=== PATIENT | female | born 1970 | race Caucasian/White ===

== ENCOUNTER → 2017-08-22 16:35 | Outpatient (CLI) | payer OTHER, SELFPAY ==
[2017-08-22 18:00] LABS: Erythrocyte Sedimentation Rate 25 mm/hr (0-20)
[2017-08-22 18:26] LABS: ALB/GLOB Ratio 1.1 RATIO (0.9-2.4); AST(SGOT) 19 U/L (15-37); Alanine Aminotransfer ALT/SGPT 32 U/L (13-56); Albumin, Serum 3.9 g/dL (3.2-5.0); Alkaline Phosphatase 79 U/L (45-117); Anion Gap 6 (5-15); BUN 13 mg/dL (7-18); BUN/Creat Ratio 15.8 RATIO (10-20); Calcium,Total 8.8 mg/dL (8.5-10.1); Chloride 109 mmol/L (98-107); Creatinine, Serum 0.82 mg/dL (0.55-1.02); EST Glomerular Filtration Rate 78 mL/min (>60); Est Glom Filt Rate - Afr Amer 95 mL/min (>60); Ferritin 126 ng/mL (8-252); Globulin 3.4 g/dL (2.2-4.2); Glucose 100 mg/dL (74-106); Potassium 3.8 mmol/L (3.5-5.1); Protein, Total 7.3 g/dL (6.4-8.2); Sodium Level 140 mmol/L (136-145); Thyroid Stim Hormone (TSH) 3.54 uIU/mL (0.358-3.74)
[2017-08-22 19:02] LABS: Microalbumin,Random Urine 39.4 mg/L (NO RANGE EST.); Microalbumin:Creatinine Ratio 22.4 mg/g CRE (<30 mg/g CRE)
[2017-08-24 11:18] LABS: Hep C Antibodies <0.1 s/co ratio (0.0-0.9)
[2017-08-26 16:09] LABS: Anti-Centromere B Ab <0.2 AI (0.0-0.9); Anti-Chromatin <0.2 AI (0.0-0.9); Anti-Jo <0.2 AI (0.0-0.9); Anti-Scleroderma-70 AB <0.2 AI (0.0-0.9); RNP Ab <0.2 AI (0.0-0.9); SJOGREN'S Anti-SS-A test < 0.2 AI (0.0-0.9); SJOGREN'S Anti-SS-B test < 0.2 AI (0.0-0.9); Smith Ab <0.2 AI (0.0-0.9)
[2017-08-27 11:43] LABS: Anti-dsDNA Ab <1 IU/mL (0-9)
== END ==
PROVIDERS: Family Provider Family Medicine; PCP Family Medicine; Visit Provider Family Medicine
DX: R53.83 Other fatigue (principal); R25.2 Cramp and spasm
CPT/HCPCS: 36415; 80053; 82043; 82570; 82728; 83735; 84443; 85652; 86038; 86225; 86235; 86803

== ENCOUNTER → 2017-09-12 15:15 | Outpatient (CLI) | payer OTHER, SELFPAY ==
[2017-09-12 17:56] LABS: Absolute Lymphocyte Count 2.92 X10^3/ul (0.83-4.51); Absolute Neutrophil Count 6.2 X10^3/uL (2.0-7.7); Basophil# 0.02 X10^3/uL; Basophil% 0.2 % (0-1); Eosinophil# 0.22 X10^3/uL; Eosinophils% 2.2 % (0-5); Hematocrit 37.5 % (37-47); Hemoglobin 12.8 g/dl (12.0-15.0); Lymphocyte # 2.92 X10^3/ul (4.0); Lymphocyte % 29.6 % (19-41); Mean Corp Hgb Conc 34.1 g/gl (32-36); Mean Corpuscular Hgb 30.3 pg (27.0-32.0); Mean Corpuscular Volume 88.9 fL (81-99); Mean Platelet Vol. 10.5 fl (6.2-12.0); Monocyte# 0.45 X10^3/uL; Monocyte% 4.6 % (0-10); Neutrophil # 6.23 X10^3/uL (2.7-7.7); Neutrophil % 63.3 % (47-70); Platelet Count 269 K/mm3 (150-450); RBC Distribution Width CV 13.8 % (11.6-14.6); RBC Distribution Width SD 44.9 fl (35.1-43.9); Red Blood Count 4.22 M/mm3 (4.2-5.4); White Blood Count 9.9 K/mm3 (4.4-11.0)
[2017-09-12 17:58] LABS: POSITIVE COUNT NO; POSITIVE DIFFERENTIAL NO; POSITIVE MORPHOLOGY NO
[2017-09-12 18:17] LABS: Erythrocyte Sedimentation Rate 25 mm/hr (0-20)
== END ==
PROVIDERS: Family Provider Family Medicine; PCP Family Medicine; Visit Provider Family Medicine
DX: R25.2 Cramp and spasm (principal)
CPT/HCPCS: 36415; 85025; 85652

== ENCOUNTER → 2018-05-14 15:19 | Outpatient (CLI) | payer OTHER, SELFPAY ==
--- NOTE | 2018-05-14 15:29 | RAD_ITS ---
STUDY: X-RAY CHEST REASON FOR EXAM: Female, 48 years old. Shortness of breath/dyspnea. TECHNIQUE: PA and lateral views of the chest. COMPARISON: None. FINDINGS: The lungs are clear and expanded. Scattered calcified granulomas. There is no demonstrated pleural abnormality. Normal size heart. Normal mediastinum and ayana. Normal visualized pulmonary arteries. Normal visualized aortic arch and descending thoracic aorta. Normal visualized thoracic spine. Normal visualized ribs, clavicles, and shoulders. There is no demonstrated abnormality of the visualized soft tissue structures of the upper abdomen. RAD/Chest PA and Lateral IMPRESSION: Normal x-ray examination of the chest. Electronically Signed: Jeremy Santana MD at 15:48 EST , Service support ,
--- OUTSIDE RECORDS SUMMARY | 2018-07-16 17:59 | XMS RPT_ITS ---
:1970 Author Organization [facility] Care Team Providers Name Role Phone Luis Whitney Attending Unavailable Luis Whitney Referring Unavailable Ron Gutierrez Primary Care Unavailable Ron Gutierrez Attending Unavailable Matt, Ron Referring Unavailable Gutierrez, Ron Primary Care Unavailable Gutierrez, Ron Attending Unavailable Gutierrez, Ron Referring Unavailable Gutierrez, Ron Primary Care Unavailable PROBLEMS PROBLEMS DATE TYPE CONDITION / CODE ATTENDING STATUS SOURCE 08/22/2017 Unknown R53.83 - Other Ron Gutierrez Active Clear fatigue / Community R53.83(ICD-10) Hospital Repository PROCEDURES PROCEDURES No Procedure Records FoundRESULTS RESULTS CHEST PA AND LATERAL Observed: 05/14/2018 Status: F Source: [place] 3:29 PM [facility] REPOSITORY [facility] Imaging Services [address] [place] [address] Chest PA and Lateral MR#: [id number] Acct: [id number] Name: SANDY DAVIDSON Rep #: [id number] : 1970 F 48 From: Jeremy Santana MD PCP: Ron Gutierrez MD Status: REG CLI Study: Chest PA and Lateral Date of Exam: 05/14/18 Exam# [id number] Ordering Dr: Luis Whitney STUDY: X-RAY CHEST REASON FOR EXAM: Female, 48 years old. Shortness of breath/dyspnea. TECHNIQUE: PA and lateral views of the chest. COMPARISON: None. FINDINGS: The lungs are clear and expanded. Scattered calcified granulomas. There is no demonstrated pleural abnormality. Normal size heart. Normal mediastinum and ayana. Normal visualized pulmonary arteries. Normal visualized aortic arch and descending thoracic aorta. Normal visualized thoracic spine. Normal visualized ribs, clavicles, and shoulders. There is no demonstrated abnormality of the visualized soft tissue structures of the upper abdomen. RAD/Chest PA and Lateral IMPRESSION: Normal x-ray examination of the chest. Electronically Signed: Jeremy Santana MD at 15:48 EST , Service support , CC: SRIRAM Whitney; Ron Gutierrez MD Revival Clerk: Signed CBC W/DIFF, AUTOMATED Collected: 09/12/2017 Status: F Source: [place] 3:20 PM [facility] REPOSITORY TYPE CODE TESTS RESULT OUT OF RANGE REFERENCE UNITS LAB L100.1000 4.4-11.0 K/mm3 Normal WBC 9.9 LAB L100.1200 4.2-5.4 M/mm3 Normal RBC 4.22 LAB L100.1300 12.0-15.0 g/dl Normal HGB 12.8 LAB L100.1400 37-47 % Normal HCT 37.5 LAB L100.1500 81-99 fL Normal MCV 88.9 LAB L100.1600 27.0-32.0 pg Normal MCH 30.3 LAB L100.1700 32-36 g/gl Normal MCHC 34.1 LAB L100.1810 11.6-14.6 % Normal RDW CV 13.8 LAB L100.1820 35.1-43.9 fl High RDW SD 44.9 LAB L100.1900 150-450 K/mm3 Normal PLT 269 LAB L100.2000 6.2-12.0 fl Normal MPV 10.5 LAB L100.2100 47-70 % Normal NEUT% 63.3 LAB L100.2200 19-41 % Normal LY% 29.6 LAB L100.2300 0-10 % Normal MONO% 4.6 LAB L100.2400 0-5 % Normal EO% 2.2 LAB L100.2500 0-1 % Normal BASO% 0.2 LAB L100.2550 0.0-0.9 % Normal IM GRAN % 0.100 Result Comment: IG% - Immature Granulocytes (promyelocytes, myelocytes and metamyelocytes) > 1% indicates that a LEFT SHIFT is Present. LAB L100.2620 2.0-7.7 X10 3/uL Normal Absolute Neut 6.2 LAB L100.2720 0.83-4.51 X10 3/ul Normal Absolute Lymph 2.92 Performed By: #### L100.0100, L101.9900 #### [facility] [address] [place], [place], [id number] ERYTHROCYTE SED RATE Collected: 09/12/2017 Status: F Source: [place] 3:20 PM [facility] REPOSITORY TYPE CODE TESTS RESULT OUT OF RANGE REFERENCE UNITS LAB L102.0000 0-20 mm/hr High SED RATE 25 Performed By: #### L100.0100, L101.9900 #### [facility] [address] [place], [place], [id number] ERYTHROCYTE SED RATE Collected: 08/22/2017 Status: F Source: [place] 4:43 PM [facility] REPOSITORY TYPE CODE TESTS RESULT OUT OF RANGE REFERENCE UNITS LAB L102.0000 0-20 mm/hr High SED RATE 25 Performed By: #### L101.9900 #### [facility] [address] [place], [place], [id number] COMPREHENSIVE METABOLIC Collected: 08/22/2017 Status: F Source: [facility] 4:43 PM [facility] REPOSITORY TYPE CODE TESTS RESULT OUT OF RANGE REFERENCE UNITS LAB L501.0100 74-106 mg/dL Normal GLU 100 Result Comment: Fasting Glucose result from 100 to 125 mg/dL suggests IMPAIRED HOMEOSTASIS per A.D.A. criteria. Please note revised GLUCOSE reference range effective 2017. LAB L501.1000 7-18 mg/dL Normal BUN 13 LAB L501.1100 0.55-1.02 mg/dL Normal CREAT,SERUM 0.82 Result Comment: The validity of the calculated GFR AND GFRAA in patients over 70 years has not been determined. Clinical correlation is essential. LAB L501.1110 >60 mL/min Normal EST GFR 78 Result Comment: Non- GFR Calc LAB L501.1115 >60 mL/min Normal EST GFR - AA 95 Result Comment: GFR Calc LAB L501.1300 10-20 RATIO Normal BUN/CRE 15.8 LAB L501.1500 6.4-8.2 g/dL T Normal PROT 7.3 LAB L501.1800 3.2-5.0 g/dL Normal ALB 3.9 LAB L501.1950 2.2-4.2 g/dL Normal GLOB 3.4 LAB L501.2000 0.9-2.4 RATIO Normal A/G 1.1 LAB L501.2200 8.5-10.1 mg/dL CA Normal 8.8 LAB L501.4100 15-37 U/L Normal AST 19 LAB L501.4305 45-117 U/L Normal ALK P 79 LAB L501.4405 13-56 U/L Normal ALT 32 LAB L501.4600 0.20-1.00 mg/dL T Normal BILI 0.60 LAB L501.5300 136-145 mmol/L NA Normal 140 LAB L501.5600 3.5-5.1 mmol/L K Normal 3.8 LAB L501.5900 98-107 mmol/L High CL 109 LAB L501.6100 21.0-32.0 mmol/L Normal CO2 25.0 LAB L501.6200 5-15 Normal GAP 6 Performed By: #### L500.4050, L501.5200, L501.9520, L503.6550 #### [facility] [address] [place], [address] MAGNESIUM Collected: 08/22/2017 Status: F Source: [place] 4:43 PM [facility] REPOSITORY TYPE CODE TESTS RESULT OUT OF RANGE REFERENCE UNITS LAB L501.5200 1.6-2.6 mg/dL Normal MG 2.0 Performed By: #### L500.4050, L501.5200, L501.9520, L503.6550 #### [facility] [address] [place], [place], [id number] THYROID STIM HORMONE Collected: 08/22/2017 Status: F Source: [place] (TSH) 4:43 PM [facility] REPOSITORY TYPE CODE TESTS RESULT OUT OF RANGE REFERENCE UNITS LAB L501.9520 0.358-3.74 uIU/mL Normal TSH 3.54 Performed By: #### L500.4050, L501.5200, L501.9520, L503.6550 #### [facility] [address] [place], [place], [id number] FERRITIN Collected: 08/22/2017 Status: F Source: [place] 4:43 PM [facility] REPOSITORY TYPE CODE TESTS RESULT OUT OF RANGE REFERENCE UNITS LAB L503.6550 8-252 ng/mL Normal FERRITIN 126 Performed By: #### L500.4050, L501.5200, L501.9520, L503.6550 #### [facility] [address] [place], [place], [id number] MICROALB:CREAT Collected: 08/22/2017 Status: F Source: [place] RATIO,RANDOM UR 4:43 PM [facility] REPOSITORY TYPE CODE TESTS RESULT OUT OF RANGE REFERENCE UNITS LAB L501.1200 NO RANGE EST. mg/dL Normal UR CREAT 176.00 LAB L502.0500 NO RANGE EST. mg/L Normal 39.4 MICROALBUMIN ,UR LAB L502.0600 <30 mg/g CRE mg/g CRE Normal 22.4 MALB:CREAT Performed By: #### L502.0250 #### [facility] [address] [place], [place], [id number] HEPATITIS C ANTIBODIES Collected: 08/22/2017 Status: F Source: [place] 4:43 PM [facility] REPOSITORY TYPE CODE TESTS RESULT OUT OF RANGE REFERENCE UNITS LAB L3100.0650 0.0-0.9 s/co ratio Normal HEP C AB <0.1 Result Comment: Negative: < 0.8 Indeterminate: 0.8 - 0.9 Positive: > 0.9 The CDC recommends that a positive HCV antibody result be followed up with a HCV Nucleic Acid Amplification test (729842). Performed at: - [facility] [address] [id number] Pediatrics Teacher: Perry Ríos PhD, Phone: [phone] Performed By: #### L3100.0625 #### [facility] (refer to report for specific site) refer to report for address and phone number LUIS COMPREHENSIVE PANEL Collected: 08/22/2017 Status: F Source: [place] 4:43 PM [facility] REPOSITORY TYPE CODE TESTS RESULT OUT OF RANGE REFERENCE UNITS LAB L3100.5500 0-9 IU/mL Normal dsDNA AB <1 Result Comment: Negative <5 Equivocal 5 - 9 Positive >9 LAB L3100.9200 0.0-0.9 AI Anti-SS-A Normal < 0.2 LAB L3100.9300 0.0-0.9 AI Anti-SS-B Normal < 0.2 LAB L3410.0427 0.0-0.9 AI ANTICHROMATIN Normal <0.2 LAB L3410.0500 0.0-0.9 AI ANTI-YARED Normal <0.2 LAB L3410.0700 0.0-0.9 AI ANTISCLER Normal <0.2 LAB L3410.1200 0.0-0.9 AI MANAGER PSYCHOLOGY Ab Normal <0.2 LAB L3410.1300 0.0-0.9 AI GUTIERREZ Ab Normal <0.2 LAB L3410.4010 0.0-0.9 AI ANTI-CENT B Normal <0.2 LAB L3410.4150 . COMMENT Normal Comment Result Comment: Autoantibody Disease Association Condition Frequency --------- Antinuclear Antibody, SLE, mixed connective Direct (LUIS-D) tissue diseases --------- dsDNA SLE 40 - 60% --------- Chromatin Drug induced SLE 90% SLE 48 - 97% --------- SSA (Ro) SLE 25 - 35% Sjogren's Syndrome 40 - 70% Lupus 100% --------- SSB (La) SLE 10% Sjogren's Syndrome 30% --------- Sm (anti-Gutierrez) SLE 15 - 30% --------- MANAGER PSYCHOLOGY Mixed Connective Tissue Disease 95% (U1 nRNP, SLE 30 - 50% anti-ribonucleoprotein) Polymyositis and/or Dermatomyositis 20% --------- Scl-70 (antiDNA Scleroderma (diffuse) 20 - 35% topoisomerase) Crest 13% --------- Yared-1 Polymyositis and/or Dermatomyositis 20 - 40% --------- Centromere B Scleroderma - Crest variant 80% Performed at: - [facility] [id number] Pediatrics Teacher: Perry Ríos PhD, Phone: [phone] Performed By: #### L3100.5440 #### [facility] (refer to report for specific site) refer to report for address and phone number ALLERGIES ALLERGIES DATE TYPE / CODE NAME / CODE REACTION SEVERITY SOURCE 02/02/2017 Drug No Known Unknown [facility] Allergy/4160 Allergies/F00 Hospital 97835(SNOMED [id number](RXNOR Repository CT) M) ENCOUNTERS ENCOUNTERS ADMIT/DISCHARGE ACCOUNT ADMITTING ENCOUNTER LOCATION SOURCE NUMBER CLASS 05/14/2018 [id number] Ambulatory [facility] Marybel 6 [facility] ing:MTRAD Repository 09/12/2017 [id number] Ambulatory [place]bel Marybel 7 [facility] ing:MTLAB Repository 08/22/2017 [id number] Ambulatory [place]bel Marybel 5 [facility] ing:MTLAB Repository PAYERS PAYERS ENCOUNTER GUARANTOR PAYER SUBSCRIBER SOURCE 05/14/2018 SANDY Ibanez Primary SANDY Franco [id number] [place] Insurance:MED[facility]ER[id number] [address]Eox: Number: Repository [id number] (HP) Date:[id number] [address] [place], [place] [id number]: 05/14/2018 Secondary NOT GIVENUNK Marybel Insurance:SELF PAY [facility] Number: Effective Repository Date:2018-05-14 09/12/2017 SANDY R Primary SANDY R Clear [id number] [place] Insurance:[place] [facility] [id number] [address]Rls: Number: Repository [id number] (HP) Date:[id number] [address] [place] [phone]: 09/12/2017 Secondary NOT GIVENUNK Marybel Insurance:SELF PAY [facility] Number: Effective Repository Date:2017-09-12 08/22/2017 SANDY R Primary SANDY R [place] [id number] [place] Insurance:MEDICAL [place] [facility] [id number] [address]Vyc: Number: Repository [id number] (HP) Date:[id number] [address] [place] [phone]: 08/22/2017 Secondary NOT GIVENUNK Marybel Insurance:SELF PAY [facility] Number: Effective Repository Date:2017-08-22
== END ==
PROVIDERS: Family Provider Family Medicine; PCP Family Medicine; Referring Provider Nurse Practitioner Family; Visit Provider Nurse Practitioner Family
DX: J06.9 Acute upper respiratory infection, unspecified (principal)
CPT/HCPCS: 71046

== ENCOUNTER → 2018-05-26 15:05 | Outpatient (CLI) | payer OTHER, SELFPAY ==
--- NOTE | 2018-05-26 15:08 | RAD_ITS ---
STUDY: X-RAY CHEST REASON FOR EXAM: Female, 48 years old. Dyspnea and shortness of breath. TECHNIQUE: PA and lateral views of the chest. COMPARISON: Comparison is made with prior study dated May 14, 2018. FINDINGS: The lungs are clear and expanded. Scattered calcified granulomas. There is no demonstrated pleural abnormality. Normal size heart. Normal mediastinum and ayana. Normal visualized pulmonary arteries. There is atherosclerotic tortuosity of the aortic arch and descending thoracic aorta. There are mild degenerative changes of the visualized thoracic spine. Normal visualized ribs, clavicles, and shoulders. There is no demonstrated abnormality of the visualized soft tissue structures of the upper abdomen. RAD/Chest PA and Lateral IMPRESSION: No acute abnormality is seen. Electronically Signed: Jeremy Santana MD at 11:25 EST , Service support ,
== END ==
PROVIDERS: Family Provider Family Medicine; PCP Family Medicine; Referring Provider Family Medicine; Visit Provider Family Medicine
DX: R06.02 Shortness of breath (principal)
CPT/HCPCS: 71046

== ENCOUNTER 2018-05-30 19:23 | Emergency (ER) | payer OTHER, SELFPAY ==
[2018-05-30 19:25] VITALS: BP 134/78; PULSE 87; RESP 16; TEMP 37; O2SAT 98; BMI 30.2
--- NOTE | 2018-05-30 20:00 | ED.DCSUM_ITS ---
- ER Visit Summary Date of Service: 05/30/18 Chief Complaint: Right upper quadrant abdominal pain History of Present Illness: The patient is a 48 F no significant past medical history. Prior appendectomy. Patient states she has had bronchitis. She been coughing a lot. She is currently on Levaquin and her second round of prednisone. States that she has had right upper quadrant abdominal pain for 10 days. She thinks she may have pulled something while coughing. She denies any nausea, vomiting or diarrhea. No fever. No food intolerances. She was seen at the [facility] urgent care earlier [facility] and had a negative chest x-ray done there. She denies any food intolerances. She denies any dysuria. No trauma. Physical Examination: Well-appearing middle-age female. Vital signs are stable. She is afebrile. HEENT exam unremarkable. Neck nontender no lymphadenopathy. Lungs clear to auscultation bilaterally. Heart regular rate and rhythm no murmur. Abdomen soft. Mild right upper quadrant tenderness below the rib cage. The ribs themselves are nontender and nondeformed. There is no signs of trauma. No ecchymosis or bruising. He had a quadrants of the abdomen including the right lower quadrant are nontender. Normal bowel sounds. No peritoneal signs. No hernias or masses. Remedies moves all 4. Calves nontender without edema. Neurologically she is awake alert with no focal motor deficits. Back exam nontender. Skin unremarkable. Test Results: CBC shows elevated white count 18,400. Hemoglobin 14. No bands. The white count may be elevated from infection but could also be secondary to her currently being on prednisone. Chemistries normal. Normal creatinine and gap. Liver enzymes normal. Lipase normal. Due to the elevated white count and right upper quadrant pain we obtained a ultrasound of the right upper quadrant. This showed no gallstones. No cholecystitis. And possibly a gallbladder polyp. Versus sludge. Read by the radiologist. Emergency Department Course and Treatment: Patient with right upper quadrant abdominal pain. Repeat exam at 2220 patient doing well. She and I went over all of her test results. She is comfortable being discharged home. She will be given 2 Wallace to take home for pain. Otherwise Tylenol and Motrin. Treatment Plan: Tylenol and Motrin for pain. Follow-up with your primary care physician. Disposition: Discharge Impression: Acute right upper quadrant abdominal pain of uncertain etiology This note was generated with Ksplice dictation software. It may contain incorrect words, spelling, and punctuation that were not noted in review of the chart prior to signing ED Disposition - Plan for ED Patient: Referrals: Ron Gutierrez MD [Primary Care Provider] -
[2018-05-30 20:14] LABS: Absolute Lymphocyte Count 0.84 X10^3/ul (0.83-4.51); Absolute Neutrophil Count 17.3 X10^3/uL (2.0-7.7); Basophil# 0.01 X10^3/uL; Basophil% 0.1 % (0-1); Hematocrit 41.9 % (37-47); Hemoglobin 14.2 g/dl (12.0-15.0); Lymphocyte # 0.84 X10^3/ul (4.0); Lymphocyte % 4.6 % (19-41); Mean Corp Hgb Conc 33.9 g/gl (32-36); Mean Corpuscular Hgb 30.6 pg (27.0-32.0); Mean Corpuscular Volume 90.3 fL (81-99); Mean Platelet Vol. 9.7 fl (6.2-12.0); Monocyte# 0.18 X10^3/uL; Neutrophil # 17.26 X10^3/uL (2.7-7.7); Neutrophil % 93.8 % (47-70); POSITIVE COUNT NO; POSITIVE DIFFERENTIAL NO; POSITIVE MORPHOLOGY NO; Platelet Count 274 K/mm3 (150-450); RBC Distribution Width CV 14.7 % (11.6-14.6); RBC Distribution Width SD 48.3 fl (35.1-43.9); Red Blood Count 4.64 M/mm3 (4.2-5.4); White Blood Count 18.4 K/mm3 (4.4-11.0)
[2018-05-30 20:32] LABS: AST(SGOT) 14 U/L (15-37); Alanine Aminotransfer ALT/SGPT 40 U/L (13-56); Alkaline Phosphatase 78 U/L (45-117); Anion Gap 10 (5-15); BUN 19 mg/dL (7-18); BUN/Creat Ratio 24.1 RATIO (10-20); Bilirubin, Direct 0.12 mg/dL (0.00-0.30); Calcium,Total 9.4 mg/dL (8.5-10.1); Chloride 105 mmol/L (98-107); Creatinine, Serum 0.79 mg/dL (0.55-1.02); EST Glomerular Filtration Rate 82 mL/min (>60); Est Glom Filt Rate - Afr Amer 99 mL/min (>60); Estimated Creatinine Clearance 91.32 ml/min; Globulin 3.9 g/dL (2.2-4.2); Glucose 130 mg/dL (74-106); Lipase 74 U/L (73-393); Protein, Total 7.9 g/dL (6.4-8.2); Sodium Level 137 mmol/L (136-145)
--- NOTE | 2018-05-30 20:42 | US_ITS ---
STUDY: ABDOMINAL ULTRASOUND - RIGHT UPPER QUADRANT REASON FOR VISIT: Female, 48 years old. Right upper quadrant pain TECHNIQUE: Ultrasound evaluation of the right upper quadrant was performed with real-time and static coffey-scale imaging. TECHNICAL QUALITY: Adequate. COMPARISON: None. FINDINGS: Liver: The liver measures 13.6 cm. There is normal echogenicity of the liver. The bile ducts are within normal limits. There is hepatic color flow. The direction of portal flow is hepatopetal. There is no demonstrated mass lesion. Gallbladder: Normal distended gallbladder. The gallbladder wall measures 2.0 mm. There is a negative sonographic Chau's sign. There is no pericholecystic fluid. There are no gallstones. There is a small nonshadowing polypoid structure measuring 7 mm. Common Bile Duct (C.B.D.): The common bile duct measures 3 mm. Pancreas: There is normal echogenicity of the visualized pancreas. There is no demonstrated pancreatic mass or cyst. Right Kidney: Normal size of the right kidney. The right kidney measures 11.6 cm. Normal renal cortex. The right cortex measures 1.8 cm. There is no demonstrated renal mass or cyst. There is no right hydronephrosis. US/Gallbladder IMPRESSION: 1. No shadowing gallstones or sonographic evidence of cholecystitis/biliary obstruction. 2. Subcentimeter gallbladder polyp versus tumefactive sludge. Electronically Signed: Gordo Cruz MD at 21:24 EST , Service support ,
[2018-05-30 22:12] VITALS: BP 132/76; PULSE 88; RESP 16; O2SAT 97
--- NOTE | 2018-05-30 22:26 | DCINST.ED_ITS ---
ED Disposition - Plan for ED Patient: Disposition: Home or Assisted Living Instructions: ED Abdominal Pain Unkn Cause Referrals: Ron Gutierrez MD [Primary Care Provider] - 3-5 Days if not improving Additional Instructions: Your pain may be secondary to strain of your abdominal wall from coughing. Your labs are unremarkable other than elevated white count which could be secondary to you being on the prednisone. The gallbladder ultrasound was unremarkable as were the other labs. Limited [place] for pain. Otherwise Tylenol and Motrin. Follow-up with your doctor if not improving.
[2018-05-30] MEDS: HYDROcodone Bitartrate/Apap 5/325 Tablet PO (22:39)
[2018-05-30 22:40] VITALS: BP 136/80; PULSE 89; RESP 16; O2SAT 98
== END 2018-05-30 22:40 | disposition home or self-care (01) ==
PROVIDERS: Emergency Provider Emergency Medicine; Family Provider Family Medicine; PCP Family Medicine
DX: R10.11 Right upper quadrant pain (principal); J40 Bronchitis, not specified as acute or chronic; Z72.0 Tobacco use
CPT/HCPCS: 76705; 80048; 80076; 83690; 85025; 99284; A4216

== ENCOUNTER 2018-07-24 06:45 | Emergency (ER) | payer OTHER, SELFPAY ==
[2018-07-24 06:47] VITALS: BP 121/79; PULSE 80; RESP 18; TEMP 36.6; O2SAT 100; BMI 30.3
--- NOTE | 2018-07-24 06:53 | RAD_ITS ---
STUDY: X-RAY - RIGHT SHOULDER REASON FOR EXAM: Upper humeral pain. TECHNIQUE: 4 view(s) of the shoulder. COMPARISON: None. FINDINGS: Normal glenohumeral articulation. Normal acromioclavicular joint. Normal acromion. Normal humeral head and visualized proximal humerus. There is a calcification at the inferior aspect of the glenohumeral joint suggestive of an intra-articular body. Normal visualized pulmonary apex. RAD/Shoulder min 2 Views IMPRESSION: Calcification at the inferior aspect of the glenohumeral joint suggestive of an intra-articular body. Electronically Signed: Luke Nguyen MD at 7:55 EDT Tel , Service support ,
--- NOTE | 2018-07-24 06:53 | ED.VIS.UPPEX ---
History of Present Illness Chief Complaint: Upper Extremity Injury Informant: Patient Onset: Yesterday Context: Sudden Onset Timing: Continuous Quality of Pain: Aching Current Severity: Moderate Maximum Severity: Severe Worsened by: Certain movements Relieved by: Nothing Associated Symptoms: Loss of Funtion - Secondary to pain. Negative for: Parasthesia, Weakness Narrative: Patient is a middle-aged [id number] woman who presents with pain that she localizes from the right shoulder to the right elbow. She cannot be more specific. In a radicular/dermatomal distribution. She says certain positions hurt more than others. Denies paresthesia, anesthesia motors. She denies prior problems with her shoulder. She has no other complaints. She has not taken anything for it. Tetanus Immunization: Unknown Prior similar symptoms: No Recent Illness/Hospitalization: No Past Medical History - Allergies and Home Meds Allergies/Adverse Reactions: Allergies No Known Allergies Allergy (Verified 07/24/18 06:50) Primary Care Physician: Ron Gutierrez MD [Primary Care Provider] - Prior records reviewed: Yes Past Medical History: None Lives: Alone Smoking Status: Current every day smoker Drugs: None Review of Systems General: Denies: Chills, Fever, Malaise, Subjective, Sweats, Weight loss, - Cardiovascular: Denies: Chest pain, Palpitations, Heart racing, -, - Respiratory: Denies: Dyspnea, Cough, Sputum, Dyspnea on exertion, Orthopnea, Paroxysmal nocturnal dyspnea, -, - Gastrointestinal: Denies: Nausea, Vomiting Musculoskeletal: Reports: Extremity Pain - Localizes the pain from the right shoulder to the right elbow.. Denies: Myalgias, Arthralgias, Neck pain, Back pain Skin: Denies: Rash Neurological: Denies: Headache, Weakness, Parasthesia, Numbness, -, - Hematologic: Denies: Easy bruising, Easy bleeding Physical Exam Vital Signs/Narrative: Vital Signs Temp Pulse Resp BP Pulse Ox 07/24/18 06:47 97.8 F 80 18 121/79 H 100 Inital Vital Signs reviewed: Yes - Vital signs are unremarkable. Right Shoulder: Limited ROM - Patient reports difficulty abduction, internal and external rotation of the right shoulder. She reports having difficulty unclamping her belt buckle and brushing her teeth this morning. There is no history of trauma. She has not noted a rash. She has no history of neck problems.. Negative for: Abrasion, Contusion, Deformity, Edema, Hematoma, - Right Humerus: Negative for: Abrasion, Contusion, Deformity, Edema, Hematoma, Limited ROM, - Right Elbow: Negative for: Abrasion, Contusion, Deformity, Edema, Hematoma, Limited ROM, - - There is no pain the patient over the olecranon process, lateral medial epicondyle or radial head. She did complain of pain in the arm/shoulder with supination pronation. Right Forearm: Negative for: Abrasion, Contusion, Deformity, Edema, Hematoma, Limited ROM, - Right Wrist: Negative for: Abrasion, Contusion, Deformity, Edema, Hematoma, Limited ROM, - Right Hand: Negative for: Abrasion, Contusion, Deformity, Edema, Hematoma, Limited ROM, - - Movement of her digits caused her discomfort. Radial pulse is palpable. Capillary refill is normal. General: Negative for: Well nourished, Well developed, Obese, Cachectic, Contractures, Unkempt, - Head: Normocephalic, Atraumatic Eyes: Perrl, EOMI. Negative for: Pale conjunctiva ENT: No Trauma, Moist Mucous Membranes Neck: Nontender, Full ROM. Negative for: Spinal Tenderness, Paraspinal Tenderness Cardiovascular: Regular rate, Regular rhythm, No murmurs, Normal S1, Normal S2 Respiratory: No distress, CTA bilaterally Back: Negative for: Spinal Tenderness, Paraspinal Tenderness Skin: Normal color, No rash. Negative for: Cyanosis, Jaundice, Rash Neurological: Alert, Oriented x3, Cranial nerves II-XII grossly intact, Normal Strength, Normal Sensation, Normal DTR - Biceps, brachialis and triceps reflexes are 3+ and symmetric. Axillary, median, radial and ulnar function intact. Psychological: - - Affect is flat. Diagnostic/Tx/Re-eval Chest X-Ray - ED: Read by ED Physician 4 view x-ray of the right shoulder was obtained and reveals no fracture, subluxation or dislocation. There are mild arthritic changes. There is no evidence of calcification of the supraspinatus tendon. - Medical Decision Making Patient with acute onset of shoulder pain. She is unable to specify specific location. There are no dermatologic lesions. There are no neurovascular deficits. She reports her hand is cold. Both hands are cold to touch. Will obtain x-ray to determine if there is any arthritic changes that may explain her discomfort. She was treated with Naprosyn since no contraindication. Differential would include muscular pain, arthritis, tendinitis, malignancy or occult fracture. Since arthritic changes noted will treat with NSAIDs is no contra indication have her follow-up with Dr. Ron Gutierrez her PCP. ED Disposition - Plan for ED Patient: Disposition: Home or Assisted Living Diagnosis: Pain of right shoulder region Instructions: ED Shoulder Pain [facility]O Prescriptions: Naproxen [Naprosyn] 500 mg PO BID #14 tab Referrals: Ron Gutierrez MD [Primary Care Provider] - 3-5 Days if not improving
[2018-07-24] MEDS: Naproxen 500 MG Tablet PO (06:58)
[2018-07-24 07:36] VITALS: BP 99/84; PULSE 78; RESP 16; O2SAT 98
== END 2018-07-24 07:40 | disposition home or self-care (01) ==
PROVIDERS: Emergency Provider Emergency Medicine; Family Provider Family Medicine; PCP Family Medicine
DX: M25.511 Pain in right shoulder (principal); F17.200 Nicotine dependence, unspecified, uncomplicated
CPT/HCPCS: 73030; 99283

== ENCOUNTER 2018-09-04 12:00 | Outpatient (RCR) | payer OTHER, SELFPAY ==
[2018-07-30 09:08] VITALS: BMI 30.3
--- NOTE | 2018-08-15 08:53 | HP.PTEVAL ---
Patient's Visit Information SANDY DAVIDSON is a 48 year old F referred to Physical Therapy by DAVE Sorenson with a diagnosis of R shoulder pain. Date of Evaluation: 08/15/18 Physical Therapist: Ron Davalos, VINEETT, OCS, CSCS - Visit Plan Frequency: 2x /Week Duration: 4-6 Weeks Plan: P/AROM R shoulder, RC and scap /postural strength, progression of HEP, Work sim when painfree. Pec stretches. Ice as needed. ES if pain returns. Ergonomics and work activty modification as needed toa void future problems. - Subjective Findings: R shoulder pain. Couldn't move arm two weeks ago. Shoulder to elbow hurts on R. Present since July 24 insidious onset starting at work as she does repetitious stuff but did not do anything unusual. Went home early due to pain. May have had a little bit of something prior. Then was crying from pain. Saw Dr. Gutierrez and gave Gabapentin and they helped a little. Sent to [facility] a week later and excruciating pain. Was off work and is currently off. Got cortisone shot which did not help. Improved this week as she can now reach a little bit(was using L arm for everything, is R handed). Not sure why this week is better but has been off week most of this month. Sleep is OK now but was keeping her up. Typically sleeps on back or side. 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 Can do basic ADLs now but it was rough for a while there. Hobbies include camping and floating on [place].(not lately). Given pendulum and does it a little bit. Overall 40% better than previously. - Pain R shoulder Pain Intensity (Out of 10): 4 Pain Intensity Range: 3, 6 - Objective Posture is forward protruded scapula and head. Holds R arm stiff. Tender to touch minimally over R supraspinatus. c/s AROM is symmetrical and WNL without pain. elbow and wrist AROM WNL and strength is normal and painfree. L shoulder AROM WNL. R shoulder AROM hesitant in elevation and to 135 with pain, external rotation full but pain at end range adn IR slow and painful but full ROM. PROM Full at R shoulder and much less pain than active. Strength R shoulder ext rotation 3+ pain, IR 4 mild pain, elevation 3+ and pain flexion and abduction, extension not painful and 4/5. Bi and triceps R 4+ and no pain. + R HK and Neer impingement tests, - labral tests, - scour, - drop arm and - ext rotation lag test. reflexes 2/3 bi and triceps. Sensation UE WNL to gross light touch B. - Goals Goal 1:: Painfree at rest Goal Time Frame: 2-4 Weeks Goal 2:: Full aROM without pain R shoulder to do hair and reach into cupboards. Goal Time Frame: 4-6 Weeks Goal 3:: I approp strength posture, RC and return to functiona ctivities. Goal Time Frame: 4-6 Weeks Goal 4:: Return to work without limitations or increased pain Goal Time Frame: 4-6 Weeks - Rehabilitation Potential Physical Therapy Diagnosis: R likely RC tendonitis/strain. Rehabilitation Potential: Good - Anticipated Interventions Patient/Client Instruction: Educate patient on: Condition, Plan of Care For the Purpose of:: To decrease pain, To increase ROM, To improve muscle performance and motor function, To improve ability of physical actions for home/community/work/leisure Therapeutic Exercise to Include: Strength training, Postural training, Flexibilty training, Passive ROM, Active ROM For the Purpose of:: To decrease pain, To increase ROM, To improve muscle performance and motor function, To improve ability of physical actions for home/community/work/leisure TENS: Yes Cryotherapy (ice pack, ice massage): Yes For the Purpose of:: To decrease pain Thank you for the opportunity to evaluate your patient. For Medicare and Medicare HMO plans, please review the plan of care and approve it. It will need to be FAXED BACK to us at [phone] for Medicare purposes. For Medicare only, by signing this I certify the plan of care. Please let me know if there are questions or concerns regarding this plan of care. Physician Signature: Date:
--- NOTE | 2018-09-04 12:36 | HP.PTDCSUM_ITS ---
HP - PT D/C Summary It has been my pleasure to treat SANDY DAVIDSON under orders from DAVE Sorenson, for the diagnosis of R shoulder pain for a total of 5 visit(s). Discharge Date: 09/04/18 Please see the following information for a summary of their discharge status. - Subjective Subjective: No pain. Tender but not painful . 0/10. Sleep is OK. Activities at home normal. Back to work next week. 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 activities Will try to do exercises at home. To doctor on Saturday. - Pain R shoulder Pain Intensity (Out of 10): 0 - Overall Improvement % Improvement: 100 - Objective Objective/Function: Full AROM B shoulders. strength is 4+ without pain except IR at 90 abd whcih is slightly uncomfortable. Much improved postural focus. - Goals Goal 1:: Painfree at rest Goal Progress: Goal Met Goal 2:: Full aROM without pain R shoulder to do hair and reach into cupboards. Goal Progress: Goal Met Goal 3:: I approp strength posture, RC and return to functiona ctivities. Goal Progress: comliance? Goal 4:: Return to work without limitations or increased pain Goal Progress: Saturday. - Plan Plan: D/C to HEP. PT to attempt return to work Saturday and attempt to limit [place] work. - D/C Information Discharge Comments: Doing well and ready to attempt return to work. Should limit [place] work as able and continue strength I at home. If there are questions or concerns regarding this patient's physical therapy, quinn funez feel free to call me at [phone]. Thank you for the referral of this patient. Sincerely, Ron Davalos, DPT, OCS, CSCS
== END 2018-09-04 19:00 | disposition home or self-care (01) ==
LOC: PT 12:00
PROVIDERS: Family Provider Family Medicine; PCP Family Medicine; Referring Provider Physician Assistant; Visit Provider Physician Assistant
DX: M25.511 Pain in right shoulder (principal)
CPT/HCPCS: 97110; 97161; 97530

== ENCOUNTER → 2019-09-22 10:56 | Outpatient (CLI) | payer OTHER, SELFPAY ==
[2018-07-30 09:08] VITALS: BMI 30.3
[2019-09-22 12:14] LABS: Absolute Lymphocyte Count 2.01 X10^3/uL (0.83-4.51); Absolute Neutrophil Count 6.3 X10^3/uL (2.0-7.7); Basophil# 0.03 X10^3/uL; Basophil% 0.3 % (0-1); Eosinophil# 0.17 X10^3/uL; Eosinophils% 1.9 % (0-5); Hematocrit 42.2 % (37-47); Lymphocyte # 2.01 X10^3/ul (4.0); Mean Corp Hgb Conc 33.2 g/dL (32-36); Mean Corpuscular Hgb 30.3 pg (27.0-32.0); Mean Corpuscular Volume 91.3 fL (81-99); Mean Platelet Vol. 10.7 fl (6.2-12.0); Monocyte# 0.57 X10^3/uL; Monocyte% 6.3 % (0-10); NRBC Flagged by Analyzer 0 % (0-5); Neutrophil # 6.29 X10^3/uL (2.7-7.7); Platelet Count 270 K/mm3 (150-450); RBC Distribution Width CV 13.5 % (11.6-14.6); RBC Distribution Width SD 45.6 fl (35.1-43.9); Red Blood Count 4.62 M/mm3 (4.2-5.4); White Blood Count 9.1 K/mm3 (4.4-11.0)
[2019-09-22 13:03] LABS: ALB/GLOB Ratio 0.9 RATIO (0.9-2.4); AST(SGOT) 14 U/L (15-37); Alanine Aminotransfer ALT/SGPT 25 U/L (13-56); Albumin, Serum 3.6 g/dL (3.2-5.0); Alkaline Phosphatase 88 U/L (45-117); Anion Gap 6 (5-15); BUN 12 mg/dL (7-18); BUN/Creat Ratio 15.8 RATIO (10-20); Chloride 107 mmol/L (98-107); Creatinine, Serum 0.76 mg/dL (0.55-1.02); EST Glomerular Filtration Rate 85 mL/min (>60); Est Glom Filt Rate - Afr Amer 103 mL/min (>60); Globulin 3.8 g/dL (2.2-4.2); Glucose 125 mg/dL (74-106); Potassium 4.3 mmol/L (3.5-5.1); Protein, Total 7.4 g/dL (6.4-8.2); Sodium Level 138 mmol/L (136-145); Thyroid Stim Hormone (TSH) 1.85 uIU/mL (0.358-3.74)
[2019-09-22 13:10] LABS: Hemoglobin A1c 5.4 % (3.8-5.6)
== END ==
PROVIDERS: PCP Family Medicine; Referring Provider Family Medicine; Visit Provider Family Medicine
DX: F32.1 Major depressive disorder, single episode, moderate (principal)
CPT/HCPCS: 36415; 80053; 83036; 84443; 85025

== ENCOUNTER → 2019-12-07 08:23 | Outpatient (CLI) | payer OTHER, SELFPAY ==
[2019-12-07 07:52] VITALS: BMI 30.3
--- NOTE | 2019-12-07 08:27 | RAD_ITS ---
STUDY: X-RAY - RIGHT SHOULDER REASON FOR EXAM: Female, 49 years old. NO KNOWN RECENT INJURY. PAIN IN RIGHT SHOULDER FOR ABOUT 1 YEAR. TECHNIQUE: 4 view(s) of the shoulder. COMPARISON: 07/24/2018 FINDINGS: Normal glenohumeral articulation. There is degenerative arthrosis of the acromioclavicular joint without inferior osseous spur formation. Normal acromion. Normal humeral head and visualized proximal humerus. The soft tissue structures are unremarkable. Normal visualized pulmonary apex. RAD/Shoulder min 2 Views IMPRESSION: Mild acromioclavicular joint arthrosis Electronically Signed: Haider Stauffer MD at 10:28 EDT , Service support ,
== END ==
LOC: HPRAD 08:24
PROVIDERS: PCP Family Medicine; Referring Provider Orthopaedic Surgery; Visit Provider Orthopaedic Surgery
DX: M25.511 Pain in right shoulder (principal)
CPT/HCPCS: 73030

== ENCOUNTER → 2019-12-14 15:35 | Outpatient (CLI) | payer OTHER, SELFPAY ==
[2018-07-30 09:08] VITALS: BMI 30.3
[2019-12-07 07:52] VITALS: BMI 30.3
--- NOTE | 2019-12-14 15:36 | BI_ITS ---
MAMMOGRAPHY - BILATERAL SCREENING REASON FOR EXAM: Female, 49 years old. Routine annual screening examination. PERTINENT HISTORY: Non-contributory. TECHNIQUE: Digital bilateral breast alphonso (3D mammographic acquisition) in the CC and MLO projections. 2-D mediolateral oblique (MLO) and craniocaudad (CC) views of both breasts were obtained. CAD: Full Field Digital Mammography with Computer Added Detection was performed. COMPARISON: Comparison is made with prior outside examination dated 03/15/2015. FINDINGS: Breast Composition: The breasts are heterogeneously dense, which may obscure small masses. There are no dominant masses or suspicious calcifications. Stable small benign-appearing bilateral axillary lymph nodes. No other significant abnormalities are identified. There has been no significant change since the prior study. BI/SCREEN MAMM (CAD) W/ALPHONSO BILAT IMPRESSION: Stable bilateral screening mammogram. Yearly follow-up mammogram recommended. (A) ASSESSMENT CATEGORY: BIRADS Category 2: Benign. A letter regarding these results will be sent to the patient by the facility within 30 days. Approximately 10% of breast cancers are not detected by mammography. A normal mammogram should not delay biopsy of a clinically suspicious abnormality. [id number] Electronically Signed: Jeremy Santana, at 8:12 EDT , Service support ,
== END ==
PROVIDERS: PCP Family Medicine; Referring Provider Family Medicine; Visit Provider Family Medicine
DX: Z12.31 Encounter for screening mammogram for malignant neoplasm of breast (principal)
CPT/HCPCS: 77063; 77067

== ENCOUNTER → 2019-12-25 11:30 | Outpatient (CLI) | payer OTHER, SELFPAY ==
[2019-12-07 07:52] VITALS: BMI 30.3
--- NOTE | 2019-12-25 11:30 | RAD_ITS ---
CLINICAL HISTORY: Female, 49 years old. Chronic right shoulder pain. PROCEDURE: ARTHROGRAM - RIGHT SHOULDER CONSENT: The procedure as well as the benefits and possible complications including infection and bleeding were explained to the patient. Informed consent was obtained. FLUOROSCOPY TIME (if supplied): (42 seconds) minutes/seconds. Injection Information: 10 cc of diluted DOTAREM Number of images obtained: 4 TECHNIQUE: (All elements of maximal sterile barrier technique followed, including US elements as applicable) The patient was in the supine position. The overlying skin was prepped and draped in usual sterile fashion. Following local anesthetic application and under direct fluoroscopic guidance, a 22-gauge spinal needle was advanced into the shoulder joint. 2 cc of ISOVUE 300 was injected for confirmation. Following this, 10 cc of dilute MRI contrast was injected. The patient tolerated the procedure well. RAD/Arthrogram Shoulder w/ MRI IMPRESSION: Successful right shoulder arthrogram prior to MRI examination. The patient tolerated the procedure well. Electronically Signed: Jeremy Santana, at 12:58 EDT , Service support ,
--- NOTE | 2019-12-25 13:00 | MRI_ITS ---
STUDY: MR RIGHT SHOULDER ARTHROGRAPHY REASON FOR EXAM: Right shoulder pain and limited range of motion for one year, no specific injury. TECHNIQUE: Standardized fat and water weighted pulse sequences were obtained in all 3 orthogonal planes after intra-articular instillation of dilute Dotarem. COMPARISON: Radiographs 12/07/2019. FINDINGS: There is a small linear full-thickness tear of the supraspinatus tendon (T1 coronal image 12) with delamination extending into the infraspinatus tendon (T1 coronal images 9-11). Normal subscapularis tendon. Normal teres minor tendon. Normal supraspinatus muscle. Normal infraspinatus muscle. Normal subscapularis muscle. Normal teres minor muscle. Normal glenohumeral articulation. There is very mild bone edema in the anterior aspect of the greater tuberosity. Normal biceps labral complex. Normal intracapsular long biceps tendon. Normal labrum. Normal capsulo- ligamentous complex. Normal rotator interval. There is acromioclavicular arthrosis with mild hypertrophic changes (T2 sagittal image 9). There is a Type II morphology (curved), with a neutral orientation. There is contrast in the subacromial-subdeltoid bursa. Normal visualized coracohumeral and coracoacromial ligaments. Normal deltoid muscle. Normal trapezius muscle. MRI/Upper Ext Jt Only W/Contrast IMPRESSION: Small full-thickness tear of the supraspinatus tendon with delamination. Acromioclavicular arthrosis. No demonstrated labral tear. Electronically Signed: Luke Nguyen MD at 13:31 EDT Tel , Service support ,
== END ==
LOC: RAD 11:30
PROVIDERS: PCP Family Medicine; Referring Provider Orthopaedic Surgery; Visit Provider Orthopaedic Surgery
DX: M19.011 Primary osteoarthritis, right shoulder (principal); M24.111 Other articular cartilage disorders, right shoulder; M25.511 Pain in right shoulder
CPT/HCPCS: 23350; 73222; 77002; A9575; Q9967

== ENCOUNTER → 2020-01-15 | Outpatient (CLI) | payer OTHER, SELFPAY ==
[2019-12-30 07:54] VITALS: BMI 30.3
== END | disposition home or self-care (01) ==
PROVIDERS: PCP Family Medicine; Referring Provider Family Medicine; Visit Provider Family Medicine
DX: R09.89 Other specified symptoms and signs involving the circulatory and respiratory systems (principal)
CPT/HCPCS: 87635; U0003

== ENCOUNTER → 2020-01-21 16:41 | Outpatient (CLI) | payer OTHER, SELFPAY ==
[2019-12-30 07:54] VITALS: BMI 30.3
--- NOTE | 2020-01-21 16:43 | RAD_ITS ---
STUDY: X-RAY CHEST REASON FOR EXAM: Female, 49 years old. Bronchitis -- sob, cough TECHNIQUE: PA and lateral views of the chest. COMPARISON: 05/26/2018 FINDINGS: There is no new focal consolidation. There are stable prominent interstitial markings. Normal size heart. Normal mediastinum and ayana. Normal visualized pulmonary arteries. Normal visualized aortic arch and descending thoracic aorta. There are diffuse degenerative changes of the visualized thoracic spine. Normal visualized ribs, clavicles, and shoulders. There is no demonstrated abnormality of the visualized soft tissue structures of the upper abdomen. RAD/Chest PA and Lateral IMPRESSION: Stable examination demonstrating no acute cardiopulmonary process. Electronically Signed: Natalee Kunz MD at 16:58 EDT Tel , Service support ,
== END ==
LOC: MTRAD 16:43
PROVIDERS: PCP Family Medicine; Referring Provider Family Medicine; Visit Provider Family Medicine
DX: J20.9 Acute bronchitis, unspecified (principal)
CPT/HCPCS: 71046

== ENCOUNTER → 2020-02-02 16:31 | Outpatient (CLI) | payer OTHER, SELFPAY ==
[2019-12-30 07:54] VITALS: BMI 30.3
[2020-02-02 17:43] LABS: Absolute Lymphocyte Count 2.58 X10^3/uL (0.83-4.51); Absolute Neutrophil Count 7.5 X10^3/uL (2.0-7.7); Basophil# 0.04 X10^3/uL; Basophil% 0.4 % (0-1); Eosinophil# 0.22 X10^3/uL; Hematocrit 41.1 % (37-47); Hemoglobin 13.8 g/dL (12.0-15.0); Lymphocyte # 2.58 X10^3/ul (4.0); Lymphocyte % 23.3 % (19-41); Mean Corp Hgb Conc 33.6 g/dL (32-36); Mean Corpuscular Hgb 30.6 pg (27.0-32.0); Mean Corpuscular Volume 91.1 fL (81-99); Mean Platelet Vol. 10.6 fl (6.2-12.0); Monocyte# 0.69 X10^3/uL; Monocyte% 6.2 % (0-10); NRBC Flagged by Analyzer 0 % (0-5); Neutrophil # 7.49 X10^3/uL (2.7-7.7); Neutrophil % 67.6 % (47-70); Platelet Count 323 K/mm3 (150-450); RBC Distribution Width CV 13.5 % (11.6-14.6); RBC Distribution Width SD 45.4 fl (35.1-43.9); Red Blood Count 4.51 M/mm3 (4.2-5.4); White Blood Count 11.1 K/mm3 (4.4-11.0)
[2020-02-02 18:35] LABS: AST(SGOT) 20 U/L (15-37); Alanine Aminotransfer ALT/SGPT 31 U/L (13-56); Albumin, Serum 3.8 g/dL (3.2-5.0); Alkaline Phosphatase 89 U/L (45-117); Anion Gap 9 (5-15); BUN 12 mg/dL (7-18); BUN/Creat Ratio 15.1 RATIO (10-20); CRP 8.09 mg/L (0.0-3.0); Calcium,Total 9.2 mg/dL (8.5-10.1); Chloride 104 mmol/L (98-107); Creatinine, Serum 0.79 mg/dL (0.55-1.02); EST Glomerular Filtration Rate 81 mL/min (>60); Est Glom Filt Rate - Afr Amer 98 mL/min (>60); Globulin 3.8 g/dL (2.2-4.2); Glucose 84 mg/dL (74-106); Lipase 65 U/L (73-393); Potassium 3.4 mmol/L (3.5-5.1); Protein, Total 7.6 g/dL (6.4-8.2); Sodium Level 138 mmol/L (136-145)
== END ==
PROVIDERS: PCP Family Medicine; Referring Provider Family Medicine; Visit Provider Family Medicine
DX: R10.11 Right upper quadrant pain (principal)
CPT/HCPCS: 36415; 80053; 83690; 85025; 86140

== ENCOUNTER → 2020-02-03 10:25 | Outpatient (CLI) | payer OTHER, SELFPAY ==
[2019-12-30 07:54] VITALS: BMI 30.3
--- NOTE | 2020-02-03 10:28 | US_ITS ---
STUDY: ABDOMINAL ULTRASOUND - RIGHT UPPER QUADRANT REASON FOR VISIT: Female, 49 years old. Right upper quadrant pain for 2 weeks TECHNIQUE: Ultrasound evaluation of the right upper quadrant was performed with real-time and static coffey-scale imaging. TECHNICAL QUALITY: Adequate. COMPARISON: May 30 2018 FINDINGS: Liver: The liver measures 13.5 cm. There is normal echogenicity of the liver. The bile ducts are within normal limits. There is hepatic color flow. The direction of portal flow is hepatopetal. There is no demonstrated mass lesion. Gallbladder: Normal distended gallbladder. The gallbladder wall measures 3 mm. There is a negative sonographic Chau''s sign. There is no pericholecystic fluid. There are no gallstones. There is a 7 mm gallbladder polyp. Common Bile Duct (C.B.D.): The common bile duct measures 3 mm. Pancreas: Normal size of the head, body and tail of the pancreas. There is increased echogenicity of the pancreas. There is no demonstrated pancreatic mass or cyst. Right Kidney: Normal size of the right kidney. The right kidney measures 10.8 x 4.8 x 4.0 cm. Normal renal cortex. The right cortex measures 1.3 cm. There is no demonstrated renal mass or cyst. There is no right hydronephrosis. US/Abdomen Limited IMPRESSION: Stable exam. Unremarkable right upper quadrant ultrasound. No gallstones. Electronically Signed: Karmen Spears, at 15:59 EDT Tel , Service support ,
== END ==
LOC: US 10:26
PROVIDERS: PCP Family Medicine; Referring Provider Family Medicine; Visit Provider Family Medicine
DX: R10.11 Right upper quadrant pain (principal)
CPT/HCPCS: 76705

== ENCOUNTER → 2020-02-04 15:16 | Outpatient (CLI) | payer OTHER, SELFPAY ==
[2019-12-30 07:54] VITALS: BMI 30.3
--- NOTE | 2020-02-04 15:23 | RAD_ITS ---
STUDY: X-RAY CHEST REASON FOR EXAM: Female, 49 years old. Patient is having RUQ pain, no other complaints TECHNIQUE: PA and lateral views of the chest. COMPARISON: 01/21/2020 FINDINGS: There is no new focal consolidation. Normal size heart. Normal mediastinum and ayana. Normal visualized pulmonary arteries. Normal visualized aortic arch and descending thoracic aorta. There are diffuse degenerative changes of the visualized thoracic spine. Normal visualized ribs, clavicles, and shoulders. There is no demonstrated abnormality of the visualized soft tissue structures of the upper abdomen. RAD/Chest PA and Lateral IMPRESSION: No acute cardiopulmonary process. Electronically Signed: Natalee Kunz MD at 15:45 EDT Tel , Service support ,
== END ==
LOC: MTRAD 15:21
PROVIDERS: PCP Family Medicine; Referring Provider Family Medicine; Visit Provider Family Medicine
DX: R10.11 Right upper quadrant pain (principal)
CPT/HCPCS: 71046

== ENCOUNTER → 2021-01-31 16:50 | Outpatient (CLI) | payer OTHER, SELFPAY ==
--- NOTE | 2021-01-31 16:52 | RAD_ITS ---
STUDY: X-RAY - PELVIS AND RIGHT HIP REASON FOR EXAM: Female, 50 years old. Right hip and thigh pain. TECHNIQUE: 3 views of the pelvis and hip. COMPARISON: None. FINDINGS: There is a non-specific bowel gas pattern. Normal visualized soft tissue structures. There are multiple calcified phleboliths. Normal bilateral iliac wings, sacroiliac joints and visualized sacrum. Normal bilateral superior and inferior pubic rami. Normal pubic symphysis. Normal bilateral ischial tuberosities. Normal visualized right femoral head. Normal right acetabulum. Normal right hip joint. RAD/HIP, UNI W/ Pelvis 2-3 Views IMPRESSION: Normal x-ray examination of the pelvis and right hip. No fracture or dislocation. Electronically Signed: Parish Whipple DO at 16:16 EDT Tel [phone], Service support ,
[2021-01-31 17:55] LABS: Absolute Lymphocyte Count 2.66 X10^3/uL (0.83-4.51); Absolute Neutrophil Count 5.9 X10^3/uL (2.0-7.7); Basophil# 0.02 X10^3/uL; Basophil% 0.2 % (0-1); Eosinophil# 0.27 X10^3/uL; Eosinophils% 2.9 % (0-5); Hematocrit 39.6 % (37-47); Hemoglobin 13.5 g/dL (12.0-15.0); Lymphocyte # 2.66 X10^3/ul (0.83-4.51); Lymphocyte % 28.3 % (19-41); Mean Corp Hgb Conc 34.1 g/dL (32-36); Mean Corpuscular Hgb 30.3 pg (27.0-32.0); Mean Corpuscular Volume 88.8 fL (81-99); Mean Platelet Vol. 10.4 fl (6.2-12.0); Monocyte# 0.51 X10^3/uL; Monocyte% 5.4 % (0-10); NRBC Flagged by Analyzer 0 % (0-5); Neutrophil # 5.91 X10^3/uL (2.7-7.7); Neutrophil % 62.8 % (47-70); Platelet Count 292 K/mm3 (150-450); RBC Distribution Width CV 13.7 % (11.6-14.6); RBC Distribution Width SD 44.7 fl (35.1-43.9); Red Blood Count 4.46 M/mm3 (4.2-5.4); White Blood Count 9.4 K/mm3 (4.4-11.0)
[2021-01-31 18:22] LABS: Hemoglobin A1c 5.5 % (3.8-5.6)
[2021-01-31 18:47] LABS: PTHIN 52.7 pg/mL (18.4-80.1)
[2021-01-31 19:44] LABS: AST(SGOT) 19 U/L (15-37); Alanine Aminotransfer ALT/SGPT 27 U/L (13-56); Albumin, Serum 3.8 g/dL (3.2-5.0); Alkaline Phosphatase 109 U/L (45-117); Anion Gap 8 (5-15); BUN 14 mg/dL (7-18); BUN/Creat Ratio 17.1 RATIO (10-20); Calcium,Total 9.5 mg/dL (8.5-10.1); Chloride 105 mmol/L (98-107); Creatinine, Serum 0.82 mg/dL (0.55-1.02); EST Glomerular Filtration Rate 78 mL/min (>60); Est Glom Filt Rate - Afr Amer 94 mL/min (>60); Ferritin 126 ng/mL (8-252); Follicle Stimulating Hormone 78.3 mIU/mL; Globulin 3.8 g/dL (2.2-4.2); Glucose 81 mg/dL (74-106); Luteinizing Hormone 38.2 mIU/mL; Potassium 3.5 mmol/L (3.5-5.1); Protein, Total 7.6 g/dL (6.4-8.2); Sodium Level 140 mmol/L (136-145); Thyroid Stim Hormone (TSH) 3.33 uIU/mL (0.358-3.74)
== END ==
PROVIDERS: PCP Family Medicine; Referring Provider Family Medicine; Visit Provider Family Medicine
DX: M79.604 Pain in right leg (principal); R25.2 Cramp and spasm; E07.9 Disorder of thyroid, unspecified; N95.1 Menopausal and female climacteric states
CPT/HCPCS: 36415; 73502; 80053; 82728; 83001; 83002; 83036; 83970; 84443; 85025

== ENCOUNTER 2021-03-13 09:38 | Day surgery (SDC) | payer OTHER, SELFPAY ==
--- NOTE | 2021-03-13 | COLBX_PTH ---
PATIENT: SANDY DAVIDSON LOC: EN U#:[id number] AGE/SX: 50/F ROOM: RE03/13/[address]: Dr. Mathew Peña DO : 1970 BED: DIS: 03/13/2021 SPEC #: [id number] RECD: 03/13/21 14:57 STATUS: MONICA ELPIDIO #: [id number] BRADY: 03/13/21 00:[address]: Mathew Peña DEPT: SURGICAL PATHOLOGY RECD BY: Aidan Renner ENTERED: 03/14/21 09:20 SP TYPE: COLON BX OTHR DR: Dr. Ron Gutierrez MD Tissues: A - Descending colon B - Transverse colon C - Cecum, NOS D - Gastric mucous membrane E - Gastric mucous membrane Sigmoid colon biopsy Procedures: Surgery Specimen Level IV HEADER OPERATION: Colonoscopy ? open access PRE-OP DIAGNOSIS: Screening TISSUE SUBMITTED: A ? Descending colon polyps (4), B ? Transverse polyp, C ? Cecal polyp, D ? Hepatic flexure polyp biopsy, E - Hepatic flexure mass biopsy, F ? Sigmoid polyp MICROSCOPIC DIAGNOSIS A. Descending colon polyps, biopsy: Fragments of tubular adenoma. B. Transverse colon polyp, biopsy: Tubular adenoma. C. Cecal polyp, biopsy: Polypoid fragment of benign colonic mucosa. D. Colonic polyp at hepatic flexure, biopsy: Hyperplastic polyp. E. Colonic mass at hepatic flexure, biopsy: Invasive moderately differentiated adenocarcinoma. See Comment. F. Transverse colon polyp, biopsy: Tubular adenoma. AM;am 03/15/21 COMMENT E. MSI study is pending and will be reported separately. Case has been reviewed in consultation with Dr. Martines who concurs with the above diagnosis. IDC:SJ MICROSCOPIC DESCRIPTION Slides are reviewed. GROSS DESCRIPTION A - Received in fixative is one container labeled with the patient's name and designated descending colon polyps. The specimen consists of multiple irregular fragments of light carias soft tissue that in aggregate measure 2.5 x 1 x 0.2 cm. The specimen is totally submitted in one cassette. B - Received in fixative is one container labeled with the patient's name and designated transverse polyp. The specimen consists of multiple irregular fragments of light carias soft tissue mixed with fecal material that in aggregate measure 2.5 x 1 x 0.1 cm. The specimen is totally submitted in one cassette. C - Received in fixative is one container labeled with the patient's name and designated cecal biopsy. The specimen consists of two irregular fragments of light carias soft tissue that in aggregate measure 0.5 x 0.3 x 0.1 cm. The specimen is totally submitted in one cassette. D - Received in fixative is one container labeled with the patient's name and designated hepatic flexure polyp. The specimen consists of one irregular fragment of light carias soft tissue that measures 0.3 x 0.2 x 0.1 cm. The specimen is totally submitted in one cassette. E - Received in fixative is one container labeled with the patient's name and designated hepatic flexure mass biopsy. The specimen consists of multiple irregular fragments of light carias soft tissue that in aggregate measure 2.5 x 0.5 x 0.1 cm. The specimen is totally submitted in one cassette. F - Received in fixative is one container labeled with the patient's name and designated sigmoid polyp. The specimen consists of multiple irregular fragments of light carias soft tissue mixed with fecal material that in aggregate measure 0.5 x 0.5 x 0.1 cm. The specimen is totally submitted in one cassette. / SJ:rg 03/14/2021 TC:0 CPT: 69881 x6
--- NOTE | 2021-03-13 | IMM_PTH ---
PATIENT: SANDY DAVIDSON LOC: EN U#:[id number] AGE/SX: 50/F ROOM: RE03/13/[address]: Dr. Mathew Peña DO : 1970 BED: DIS: 03/13/2021 SPEC #: [id number] RECD: 03/15/21 12:41 STATUS: MONICA REWillard #: [id number] BRADY: 03/13/21 00:[address]: Mathew Peña DEPT: IMMUNOHISTOCHEMISTRY RECD BY: Nemesio Boone ENTERED: 03/15/21 12:42 SP TYPE: IMMUNO OTHR DR: Dr. Ron Gutierrez MD Tissues: COLON BIOPSY Procedures: MLH-1 (add) MSH6 (add) Anti-PMS2 (add) BENITEZ-2 (add) HER2 JOHN (add) KI-67 (add) P53 (add) MSH2 (initial) PHYSICIAN & INSTITUTION [address] [address] SPECIMEN INFORMATION: Tissue Source: Hepatic flexure mass, biopsy Clinical Info: Screening Specimen Number: [id number] CPT code: 28894, 50698 x7 METHODOLOGY: Deparaffinized sections of prefer/formalin-fixed tissue or PAP/DQ stained slides are incubated with monoclonal/polyclonal antibodies/oligonucleotide probes. Localization is made via biotin free immunoperoxidase method. Appropriate controls are performed and reacted as expected. Results on target cell population are indicated in the following table: RESULTS: ANTIBODY / CLONE RESULT COLON CANCER PROFILE (Prognostic Markers) Ki-67 (30-9) positive, high P53 (DO-7) positive BENITEZ-2 (SP21) positive MLH-1 (M1) positive MSH2 (25D12) positive MSH6 (44) positive PMS2 (SUN0121) positive Her-2neu (CB11) negative These tests were developed and their performance characteristics determined by [facility]. They may not have been cleared or approved by the U.S. Food and Drug Administration. The FDA has determined that such clearance or approval is not necessary. The above immunohistochemical/dualISH markers are ordered and reviewed by the Pathologist. INTERPRETATION: Hepatic flexure mass, biopsy: Invasive adenocarcinoma Result of Microsatellite Instability Study: Negative (no loss of mismatch protein; no microsatellite instability detected). SJ:lucy 03/17/21
[2021-03-13 10:06] VITALS: BP 121/93; PULSE 86; RESP 18; TEMP 36.1; O2SAT 100; BMI 30.2
--- NOTE | 2021-03-13 10:14 | PCM.HP.BLA ---
History and Physical Date of Admission: 03/13/21 History of Present Illness Kelly is a very pleasant 50-year-old is here for screening colonoscopy. She has never had a colonoscopy in the past. She is not having abdominal pain. She not have any cramping. She is not having bleeding per rectum. She is not nausea. She has no family history of colon cancer or colon problems. Overall she is in very good health. Recent Illness/Hospitalization: No Past Medical History - Allergies and Home Meds Allergies/Adverse Reactions: Allergies No Known Allergies Allergy Primary Care Physician: Ron Gutierrez MD [Primary Care Provider] - Prior records reviewed: Yes Past Medical History: None Lives: Alone Smoking Status: Current every day smoker Drugs: None Review of Systems General: Denies: Chills, Fever, Malaise, Subjective, Sweats, Weight loss, - Cardiovascular: Denies: Chest pain, Palpitations, Heart racing, -, - Respiratory: Denies: Dyspnea, Cough, Sputum, Dyspnea on exertion, Orthopnea, Paroxysmal nocturnal dyspnea, -, - Gastrointestinal: Denies: Nausea, Vomiting Musculoskeletal: Reports: Extremity Pain - Localizes the pain from the right shoulder to the right elbow.. Denies: Myalgias, Arthralgias, Neck pain, Back pain Skin: Denies: Rash Neurological: Denies: Headache, Weakness, Parasthesia, Numbness, -, - Hematologic: Denies: Easy bruising, Easy bleeding Physical Exam Vital Signs/Narrative: Vital Signs Temp Pulse Resp BP Pulse Ox 97.8 F 80 18 121/79 H 100 Inital Vital Signs reviewed: Yes - Vital signs are unremarkable. General: Negative for: Well nourished, Well developed, Obese, Cachectic, Contractures, Unkempt, - Head: Normocephalic, Atraumatic Eyes: Perrl, EOMI. Negative for: Pale conjunctiva ENT: No Trauma, Moist Mucous Membranes Neck: Nontender, Full ROM. Negative for: Spinal Tenderness, Paraspinal Tenderness Cardiovascular: Regular rate, Regular rhythm, No murmurs, Normal S1, Normal S2 Respiratory: No distress, CTA bilaterally Back: Negative for: Spinal Tenderness, Paraspinal Tenderness Skin: Normal color, No rash. Negative for: Cyanosis, Jaundice, Rash Neurological: Alert, Oriented x3, Cranial nerves II-XII grossly intact, Normal Strength, Normal Sensation, Normal DTR - Biceps, brachialis and triceps reflexes are 3+ and symmetric. Axillary, median, radial and ulnar function intact. Psychological: - - Affect is flat. Assessment and plan: 50-year-old here for screening colonoscopy. She will undergo evaluation with screening colonoscopy. She was explained alternatives, risk, benefits including not withstanding bleeding, infection, sepsis, perforation, need for emergency or . She will have an ASA of 1.
[2021-03-13] MEDS: Lactated Ringers 1,000 ML 15 ML IV (10:20)
[2021-03-13 11:35] VITALS: BP 109/69; BP 121/93; PULSE 83; RESP 14; TEMP 36.1; O2SAT 97
[2021-03-13 11:40] VITALS: BP 112/71; BP 121/93; PULSE 71; RESP 16; O2SAT 99
--- NOTE | 2021-03-13 11:42 | OP.COLON_ITS ---
Patient Name: Kelly Flynn Procedure Date: 03/13/2021 10:55 AM Date of : 1970 Age: 50 Procedure: Colonoscopy Indications: Screening for colorectal malignant neoplasm Providers: Mathew Peña DO Medicines: See the Anesthesia note for documentation of the administered medications Patient Profile: This is a 50 year old female. Refer to note in patient chart for documentation of history and physical. Last Colonoscopy: none. The patient's first colonoscopy is today. Complications: No immediate complications. Procedure: Pre-Anesthesia Assessment: - Prior to the procedure, a History and Physical was performed, and patient medications and allergies were reviewed. The patient is competent. The risks and benefits of the procedure and the sedation options and risks were discussed with the patient. All questions were answered and informed consent was obtained. Patient identification and proposed procedure were verified by the physician in the pre-procedure area. Mental Status Examination: alert and oriented. Airway Examination: normal oropharyngeal airway and neck mobility. Respiratory Examination: clear to auscultation. CV Examination: normal. Prophylactic Antibiotics: The patient does not require prophylactic antibiotics. Prior Anticoagulants: The patient has taken no previous anticoagulant or antiplatelet agents. After reviewing the risks and benefits, the patient was deemed in satisfactory condition to undergo the procedure. The anesthesia plan was to use moderate sedation / analgesia (conscious sedation). Immediately prior to administration of medications, the patient was re-assessed for adequacy to receive sedatives. The heart rate, respiratory rate, oxygen saturations, blood pressure, adequacy of pulmonary ventilation, and response to care were monitored throughout the procedure. The physical status of the patient was re-assessed after the procedure. After I obtained informed consent, the scope was passed under direct vision. Throughout the procedure, the patient's blood pressure, pulse, and oxygen saturations were monitored continuously. The Colonoscope was introduced through the anus and advanced to the cecum, identified by appendiceal orifice and ileocecal valve. The ileocecal valve, appendiceal orifice, and rectum were photographed. Moderate Sedation: Moderate (conscious) sedation was administered by the endoscopy nurse and supervised by the endoscopist. The patient's oxygen saturation, heart rate, blood pressure and response to care were monitored. Total physician intraservice time was 15 minutes. Scope In: 11:06:00 AM Scope Withdrawal Time 0 hours 15 minutes 49 seconds Scope Out: 11:29:33 AM Total Procedure Duration Time 0 hours 23 minutes 33 seconds Findings: The perianal and digital rectal examinations were normal. Seven sessile polyps were found in the sigmoid colon, descending colon and hepatic flexure. The polyps were 1 to 2 mm in size. These polyps were removed with a hot snare. Resection and retrieval were complete. Verification of patient identification for the specimen was done. Estimated blood loss was minimal. Multiple small and large-mouthed diverticula were found in the sigmoid colon and descending colon. There was no evidence of diverticular bleeding. An infiltrative and ulcerated partially obstructing large mass was found at the splenic flexure. The mass was partially circumferential (involving one-half of the lumen circumference). The mass measured one cm in length. In addition, its diameter measured five mm. No bleeding was present. This was biopsied with a cold forceps for histology. Verification of patient identification for the specimen was done. Estimated blood loss was minimal. An ulcerated partially obstructing large mass was found at the splenic flexure. No bleeding was present. Area was tattooed with an injection of Anjana ink proximal and distal to the mass. A single medium-sized angiodysplastic lesion without bleeding was found in the cecum. Biopsies were taken with a cold forceps for histology. Verification of patient identification for the specimen was done. Estimated blood loss was minimal. There was a medium-sized lipoma, 19 mm in diameter, at the hepatic flexure. Impression: - Seven 1 to 2 mm polyps in the sigmoid colon, in the descending colon and at the hepatic flexure, removed with a hot snare. Resected and retrieved. - Diverticulosis in the sigmoid colon and in the descending colon. There was no evidence of diverticular bleeding. - Likely malignant partially obstructing tumor at the splenic flexure. Biopsied. - Likely malignant partially obstructing tumor at the splenic flexure. Tattooed. Recommendation: - Discharge patient to home. - Resume previous diet. - Continue present medications. - Await pathology results. - Repeat colonoscopy in 1 year for surveillance based on personal history of colon cancer. - Return to GI office in 2 weeks. Procedure Code(s): --- Professional --- 43128, Colonoscopy, flexible; with removal of tumor(s), polyp(s), or other lesion(s) by snare technique 87110, 59, Colonoscopy, flexible; with biopsy, single or multiple 72649, Colonoscopy, flexible; with directed submucosal injection(s), any substance G0500, Moderate sedation services provided by the same physician or other qualified health career resource specialist performing a gastrointestinal endoscopic service that sedation supports, requiring the presence of an independent trained observer to assist in the monitoring of the patient's level of consciousness and physiological status; initial 15 minutes of intra-service time; patient age 5 years or older (additional time may be reported with 06539, as appropriate) CPT copyright 2017 [employer]. All rights reserved. The codes documented in this report are preliminary and upon certified procedural coder review may be revised to meet current compliance requirements. Mathew Peña DO 03/13/2021 11:42:20 AM This report has been signed electronically. Number of Addenda: 1 Note Initiated On: 03/13/2021 10:55 AM Addendum Number: 1 Addendum Date: 12/22/2021 6:32:45 AM MAC was used instead of moderate sedation for this patient. Mathew Peña DO 12/22/2021 6:32:50 AM This report has been signed electronically.
[2021-03-13 11:45] VITALS: BP 118/74; BP 121/93; PULSE 68; RESP 16; O2SAT 100
[2021-03-13 11:50] VITALS: BP 121/93; BP 123/81; PULSE 64; RESP 16; TEMP 35.9; O2SAT 100
[2021-03-13 12:24] VITALS: BP 121/93
== END 2021-03-13 12:25 ==
LOC: EN 09:40 → AC 09:41
PROVIDERS: PCP Family Medicine; Referring Provider Internal Medicine Gastroenterology; Visit Provider Internal Medicine Gastroenterology
PROC: 0DJD8ZZ Inspection of Lower Intestinal Tract, Via Natural or Artificial Opening Endoscopic (ICD-10-PCS; CPT 45378; principal; 2021-03-13 10:55)
DX: Z12.11 Encounter for screening for malignant neoplasm of colon (principal); C18.3 Malignant neoplasm of hepatic flexure; D12.4 Benign neoplasm of descending colon; D12.3 Benign neoplasm of transverse colon; K63.5 Polyp of colon; K57.30 Diverticulosis of large intestine without perforation or abscess without bleeding; F17.200 Nicotine dependence, unspecified, uncomplicated
CPT/HCPCS: 45380; 45381; 45385; 87426; 88305; 88341; 88342; C9803; J7120; A4648; J2405

== ENCOUNTER → 2021-03-27 16:28 | Outpatient (CLI) | payer OTHER, SELFPAY ==
[2021-03-29 09:32] LABS: Carcinoembryonic Antigen 4.5 ng/mL (0.0-4.7)
== END ==
PROVIDERS: PCP Family Medicine; Visit Provider Surgery
DX: C18.9 Malignant neoplasm of colon, unspecified (principal)
CPT/HCPCS: 36415; 82378

== ENCOUNTER → 2021-03-28 13:19 | Outpatient (CLI) | payer OTHER, SELFPAY ==
--- NOTE | 2021-03-28 13:22 | CT_ITS ---
STUDY: CT CHEST, ABDOMEN T PELVIS WITH CONTRAST REASON FOR EXAM: Female, 50 years old. Colon cancer-new diagnosis RADIATION DOSAGE (If Supplied By Facility): CTDIvol = ( 18.62 ) mGy, DLP = ( 1264.39 ) mGycm TECHNIQUE: Transaxial imaging was performed following intravenous administration of Oral and amp; IV Readi-CAT and amp; 100mL Isovue-300. Individualized dose optimization techniques were used for this CT. COMPARISON: No relevant priors. FINDINGS: CHEST Small benign-appearing bilateral axillary lymph nodes. The lungs are normal. There is no demonstrated pleural abnormality. There are calcifications of the coronary arteries. Normal mediastinum. Normal hilar regions. Normal unenhanced pulmonary arteries. Normal aorta arch and descending thoracic aorta. There are multi-level degenerative changes of the thoracic spine. There is no demonstrated abnormality of the visualized upper abdomen. ABDOMEN The visualized lung bases are unremarkable. The visualized portions of the heart are within normal limits. Normal liver. Normal gallbladder and extrahepatic biliary system. Normal spleen. Normal pancreas. Normal bilateral adrenal glands. Normal right kidney. Normal left kidney. Normal visualized stomach. Normal small intestine. Moderate amount of fecal material is seen in the colon. The patient is status post appendectomy. There is diffuse atherosclerotic calcification of the abdominal aorta, without a demonstrated aneurysm. Normal inferior vena cava. There is borderline retroperitoneal lymphadenopathy with enlarged nodes no greater than 10mm in the short axis diameter. Normal abdominal wall. PELVIS Normal urinary bladder. There is a 3.8 cm x 2.7 cm complex cyst left ovary. Correlation with ultrasound is recommended. The patient is status post hysterectomy. Normal visualized small intestine. Normal visualized colon. There is no pelvic fluid. There is no pelvic lymphadenopathy or mass lesion. Normal visualized pelvic arteries. Normal abdominal wall. There are mild degenerative changes of the visualized lumbar spine. CT/CT Chest, Abd, Pel w/Contrast IMPRESSION: Complex cyst in the left ovary. Correlation with ultrasound is recommended. Moderate amount of fecal material is seen in the colon. Electronically Signed: Jeremy Santana MD at 9:25 EST , Service support ,
== END ==
PROVIDERS: PCP Family Medicine; Referring Provider Surgery; Visit Provider Surgery
DX: C18.9 Malignant neoplasm of colon, unspecified (principal)
CPT/HCPCS: 71260; 74177; Q9967

== ENCOUNTER → 2021-04-03 11:25 | Outpatient (CLI) | payer OTHER, SELFPAY ==
--- NOTE | 2021-04-03 11:32 | US_ITS ---
STUDY: ULTRASOUND OF THE FEMALE PELVIS - COMPLETE REASON FOR EXAM: Female, 50 years old. Complex left ovarian cyst LMP: The patient is status post hysterectomy. TECHNIQUE: Transabdominal and Transvaginal TECHNICAL QUALITY: Adequate. COMPARISON: None. FINDINGS: The patient is status post hysterectomy. The right ovary is visualized. The right ovary measures 2.4 cm x 2.4 cm x 1.9 cm. There is no right ovarian cyst or ovarian mass. There is no visualized right adnexal mass or complex lesion. There is normal arterial and normal venous vascularity. The left ovary is visualized. The left ovary measures 4 cm x 3.3 cm x 2.9 cm. There is a 3 cm x 2.3 cm x 2.2 cm left ovarian cyst. There is no visualized left adnexal mass or complex lesion. There is normal arterial and normal venous vascularity. There is no fluid in the cul-de-sac. The pre void volume of the bladder was 92 ml. US/Pelvic (Non ) IMPRESSION: Status post hysterectomy. 3 cm x 2.3 cm x 2.2 cm left ovarian cyst. Electronically Signed: Jeremy Santana MD at 15:42 EST , Service support ,
--- NOTE | 2021-04-03 11:32 | US_ITS ---
STUDY: THYROID ULTRASOUND REASON FOR EXAM: Female, 50 years old. Left lobe of the thyroid gland larger and firmer than contralateral side. TECHNIQUE: Ultrasound evaluation of the thyroid was performed with real-time and static coffey-scale imaging. COMPARISON: None. FINDINGS: RIGHT LOBE: The right lobe of the thyroid gland measures 4.1 x 1.4 x 1.9 cm. There is a homogeneous echotexture. Complex cystic superior pole nodules measuring 0.5 x 0.4 x 0.4 cm and 0.5 x 0.4 x 0.3 cm. Superior pole cyst measuring 0.4 x 0.4 x 0.2 cm. LEFT LOBE: The left lobe of the thyroid gland measures 4.1 x 1.2 x 1.4 cm. There is a homogeneous echotexture. Solid nodules superior pole measuring 0.7 x 0.5 x 0.3 cm, superior pole 0.7 x 0.5 x 0.6 cm with ill-defined borders and containing internal calcifications and a superior pole cyst measuring 0.8 x 0.7 x 0.4 cm. ISTHMUS: The isthmus measures 3 mm . The regional lymph nodes are normal. US/Thyroid IMPRESSION: Thyroid gland is not enlarged. Multiple solid and cystic nodules bilaterally. Superior pole nodule measuring 0.7 cm left lobe with ill-defined borders containing internal calcifications. Consider biopsy. Electronically Signed: Elio Garcia MD at 4:37 EST , Service support ,
--- NOTE | 2021-04-03 11:32 | US_ITS ---
STUDY: ULTRASOUND OF THE FEMALE PELVIS - COMPLETE REASON FOR EXAM: Female, 50 years old. Complex left ovarian cyst LMP: The patient is status post hysterectomy. TECHNIQUE: Transabdominal and Transvaginal TECHNICAL QUALITY: Adequate. COMPARISON: None. FINDINGS: The patient is status post hysterectomy. The right ovary is visualized. The right ovary measures 2.4 cm x 2.4 cm x 1.9 cm. There is no right ovarian cyst or ovarian mass. There is no visualized right adnexal mass or complex lesion. There is normal arterial and normal venous vascularity. The left ovary is visualized. The left ovary measures 4 cm x 3.3 cm x 2.9 cm. There is a 3 cm x 2.3 cm x 2.2 cm left ovarian cyst. There is no visualized left adnexal mass or complex lesion. There is normal arterial and normal venous vascularity. There is no fluid in the cul-de-sac. The pre void volume of the bladder was 92 ml. US/Transvaginal Non- IMPRESSION: Status post hysterectomy. 3 cm x 2.3 cm x 2.2 cm left ovarian cyst. Electronically Signed: Jeremy Santana MD at 15:42 EST , Service support ,
== END ==
PROVIDERS: PCP Family Medicine; Referring Provider Surgery; Visit Provider Surgery
DX: E07.9 Disorder of thyroid, unspecified (principal); N83.202 Unspecified ovarian cyst, left side
CPT/HCPCS: 76536; 76830; 76856

== ENCOUNTER 2021-04-05 05:46 | Inpatient (IN) | payer OTHER, SELFPAY ==
--- NOTE | 2021-04-04 11:11 | EKG12_ITS ---
Test Reason : PREOP Blood Pressure : / mmHG Vent. Rate : 076 BPM Atrial Rate : 076 BPM P-R Int : 176 ms QRS Dur : 070 ms QT Int : 366 ms P-R-T Axes : 054 001 050 degrees QTc Int : 411 ms Normal sinus rhythm Normal ECG Confirmed by HAWA HURD, ANNA ([id number]), newspaper or periodical editor PIPPA CERON ([id number]) on 04/05/2021 12:16:37 PM Referred By: Cheo Tamayo Confirmed By:ANNA SHAIKH MD
[2021-04-04 12:07] LABS: Hematocrit 41.5 % (37-47); Hemoglobin 13.8 g/dL (12.0-15.0); Mean Corp Hgb Conc 33.3 g/dL (32-36); Mean Corpuscular Hgb 30.2 pg (27.0-32.0); Mean Corpuscular Volume 90.8 fL (81-99); Mean Platelet Vol. 10.2 fl (6.2-12.0); Platelet Count 338 K/mm3 (150-450); RBC Distribution Width CV 13.9 % (11.6-14.6); RBC Distribution Width SD 46.1 fl (35.1-43.9); Red Blood Count 4.57 M/mm3 (4.2-5.4)
[2021-04-04 12:22] LABS: Prothrombin Time (Protime)PT. 12.2 SECONDS (11.7-14.9)
[2021-04-04 12:23] LABS: Partial Thromboplast Time 32.4 Seconds (24.1-36.2)
[2021-04-04 12:32] LABS: Anion Gap 4 (5-15); BUN 9 mg/dL (7-18); BUN/Creat Ratio 10.9 RATIO (10-20); Calcium,Total 9.3 mg/dL (8.5-10.1); Chloride 109 mmol/L (98-107); Creatinine, Serum 0.83 mg/dL (0.55-1.02); EST Glomerular Filtration Rate 77 mL/min (>60); Est Glom Filt Rate - Afr Amer 93 mL/min (>60); Glucose 102 mg/dL (74-106); Magnesium 2.3 mg/dL (1.6-2.6); Potassium 3.8 mmol/L (3.5-5.1); Sodium Level 140 mmol/L (136-145)
[2021-04-05] VITALS (14 sets, daily range): BP systolic 94–137; BP diastolic 65–84; PULSE 70–98; RESP 16–18; TEMP 35.7–37; O2SAT 93–100; BMI 29.8
[2021-04-05] MEDS: Acetaminophen 500 MG Tablet 1000 MG PO ×3 (06:49→21:40)
[2021-04-05] MEDS: Gabapentin 600 MG Tablet PO (06:49)
[2021-04-05] MEDS: Lactated Ringers 1,000 ML 40 ML IV ×2 (06:50→14:37)
[2021-04-05 07:00] LABS: Bedside Glucose 103 mg/dL (70-110)
--- NOTE | 2021-04-05 07:24 | PCM.HP.BLA ---
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: No Is patient in pain?: Yes (right side abdominal pain) Allergies No Known Allergies Allergy (Verified 03/27/21 15:01) Medications bisacodyl 5 mg tablet,delayed release 5 mg PO ONCE #4 tab 03/08/21 [Rx Confirmed 03/27/21] polyethylene glycol 3350 17 gram/dose oral powder 17 g PO DAILY #238 g 03/08/21 [Rx Confirmed 03/27/21] metronidazole 500 mg tablet 500 mg PO .COMPLEX #6 tab 03/27/21 [Rx Confirmed 03/27/21] neomycin 500 mg tablet 500 mg PO .COMPLEX #6 tab 03/27/21 [Rx Confirmed 03/27/21] PFSH Medical History Alcohol use Arthritis Dietary restriction Easy bruising Heartburn Leg cramps Marijuana use Shortness of breath on exertion Smoker Wears dentures Wears partial dentures Surgical History History of History of partial hysterectomy Hx of appendectomy Social History Smoking Status: Current every day smoker tobacco type: cigarettes HPI HPI HPI: SANDY FLYNN, is a 50 F who presents to the office today with her daughter for newly?diagnosed splenic flexure colon mass. Patient presents on referral from Dr. Peña of gastroenterology. He states that for the past 2 to 3 years she has experienced right upper quadrant pain and made these complaints to her primary care physician. Pain became particularly severe in 2019, however, this was followed up with an right upper quadrant ultrasound on 02/03/2020 that was within normal limits and did not demonstrate even gallstones. Given her age, her primary care physician suggested she might obtain a colonoscopy as a means of for filling her maintenance health requirement but also working of this right upper quadrant pain. This was the patient's first colonoscopy. At the time of the colonoscopy 7 semisessile polyps were removed and 1/8 lesion at the splenic flexure was identified as a likely cancer. This was a partially obstructing semicircumferential lesion that was biopsied and tattooed. 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 Patient states that her right upper quadrant pain gradually improved from last year. However, there is still some lingering sharp discomfort. She notes occasional bloating. She also notes occasional nausea particularly in the evenings as she lies down to sleep. Pain seems to originate in the right upper quadrant and then radiate inferiorly. Patient describes her bowel movements as generally loose in consistency. She experiences 1 bowel movement daily, but finds it distressing that she has to return to the bathroom multiple times throughout the day for incontinence episodes where she is wiping thin stool from her bottom after having left the bathroom previously (she describes this as almost like she had wiped completely when she confirms she did). She denies any history of constipation. She denies any bloody or dark stools. She has no history of hemorrhoids. She did have 3 childbirths but they were all via section. Patient has an erratic diet and only eats roughly once a day. Despite this, she has not noticed any weight loss but has experienced a weight gain of approximately 50 pounds in the last 2 to 3 years. Patient is a 1 pack/day smoker. She states that she previously stopped smoking with the help of Chantix but then experienced more psychosocial stressors in her life that led her to resume this habit. Patient has no known family history for colon cancer, diverticulitis, or IBD. However, she remarks of numerous other cancer diagnoses in her family history. She states that her mother succumbed to a glioblastoma and her father of prostate cancer. Is a maternal grandfather had lung cancer, a sister had kidney cancer, and her daughter had abnormal cervical cytology. Pertinent surgical history includes: C-sections x3, partial hysterectomy, open appendectomy ROS General General: Yes weight change, appetite, fatigue and colon cancer; No breast cancer or weakness HEENT HEENT: No difficulty swallowing, eye injury, eye surgery, swollen glands or hoarseness Endo Endocrine: No thyroid disease, diabetes mellitus, thyroid cancer, Hair loss, heat intolerance or cold intolerance Skin Skin: No rash or changing moles Breast Breast: No left breast lump, right breast lump, nipple discharge, breast pain, abnormal mammogram, abnormal US or breast enlargement Musc Musculoskeletal: No back problems, arthritis, rheumatoid arthritis, gout or joint pain Cardio Cardiovascular: No murmur, pacemaker, heart disease, atrial fibrillation, high blood pressure, heart attack, heart stent, palpitations, shortness of breat with exertion or chest pain Psych Psychiatric: No depression, anxiety or hearing voices Resp Respiratory: No shortness of breath, No sleep apnea, No cough, No COPD, No asthma, No emphysema and No wheezing Gastro Gastrointestinal: No abdominal pain, Yes nausea or vomiting, No diarrhea, No constipation, No blood in stool, No acid reflux, No hemorrhoids, No ulcers, No gallbladder problem and No black,tarry stools Pepe Hematologic: No blood thinners, No blood disorders, No bleeding, No anemia and No blood clots Neuro Neurologic: No system reviewed and no additional complaints, except as documented, No as per HPI, No abnormal gait, No abnormal hearing, No abnormal movements, No abnormal speech, No behavioral changes, No burning sensations, No confusion, No convulsions, No disequilibrium, No dizziness, No localized weakness, No frequent falls, No headache(s), No lack of coordination, No loss of vision, No memory loss, No numbness, No other visual disturbances, No radicular pain, No restless legs, No sensory deficit, No syncope, No tingling, No tremor(s), No weakness and No other Exam Const General: cooperative, healthy appearing, no acute distress and anxious Nutritional Appearance: overweight Resp Effort & Inspection: normal respiratory effort Auscultation: no rales, no rhonchi and no wheezes Cardio Rate: regular rate Rhythm: regular rhythm Heart Sounds: S1 normal and S2 normal GI Inspection: normal to inspection, non-distended, obesity and scar (Right lower quadrant McBurney's) Palpation: soft, no hernias and tender in the RLQ and in the RUQ Assessment and Plan Assessment and Plan (1) Colon cancer: Status: Acute Comment: This is a 50-year-old female who underwent recent diagnostic colonoscopy for symptoms of right upper quadrant pain but also secondary to her age. During this endoscopy session she is found to have numerous colonic polyps but also a splenic flexure mass that was consistent with invasive adenocarcinoma on final pathology. Final pathology was labeled hepatic flexure mass but I have confirmed with patient's motion picture camera operator that this mass was indeed found at 50 cm from the anal verge. Patient does not appear to have any symptoms related to this mass and, furthermore, her hemoglobin is within normal limits. Does describe a chronic incontinence of stool and her right upper quadrant pain remains undifferentiated as right upper quadrant ultrasounds x2 have been normal. I discussed, at length, with patient and her daughter the procedure to include a laparoscopic, extended left hemicolectomy with primary stapled anastomosis. I shared with them my concerns for postoperative incontinence issues actually being worse secondary to the surgery. I also shared with Mrs. Flynn my concerns for her smoking habit with our anastomosis. She and her daughter expressed understanding of these issues and both are eager to see Mrs. Flynn treated as expediently as possible. Mrs. Flynn is adamant that she would not like a colostomy but would be willing to consent to the surgery if there were a minor risk of this occurring. We did review the staging of colon cancer and I shared with them that we would not know her final stage until postoperative path is defined as well as first staging imaging are complete. He has not yet obtained CT of the chest abdomen pelvis or CEA. Both of these will be pending following today's visit. Orders: Orders: Carcinoembryonic Antigen Today Dr. Cheo Tamayo MD Plan - Dr. Cheo Tamayo MD: ?CT of the chest abdomen pelvis ?CEA ?2-day bowel prep with Iressa enrollment ?Patient's operative date to be finalized based on mutual availability but planning for a laparoscopic extended left hemicolectomy with primary stapled anastomosis and TAPS block Plan Details Other Medications: New: neomycin Take two (2) 500 mg tablets PO at 1300, 1500, 2300 6 tabs 0RF pre-op antibiotics Myriam ACOSTA PA-C metronidazole 500 mg PO Take 2 (two) tablets at 1300, 1500, 2300 6 tabs 0RF Myriam ACOSTA PA-C Other Orders: Orders: CT Chest, Abd, Pel w/Contrast Today Dr. Cheo Tamayo MD I have examined the patient the following changes are noted: Patient completed staging CT of the chest abdomen pelvis without remarkable findings aside from left ovarian cyst which was followed up with pelvic and transvaginal ultrasounds. She confirms that she did successfully complete her prep. Neither she nor her have any remaining questions and concerns were confirmed. Plan to proceed with laparoscopic left hemicolectomy for confirmed splenic flexure cancer.
--- NOTE | 2021-04-05 07:35 | COL._PTH ---
PATIENT: SANDY DAVIDSON LOC: MS2 U#:[id number] AGE/SX: 50/F ROOM: [facility] [place] RE04/05/[address]: Dr. Cheo Tamayo MD : 1970 BED: 1 DIS: 04/08/2021 SPEC #: [id number] RECD: 04/05/21 13:23 STATUS: MONICA MAGALLANES #: [id number] BRADY: 04/05/21 07:[address]: Cheo Tamayo DEPT: SURGICAL PATHOLOGY RECD BY: Nemesio Boone ENTERED: 04/05/21 14:59 SP TYPE: COLON OTHR DR: Dr. Ron Gutierrez MD Tissues: Colon, NOS Procedures: Surgery Specimen Level HEADER OPERATION: Laparoscopic right hemicolectomy PRE-OP DIAGNOSIS: Colon cancer TISSUE SUBMITTED: Right colon MICROSCOPIC DIAGNOSIS Right colon, right hemicolectomy: Invasive moderately differentiated adenocarcinoma. See cancer checklist below. AM:sunil 04/07/2021 COMMENT COLON CANCER SUMMARY Procedure: Right hemicolectomy Tumor site: Right colon Tumor size: 3.5 x 3 x 1 cm Macroscopic tumor perforation: Not identified Histologic type: Adenocarcinoma Histologic grade: G2 (moderately differentiated) Tumor extension: Tumor invades through muscularis propria and into subserosal fat. Margins: All margins are uninvolved by invasive carcinoma. Margins examined: Proximal, distal and serosal Treatment effect: Unknown Lymphvascular invasion: Not identified Perineural invasion: Not identified Tumor deposits: Not identified Regional lymph nodes: 17 of 17 lymph nodes negative for metastatic carcinoma. Ancillary studies: See previous microsatellite instability study by IHC ([id number]) for complete details. Negative (no loss of mismatch protein; no microsatellite instability detected). Additional pathologic findings: Hyperplastic polyp, tubular adenomas and mucosal lipoma. PATHOLOGIC STAGE: T3 N0 Mx The above summary is in compliance with [employer] (CAP) Cancer Protocols Checklist and [place] Joint Committee on Cancer (AJCC), Staging Manual, 8th Ed. Reference is made to the patient's previous colonic mass at hepatic flexure, biopsy ([id number]) in which invasive moderately differentiated adenocarcinoma was identified. MICROSCOPIC DESCRIPTION Slides are reviewed. GROSS DESCRIPTION Received in fixative is one container labeled with the patient's name and designated right hemicolectomy. The specimen consists of a right hemicolectomy consisting of 11 cm of small bowel and attached 27.5 cm of large bowel. An appendix is not present. Located 4.5 cm from the distal margin of resection is a fungating ulcerated mass measuring 3.5 x 3 x 1 cm. The mass occupies approximately 50% of the circumference of the bowel. The serosal surface in the area of the mass is inked in black ink. The remainder of the small bowel mucosa and ileocecal valve is grossly unremarkable. The large bowel contains three small mucosal polyps averaging 8 mm each and one larger yellow polyp measuring 1.5 cm and located 5 cm distal to the ileocecal valve. Serial sections of the mass reveal possible involvement of underlying fibrofatty tissue. The attached fibrofatty tissue contains several small lymph nodes. The mesenteric portion does not contain mass lesions. [employer] sections are submitted as follows: 1??mucosal margins of excision, 2 - small large bowel polyps, 3 - largest large bowel polyp, bisected, 4??uninvolved small and large bowel, 5 - ileocecal valve, 6 - tumor. / AM:sunil 04/06/21 TC:0 CPT: 92551
[2021-04-05] MEDS: BUPIVACAINE LIPOSOME/PF 20 ML VIAL OPERA.SITE (11:33)
[2021-04-05] MEDS: 0.9% Normal Saline (Pres. free 10 ML Vial (11:34)
[2021-04-05] MEDS: Bupivacaine 0.25% 30 ML Vial (11:34)
[2021-04-05] MEDS: Lactated Ringers 1,000 ML 75 ML IV (12:05)
--- NOTE | 2021-04-05 12:05 | PCM.OPRPT ---
Report of Operation Date of Procedure: 04/05/21 Pre-Operative Diagnosis: Splenic flexure colon cancer Post-Operative Diagnosis: Mid transverse colon cancer Surgery/Procedure Performed:: Hand-assisted laparoscopic right hemicolectomy Description of Surgical Findings:: ?Tattooing in the mid transverse colon ?Heavy, thick omentum ?Dense adhesions between the right lateral sidewall and the small bowel/cecum ?Grossly normal liver and gallbladder Surgeon: Cheo Tamayo small business director: Robbin Melara small business director: Shena Dominguez Type of Anesthesia: General/Supplemental Anesthesiologist: Roel Cho Special Medications: Mixture of liposomal bupivacaine, bupivacaine, and sterile saline Specimen's removed: Right colon Drains: NA Estimated Blood Loss (mL): 100 Description of Procedure: After appropriate identification in the preoperative holding area and confirmation of consents, patient was brought to the operating room. There she was positioned supine on the operating room table. Preoperative antibiotics were completed and the patient was induced with a general endotracheal anesthetic. A James catheter was placed for accurate intake and output monitoring both during the case and postoperatively. Patient was positioned in yellowfin leg holders taking care to pad pressure points. The abdomen was then prepped and draped in usual sterile fashion. Formal timeout was conducted to confirm patient and the procedure. Procedure was begun with a Blanco entry and a supraumbilical position. Here a 12 mm balloon Blanco trocar was placed and pneumoperitoneum was established at 15 mmHg. Under direct laparoscopic vision, a 5 mm trocar was placed in the right lower quadrant in the left upper quadrant. In this configuration, we were able to appreciate some adhesions between the patient's omentum and the anterior abdominal wall at an infraumbilical latitude. Using a combination of blunt dissection and LigaSure, these adhesions were taken down with care to avoid any underlying bowel. At this point we evaluated the patient's colon and found the colonic tattoos to reside within the mid transverse colon sweep. This was not the expected location per the endoscopist's report and the patient had previously been consented for a laparoscopic left hemicolectomy, but the position of the tattooing dictated that a extended right hemicolectomy was most appropriate for oncologic resection and this is what we therefore pursued. The gastrocolic ligament was carefully divided with the laparoscopic LigaSure device. We then opened the white line of Toldt in the right paracolic gutter and swept the ascending colon medially. As we approached the cecum and ileocolic junction, we appreciated dense adhesions between both the cecum and the small bowel with the right lateral abdominal wall. Here, sharp dissection was used to lyse these adhesions and medialized the bowel from the abdominal wall. We attempted to place the ileocolic pedicle on tension, however, there were persistent adhesions along the pelvic sidewall with the ileum and therefore we made the decision to proceed with a hand-assisted approach. Our supraumbilical incision was extended cephalad for approximately 7 cm. A medium?size wound protector was placed through this opening in the abdominal wall, and a GelPort was connected. Once the abdomen was reinsufflated, blunt dissection was used to free the few remaining attachments around the hepatic flexure and confirm the position of the underlying duodenum. During the division of these attachments, it proved necessary to place a second 5 mm port in the left upper quadrant. This was accomplished under laparoscopic vision. As we addressed the adhesions in the right lower quadrant it became apparent that we required a right upper quadrant port as well and this too was placed under laparoscopic vision as a 5 mm trocar. Once we had achieved mobility of the colon away from the retroperitoneum, I then placed the ileocolic pedicle on traction. I then opened the peritoneum over the ileocolic pedicle and attempted to isolate the vessel. Unfortunately patient's mesocolon was quite thick and palpation of the arterial pulse proved difficult. Once the vessel had been isolated, two 5 mm clips were placed across it and it was divided distally with LigaSure. This mesocolic window was then further opened in a cephalad direction taking care to stay closer to the root of the mesentery. Once were satisfied with our mobilization, the bowel was then eviscerated through the midline hand assist incision. The LigaSure was used to divide the mesentery until it was just adjacent to the terminal ileum transection site. Distally we confirmed that we were well over 5 cm beyond the distal tattooing before transecting the mesentery in this location as well. The colon and small bowel, were sequentially divided with blue loads from the SAMANTHA stapler. Then our cut ends of distal transverse colon and terminal ileum were aligned for a [id number] anastomosis. A back wall of silk suture was placed at a 2 cm intervals. Then a enterotomy and colotomy were made near the staple lines and a anastomosis was formed from a third firing of the SAMANTHA stapler. The common opening was closed with a TX stapling and the anastomosis was palpated and found to be wide open. This latter staple line was imbricated with a running 3-0 silk. The mesenteric defect was closed with a second running 3-0 silk. Our anastomosis was then returned to the peritoneal cavity and the hand assist site was closed at the fascia with running #1 PDS suture in a bidirectional fashion and tied in the middle. Pneumoperitoneum was reestablished and a transversus abdominis plane block was performed under laparoscopic vision with 100 mL of liposomal bupivacaine diluted in an equal portion of bupivacaine and saline. The peritoneal cavity was then inspected for hemostasis and there was some slight oozing noted in the retroperitoneum inferior to the liver which was addressed with selective use of the LigaSure device. Once satisfied with this appearance, the pneumoperitoneum was evacuated. The skin of the supraumbilical incision and four 5 mm port site incisions are closed in a subcuticular fashion with 4-0 Monocryl. Steri's and OpSite dressings were applied as dressings. Patient was then awoken from her anesthetic and transferred to PACU for ongoing recovery. Complications None Admit VTE Documentation VTE Present on Admission: Yes VTE Mechan Device Prophylaxis: SCD's VTE Pharm Prophylaxis ordered?: No
[2021-04-05] MEDS: Gabapentin 100 MG Capsule PO (16:43)
[2021-04-05] MEDS: HYDROmorphone 0.5 MG/0.5 ML SYRINGE IV ×2 (16:44→21:30)
[2021-04-05] MEDS: oxyCODONE 5 MG Tablet PO (19:43)
[2021-04-05] MEDS: 0.9% Saline Lock 10 ML Syringe IV (21:29)
[2021-04-05] MEDS: Docusate Sodium 100 MG Capsule PO (21:40)
[2021-04-05] MEDS: Celecoxib 200 MG Capsule PO (21:40)
[2021-04-06] MEDS: oxyCODONE 5 MG Tablet PO (02:34)
[2021-04-06] MEDS: Lactated Ringers 1,000 ML 75 ML IV (02:35)
[2021-04-06 02:46] VITALS: BP 96/61; PULSE 75; RESP 16; TEMP 36.6; O2SAT 94
[2021-04-06 04:21] VITALS: BP 104/67; PULSE 69
[2021-04-06] MEDS: HYDROmorphone 0.5 MG/0.5 ML SYRINGE IV ×5 (04:22→22:49)
[2021-04-06] MEDS: Acetaminophen 500 MG Tablet 1000 MG PO ×4 (04:23→21:18)
[2021-04-06 07:43] LABS: Hematocrit 33.2 % (37-47); Mean Corp Hgb Conc 33.1 g/dL (32-36); Mean Corpuscular Hgb 30.1 pg (27.0-32.0); Mean Platelet Vol. 9.7 fl (6.2-12.0); Platelet Count 237 K/mm3 (150-450); RBC Distribution Width SD 47.5 fl (35.1-43.9); Red Blood Count 3.65 M/mm3 (4.2-5.4); White Blood Count 9.6 K/mm3 (4.4-11.0)
[2021-04-06 08:06] LABS: Anion Gap 4 (5-15); BUN 6 mg/dL (7-18); BUN/Creat Ratio 7.4 RATIO (10-20); Calcium,Total 8.2 mg/dL (8.5-10.1); Chloride 108 mmol/L (98-107); Creatinine, Serum 0.82 mg/dL (0.55-1.02); EST Glomerular Filtration Rate 78 mL/min (>60); Est Glom Filt Rate - Afr Amer 94 mL/min (>60); Estimated Creatinine Clearance 84.88 ml/min; Glucose 102 mg/dL (74-106); Magnesium 2.1 mg/dL (1.6-2.6); Potassium 3.9 mmol/L (3.5-5.1); Sodium Level 138 mmol/L (136-145)
--- NOTE | 2021-04-06 08:15 | PCM.PN.SRG ---
Subjective Subjective Seen and examined during AM rounds. She is found awake and resting in bed. She states that she is having some more postoperative discomfort. She rates this at a 7 out of 10. Still, she was up and about last evening in a chair. She states she feels a constant urge to urinate but does have a James catheter in. She had a fleeting feeling of nausea, but is generally very hungry and is eager to know when she can have food. Objective Data Objective Data Vital Signs: Vital Signs Temp Pulse Resp BP Pulse Ox 97.8 F 69 16 104/67 94 04/06/21 02:46 04/06/21 04:21 04/06/21 02:46 04/06/21 04:21 04/06/21 02:46 Oxygen Flow Rate (L/min) 1.5 Oxygen Delivery Method Room Air Weight: 147 lb 11.355 oz Body Mass Index (BMI) 29.8 Intake & Output: Intake and Output for Last 24 Hours 04/04/21 04/05/21 04/06/21 23:59 23:59 23:59 Intake Total 2504 / 2504 715.33 / 715.33 Output Total 1150 / 1150 750 / 750 Balance 1354 / 1354 -34.67 / -34.67 Lab / Micro Data Result Diagrams: 04/06/21 07:25 04/06/21 07:25 Labs: Laboratory Results - last 24 hr 04/06/21 07:25: WBC 9.6, RBC 3.65 L, Hgb 11.0 L, Hct 33.2 L, MCV 91.0, MCH 30.1, MCHC 33.1, RDW Std Deviation 47.5 H, RDW Coeff of Ya 14.0, Plt Count 237, MPV 9.7 04/06/21 07:25: Sodium 138, Potassium 3.9, Chloride 108 H, Carbon Dioxide 26.0, Anion Gap 4 L, BUN 6 L, Creatinine 0.82, Estim Creat Clear Calc 84.88, Est GFR (MDRD) Af Amer 94, Est GFR (MDRD) Non-Af 78, BUN/Creatinine Ratio 7.4 L, Glucose 102, Calcium 8.2 L, Magnesium 2.1 Physical Exam Const no apparent distress Resp normal respiratory effort GI GI Narrative: Incision site dressings are clean dry and intact. There is no abdominal distention. Patient's abdomen is soft and appropriately tender to palpation. Assessment & Plan Assessment/Plan (1) S/P laparoscopic colectomy: PLAN: Patient is postoperative day 1 from laparoscopic right hemicolectomy with primary ileocolostomy. She is doing well and overall has reasonable pain control. Labs are stable this morning. When asked the following plan: Neuro: Acetaminophen 4 times daily, Celebrex twice daily, as needed oxycodone, as needed Dilaudid Pulm/CV: 02 via nasal cannula as needed. Ambulate as tolerated. Incentive spirometry FEN/GI: Monitor daily electrolytes. KVO IV today. Add Ensure Enlive to clear liquid diet today. Stool softener. Heme/ID: Mild anemia postop per labs. No indication for antibiotics Endo: No acute issues Proph: SCDs. Add Lovenox 40 daily Dispo: Continue inpatient stay Charges/Coding Visit Charges Inpatient E&M: 59889 Subs Hosp L2
[2021-04-06 08:45] VITALS: BP 98/64; PULSE 65; RESP 18; TEMP 36.6; O2SAT 92
[2021-04-06] MEDS: Docusate Sodium 100 MG Capsule PO ×2 (09:32→21:18)
[2021-04-06] MEDS: Celecoxib 200 MG Capsule PO ×2 (09:32→21:18)
[2021-04-06] MEDS: Gabapentin 100 MG Capsule PO ×3 (09:32→17:58)
--- NOTE | 2021-04-06 09:38 | PCS.PANDOC ---
PANDEMIC DOCUMENTATION INITIATED: Date: 12/05/2020 Time: 190
[2021-04-06] MEDS: Ensure Clear 120 ML Liquid PO (09:40)
[2021-04-06] MEDS: Enoxaparin 40 MG/0.4 ML Syringe SC (09:41)
--- NOTE | 2021-04-06 11:30 | CASEMGMT ---
RN CM Face to Face with patient for initial transition planning/care coordination assessment. RN CM introduced self and role at [facility]. Patient lying in bed, alert and oriented. Patient willing to participate in assessment and is able to answer all questions appropriately. Care providers, pharmacy, and demographics verified. Patient wishes to discharge home, denies need for home health at this time. Patient states she has no further needs or concerns at this time. CM to follow for discharge planning needs that may arise. PCP: Ron Gutierrez Specialists: Belkis, surgeon; Friend, GI Preferred Pharmacy: [facility] retail Insurance: MMO Prescription Benefit: yes Living Will/HPOA: none LNOK: and daughter Living Arrangements: Patient lives with in a mobile home with 3-4 steps and railing to enter. Patient states she is independent at home. Transportation: self/ DME/HHC: Patient denies DME or previous HHC Disposition Plan: Patient to discharge home with family support and follow-up plans in place. Freida LUNSFORD, RN, CM
[2021-04-06 14:09] VITALS: BP 102/55; PULSE 72; RESP 18; TEMP 37.1; O2SAT 94
[2021-04-06] MEDS: 0.9% Saline Lock 10 ML Syringe IV ×2 (18:17→22:49)
[2021-04-06 21:08] VITALS: BP 122/71; PULSE 69; RESP 18; TEMP 36.6; O2SAT 97
[2021-04-06] MEDS: Ondansetron ODT 4 MG Tablet PO (21:18)
[2021-04-07 03:40] VITALS: BP 115/77; PULSE 70; RESP 18; TEMP 36.4; O2SAT 95
[2021-04-07] MEDS: Acetaminophen 500 MG Tablet 1000 MG PO (03:45)
[2021-04-07] MEDS: oxyCODONE 5 MG Tablet PO (03:45)
[2021-04-07] MEDS: HYDROmorphone 0.5 MG/0.5 ML SYRINGE IV (05:12)
--- NOTE | 2021-04-07 08:48 | PCM.PN.SRG ---
Subjective Subjective Patient is found resting in bed this morning. She states that she is having frequent nighttime awakenings because she feels as though she might pass gas but does not trust that she will not also have loose stool. To this end, she states she had 2 loose bowel movements overnight in addition to the diarrhea she had yesterday afternoon. She tolerated her incremental diet advance yesterday and continues to ask for food. She denies any nausea or vomiting. Her abdominal pain is somewhat improved this morning. Objective Data Objective Data Vital Signs: Vital Signs Temp Pulse Resp BP Pulse Ox 97.6 F L 70 18 115/77 95 04/07/21 03:40 04/07/21 03:40 04/07/21 03:40 04/07/21 03:40 04/07/21 03:40 Oxygen Flow Rate (L/min) 1.5 Oxygen Delivery Method Room Air Weight: 147 lb 11.355 oz Body Mass Index (BMI) 29.8 Intake & Output: Intake and Output for Last 24 Hours 04/05/21 04/06/21 04/07/21 23:59 23:59 23:59 Intake Total 2504 / 2504 1715.33 / 1715.33 Output Total 1150 / 1150 1850 / 1850 Balance 1354 / 1354 -134.67 / -134.67 Lab / Micro Data Result Diagrams: 04/06/21 07:25 04/06/21 07:25 Physical Exam Const no apparent distress Resp normal respiratory effort GI GI Narrative: Mildly distended, soft, appropriately tender?particularly about her midline extraction site. Dressings were initially clean dry and intact but I removed. There is some mild serosanguineous drainage from the superior aspect of her midline extraction site, otherwise appear unremarkable with Steri-Strips still intact Assessment & Plan Assessment/Plan (1) S/P laparoscopic colectomy: PLAN: Patient is postoperative day 2 from laparoscopic right hemicolectomy with primary ileocolostomy. She is doing well and overall has reasonable pain control. She is hoping to transition from oxycodone to hydrocodone today to see if this can be further improved. Neuro: Acetaminophen 4 times daily (decrease the dose to 500 mg given the addition of hydrocodone?acetaminophen), Celebrex twice daily, as needed hydrocodone?acetaminophen, as needed Dilaudid now discontinued Pulm/CV: 02 via nasal cannula as needed. Ambulate as tolerated. Incentive spirometry FEN/GI: Monitor daily electrolytes. KVO IV today. Soft diet. Ensure compact. Stool softener. Heme/ID: Mild anemia postop per labs 04/06/2021?without clinical evidence of ongoing blood loss. No indication for antibiotics Endo: No acute issues Proph: SCDs. Lovenox 40 daily Dispo: Continue inpatient stay, but patient may be eligible for discharge pending clinical update this afternoon Charges/Coding Visit Charges Inpatient E&M: 06134 Subs Hosp L2
[2021-04-07] MEDS: Enoxaparin 40 MG/0.4 ML Syringe SC (09:03)
[2021-04-07] MEDS: Celecoxib 200 MG Capsule PO ×2 (09:03→21:16)
[2021-04-07] MEDS: Acetaminophen 500 MG Tablet PO ×2 (09:03→21:07)
[2021-04-07] MEDS: Gabapentin 100 MG Capsule PO ×3 (09:03→16:24)
[2021-04-07] MEDS: Docusate Sodium 100 MG Capsule PO ×2 (09:03→21:02)
[2021-04-07 09:10] VITALS: BP 116/76; PULSE 67; RESP 16; TEMP 36.4; O2SAT 99
[2021-04-07 09:44] VITALS: O2SAT 99
[2021-04-07] MEDS: HYDROcodone Bitartrate/Apap 5/325 Tablet PO (12:01)
[2021-04-07 16:20] VITALS: BP 108/68; PULSE 73; RESP 16; TEMP 36.8; O2SAT 98
[2021-04-07] MEDS: oxyCODONE 5 MG Tablet 10 MG PO ×2 (16:24→22:39)
[2021-04-07 22:00] VITALS: BP 99/55; PULSE 68; RESP 16; TEMP 36.4; O2SAT 96
[2021-04-08 04:00] VITALS: BP 112/71; PULSE 63; RESP 16; TEMP 36.5; O2SAT 99
[2021-04-08] MEDS: Acetaminophen 500 MG Tablet PO ×2 (04:20→09:28)
[2021-04-08] MEDS: oxyCODONE 5 MG Tablet 10 MG PO (06:40)
[2021-04-08 07:50] VITALS: O2SAT 98
[2021-04-08] MEDS: Celecoxib 200 MG Capsule PO (09:28)
[2021-04-08] MEDS: Gabapentin 100 MG Capsule PO (09:28)
[2021-04-08] MEDS: Enoxaparin 40 MG/0.4 ML Syringe SC (09:29)
[2021-04-08] MEDS: Docusate Sodium 100 MG Capsule PO (09:29)
[2021-04-08 09:31] VITALS: BP 129/67; PULSE 70; RESP 16; TEMP 36.3; O2SAT 95
--- NOTE | 2021-04-08 09:58 | PCM.DC ---
Discharge Instructions Diet Discharge Diet: Soft diet (Fiber restricted) Activity Discharge Activity: May Not Drive (No driving while using narcotic pain medication) and May Shower (No baths) Lifting Restrictions: No lifting greater than 15 pounds for 4 weeks postop Dressing / Incision Call your doctor if your incision/area has: Sudden Increased Bleeding, Increased Pain/ Swelling, Increased Redness, Foul Smelling Discharge and Swelling at the incision site Call your doctor if you observe: Fever of 101 or Higher and Change in Color Change Dressing in: leave in place till F/U Cleanse incision/area with: Soap & Water Follow Up Care Please Follow Up With: Cheo Tamayo MD When: 1 week Test Results: Test results from this visit will be discussed in further detail at your follow-up appointment, if applicable. Discharge Plan Admission Admit Date/Time: 04/05/21 05:46 Primary Reason for Your Visit: Colectomy for colon cancer Attending Provider: Cheo Tamayo Primary Care Provider: Ron Gutierrez Instructions Patient Instructions: Recovering from Colorectal Surgery Discharge Orders/Prescriptions Prescriptions: New oxycodone 5 mg tablet 10 mg PO Q8H PRN (Reason: pain) 7 Days Qty: 20 RF: 0 Discontinued neomycin 500 mg tablet 500 mg PO .COMPLEX Qty: 6 RF: 0 metronidazole 500 mg tablet 500 mg PO .COMPLEX RF: 0 bisacodyl 5 mg tablet,delayed release (DR/EC) 5 mg PO ONCE RF: 0 polyethylene glycol 3350 [Miralax] 17 gram/dose powder 17 g PO DAILY RF: 0 Referrals / Follow Up: Ron Gutierrez MD [Primary Care Provider] -
--- NOTE | 2021-04-08 10:06 | PCM.DC.SUM ---
Providers Date of Admission: 04/05/21 Primary Care Physician: Dr. Ron Gutierrez MD Reason For Visit: LAP L CARLINE COLECTOMY Diagnosis Discharge Diagnosis (1) S/P laparoscopic colectomy: Status: Acute Code(s): Z90.49 - Acquired absence of other specified parts of digestive tract Medications at Discharge Home Medications oxycodone 10 mg PO Q8H PRN 7 Days #20 tab 04/08/21 Hospital Course Operations colectomy (Extended right hemicolectomy with primary anastomosis) Summary of Care Provided Hospital Course: On 04/05/2021 patient underwent laparoscopic, hand-assisted extended right hemicolectomy with primary anastomosis for diagnosis of colon cancer. She was admitted postoperatively for ongoing management. Given that she was enrolled in the ED rest protocol, she received immediate nutrition and tolerated this without issue. Therefore her diet was advanced on postoperative day 1 and she tolerated this as well. Laboratories were drawn the morning of postoperative day 1 and were found to be stable or expected with postop changes. By the morning of postoperative day 2 she was having regular loose stools and was still tolerating her diet advancement so she was again advanced now to a soft, low fiber diet. Additionally, all IV pain medication was stopped. She was evaluated the afternoon of postoperative day 2 and offered discharge to home, but she stated that her comfort level would be better with a discharge the following morning. This would allow her to be home and attend to any needs she may have. I found this to be reasonable and on the morning of hospital day 3, she confirmed ongoing tolerance of her diet, increased mobility with decreased pain, and was still experiencing regular bowel function. With these improvements and her home arrangement, hospital discharge was granted. I have requested postoperative follow-up in my office in 1 week post discharge. She was given instructions to remain on a soft diet for the first week after hospital stay to provide little mechanical stress at her new anastomosis. I have also ordered pain medication to our hospital pharmacy as the patient requested. Physical Exam Const alert and oriented x3 GI GI Narrative: Nondistended. Incision sites with Steri-Strips still intact. There is some curling of the Steri-Strips at the far left upper quadrant port site. There is no surrounding erythema or drainage from the incisions. Patient was appropriately tender to palpation about her incision sites but was soft with this palpation Weight / BMI Weight Weight: 147 lb 11.355 oz Body Mass Index (BMI) 29.8 ABG / Lab / Microbiology Data Result Diagrams: 04/06/21 07:25 04/06/21 07:25 D/C Instructions Discharge Diet: Soft diet (Fiber restricted) Call your doctor if your incision/area has: Sudden Increased Bleeding, Increased Pain/ Swelling, Increased Redness, Foul Smelling Discharge and Swelling at the incision site Call your doctor if you observe: Fever of 101 or Higher and Change in Color Cleanse incision/area with: Soap & Water Please Follow Up With: Cheo Tamayo MD When: 1 week Meaningful Use Info Meaningful Use Diagnoses (Choose all that apply): None applicable Discharge Plan Admission Admit Date/Time: 04/05/21 05:46 Primary Reason for Your Visit: Colectomy for colon cancer Attending Provider: Cheo Tamayo Primary Care Provider: Ron Gutierrez Instructions Patient Instructions: Recovering from Colorectal Surgery Discharge Orders/Prescriptions Prescriptions: New oxycodone 5 mg tablet 10 mg PO Q8H PRN (Reason: pain) 7 Days Qty: 20 RF: 0 Discontinued neomycin 500 mg tablet 500 mg PO .COMPLEX Qty: 6 RF: 0 metronidazole 500 mg tablet 500 mg PO .COMPLEX RF: 0 bisacodyl 5 mg tablet,delayed release (DR/EC) 5 mg PO ONCE RF: 0 polyethylene glycol 3350 [Miralax] 17 gram/dose powder 17 g PO DAILY RF: 0 Referrals / Follow Up: Ron Gutierrez MD [Primary Care Provider] - Disposition Discharge Orders: Discharge Patient (Routine); Ordered 04/08/21 Ordered By: Dr. Cheo Tamayo Charges/Coding Visit Charges Inpatient E&M: 04081 Disch Hosp
[2021-04-08 10:16] VITALS: BP 129/67; PULSE 70; RESP 16; TEMP 36.3; O2SAT 95
== END 2021-04-08 10:46 | disposition home or self-care (01) | DRG 331 ==
LOC: ACINP 14:45 → MS2 16:34
PROVIDERS: Anesthesiology; Admitting Provider Surgery; PCP Family Medicine; Referring Provider Surgery; Visit Provider Surgery
PROC: 0DTN0ZZ Resection of Sigmoid Colon, Open Approach (ICD-10-PCS; CPT 44204; principal; 2021-04-05 07:10)
DX: C18.4 Malignant neoplasm of transverse colon (principal); K66.0 Peritoneal adhesions (postprocedural) (postinfection); F17.210 Nicotine dependence, cigarettes, uncomplicated
CPT/HCPCS: 36415; 80048; 82962; 83735; 85027; 85610; 85730; 88309; 93005; 99406; J7120; A4216; J2405; J3490

== ENCOUNTER 2021-05-05 11:51 | Outpatient (CLI) | payer OTHER, SELFPAY ==
[2021-05-05 15:26] LABS: Absolute Lymphocyte Count 2.53 X10^3/uL (0.83-4.51); Absolute Neutrophil Count 8.5 X10^3/uL (2.0-7.7); Basophil# 0.05 X10^3/uL; Basophil% 0.4 % (0-1); Eosinophil# 0.37 X10^3/uL; Hematocrit 40.7 % (37-47); Hemoglobin 13.5 g/dL (12.0-15.0); Lymphocyte # 2.53 X10^3/ul (0.83-4.51); Lymphocyte % 20.7 % (19-41); Mean Corp Hgb Conc 33.2 g/dL (32-36); Mean Corpuscular Hgb 29.9 pg (27.0-32.0); Mean Corpuscular Volume 90.2 fL (81-99); Mean Platelet Vol. 10.6 fl (6.2-12.0); Monocyte# 0.66 X10^3/uL; Monocyte% 5.4 % (0-10); NRBC Flagged by Analyzer 0 % (0-5); Neutrophil # 8.49 X10^3/uL (2.7-7.7); Neutrophil % 69.7 % (47-70); Platelet Count 328 K/mm3 (150-450); RBC Distribution Width SD 46.4 fl (35.1-43.9); Red Blood Count 4.51 M/mm3 (4.2-5.4); White Blood Count 12.2 K/mm3 (4.4-11.0)
[2021-05-05 15:44] LABS: AST(SGOT) 18 U/L (15-37); Alanine Aminotransfer ALT/SGPT 42 U/L (13-56); Albumin, Serum 3.7 g/dL (3.2-5.0); Alkaline Phosphatase 124 U/L (45-117); Anion Gap 7 (5-15); BUN 10 mg/dL (7-18); BUN/Creat Ratio 15.1 RATIO (10-20); Calcium,Total 9.3 mg/dL (8.5-10.1); Chloride 105 mmol/L (98-107); Creatinine, Serum 0.66 mg/dL (0.55-1.02); EST Glomerular Filtration Rate 99 mL/min (>60); Est Glom Filt Rate - Afr Amer 120 mL/min (>60); Globulin 3.8 g/dL (2.2-4.2); Glucose 87 mg/dL (74-106); LDH 246 U/L (84-246); Potassium 3.8 mmol/L (3.5-5.1); Protein, Total 7.5 g/dL (6.4-8.2); Sodium Level 138 mmol/L (136-145)
[2021-05-07 13:04] LABS: Carcinoembryonic Antigen 3.5 ng/mL (0.0-4.7)
== END 2021-05-05 23:59 | disposition home or self-care (01) ==
LOC: MTLAB 11:53
PROVIDERS: PCP Family Medicine; Referring Provider Internal Medicine Medical Oncology; Visit Provider Internal Medicine Medical Oncology
DX: C18.9 Malignant neoplasm of colon, unspecified (principal)
CPT/HCPCS: 36415; 80053; 82378; 83615; 85025

== ENCOUNTER 2021-07-05 15:13 | Outpatient (CLI) | payer OTHER, SELFPAY ==
[2021-07-07 12:46] LABS: Carcinoembryonic Antigen 3.7 ng/mL (0.0-4.7)
== END 2021-07-05 23:59 | disposition home or self-care (01) ==
LOC: LAB 15:14
PROVIDERS: PCP Family Medicine; Visit Provider Surgery
DX: C18.3 Malignant neoplasm of hepatic flexure (principal)
CPT/HCPCS: 36415; 82378

== ENCOUNTER → 2021-10-13 | Outpatient (CLI) | payer OTHER, SELFPAY ==
--- NOTE | 2021-10-13 15:47 | CT_ITS ---
STUDY: CT CHEST, ABDOMEN T PELVIS WITH CONTRAST REASON FOR EXAM: Female, 51 years old. Follow up colon CA, post hemicolectomy RADIATION DOSAGE (If Supplied By Facility): CTDIvol = ( 12.36 ) mGy, DLP = ( 844.24 ) mGycm TECHNIQUE: Transaxial imaging was performed following intravenous administration of IV 100mL Isovue-300. Individualized dose optimization techniques were used for this CT. COMPARISON: 03/28/2021 FINDINGS: CHEST The lungs are normal. There is no demonstrated pleural abnormality. Normal heart and pericardium. Normal mediastinum. Normal hilar regions. Normal unenhanced pulmonary arteries. Normal aorta arch and descending thoracic aorta. Normal osseous structures. There is no demonstrated abnormality of the visualized upper abdomen. ABDOMEN The visualized lung bases are unremarkable. The visualized portions of the heart are within normal limits. Normal liver. Normal gallbladder and extrahepatic biliary system. Normal spleen. Normal pancreas. Normal bilateral adrenal glands. Normal right kidney. Normal left kidney. Normal visualized stomach. Normal small intestine. Status post right hemicolectomy. The appendix is visualized and appears normal. Normal abdominal aorta. Normal inferior vena cava. Normal retroperitoneum. Normal abdominal wall. Normal osseous structures. PELVIS Normal urinary bladder. Normal visualized small intestine. Normal visualized colon. There is no pelvic fluid. There is no pelvic lymphadenopathy or mass lesion. Normal visualized pelvic arteries. Normal abdominal wall. Normal osseous structures. CT/CT Chest, Abd, Pel w/Contrast IMPRESSION: No CT evidence of residual, recurrent, or metastatic colonic carcinoma. Electronically Signed: Billy Mosquera MD at 23:57 EDT ,
== END | disposition home or self-care (01) ==
LOC: CT 15:46
PROVIDERS: PCP Family Medicine; Referring Provider Surgery; Visit Provider Surgery
DX: C18.3 Malignant neoplasm of hepatic flexure (principal); Z90.49 Acquired absence of other specified parts of digestive tract
CPT/HCPCS: 71260; 74177; 82378; Q9967

== ENCOUNTER → 2022-02-16 | Outpatient (CLI) | payer OTHER, SELFPAY ==
[2022-02-17 09:44] LABS: Carcinoembryonic Antigen 4.4 ng/mL (0.0-4.7)
== END | disposition home or self-care (01) ==
LOC: LAB 11:17
PROVIDERS: PCP Family Medicine; Referring Provider Surgery; Visit Provider Surgery
DX: C18.3 Malignant neoplasm of hepatic flexure (principal)
CPT/HCPCS: 36415; 82378

== ENCOUNTER 2022-05-03 07:34 | Day surgery (SDC) | payer BC, SELFPAY ==
[2022-05-03] VITALS (7 sets, daily range): BP systolic 90–118; BP diastolic 56–88; PULSE 74–82; RESP 16; TEMP 36.1–36.9; O2SAT 97–100; BMI 28.5
[2022-05-03] MEDS: Lactated Ringers 1,000 ML 15 ML IV (08:10)
--- NOTE | 2022-05-03 08:30 | COLBX_PTH ---
PATIENT: SANDY DAVIDSON LOC: EN U#:[id number] AGE/SX: 52/F ROOM: RE05/03/[address]: Dr. Cheo Tamayo MD : 1970 BED: DIS: 05/03/2022 SPEC #: [id number] RECD: 05/03/22 13:22 STATUS: MONICA ELPIDIO #: [id number] BRADY: 05/03/22 08:[address]: Cheo Tamayo DEPT: SURGICAL PATHOLOGY RECD BY: Janae Bell ENTERED: 05/03/22 13:41 SP TYPE: COLON BX OTHR DR: Dr. Ron Gutierrez MD Tissues: A - Rectum, NOS B - COLON BIOPSY Procedures: Surgery Specimen Level IV HEADER OPERATION: Colonoscopy (MAC), biopsy PRE-OP DIAGNOSIS: Colon cancer TISSUE SUBMITTED: A ? Rectal polyp biopsy, B ? Polyp of anastomosis biopsy MICROSCOPIC DIAGNOSIS A. Rectal polyp, biopsy: Fragments of hyperplastic polyp. B. Polyp of anastomosis, biopsy: Hyperplastic polyp. SYD:sunil 05/04/2022 MICROSCOPIC DESCRIPTION Slides are reviewed. GROSS DESCRIPTION A - Received in fixative is one container labeled with the patient's name and designated rectal polyp biopsy. The specimen consists of multiple irregular fragments of light carias soft tissue that in aggregate measure 0.8 x 0.3 x 0.1 cm. The specimen is totally submitted in one cassette. B - Received in fixative is one container labeled with the patient's name and designated polyp of anastomosis biopsy. The specimen consists of one irregular fragment of light carias soft tissue that measures 0.3 x 0.3 x 0.1 cm. The specimen is totally submitted in one cassette. / SYD:sunil 05/03/2021 TC:1 CPT: 30767 x2
--- NOTE | 2022-05-03 08:37 | PCM.HP.BLA ---
History and Physical Date of Admission: 05/03/22 Date of Service:? 02/27/22 MR#: [id number] Acct: [id number] Name:SANDY VIVAR Rep #: [id number] : 1970 ? ? Provider: Dr. Cheo Tamayo MD Age/Sex:? 51/F ? ? Location: [facility] Status: Signed Intake Vital Signs ? 02/27/2215:12 Weight: 141 lb 6 oz Intake Visit Reasons:?DISCUSS LAB WORK Chief Complaint: discuss lab work Is patient in pain?: No Allergies No Known Allergies Allergy (Verified 02/27/22 15:12) Medications NK? 10/25/21 [History Confirmed 02/27/22] PFSH Medical History? Alcohol use Arthritis Cancer Dietary restriction Easy bruising Heartburn Left ovarian cyst Leg cramps Marijuana use Shortness of breath on exertion Smoker Wears dentures Wears partial dentures Surgical History? History of History of partial hysterectomy Hx of appendectomy Hx of colonoscopy S/P laparoscopic colectomy (~03/2021) Family History? Mother CancerFather Cancer Social History? Smoking Status:? Current every day smoker tobacco type: cigarettes HPI HPI HPI: SANDY DAVIDSON, is a 51 F who?presents to the office today for a standard surveillance visit status post a right hemicolectomy (OR date 04/05/2021) for colon cancer with final path T3 N0 M0.? Her last visit was 10/27/2021.? She denies any abdominal pain and states that things are going well for her.? She states her bowel movements occur at a frequency of 1-2 times per day and she reports that this is a big difference?and a positive difference since her surgery.? She denies any straining or constipation.? She denies any blood with her stools.? She denies any caliber change with her bowel movements.? She does confirm a weight loss of approximately 11 pounds over the last 1 year.? She states has not necessarily been intentional with dieting, but she has cut back on her eating and seems to be more active at work.? Speaking of cutting back, she reports that she is cut back on smoking and averaging 6 to 7 cigarettes/day, but is unable to fully cut out this habit. ROS General General: Yes weight change, appetite, fatigue and colon cancer; No breast cancer or weakness HEENT HEENT: No difficulty swallowing, eye injury, eye surgery, swollen glands or hoarseness Endo Endocrine: No thyroid disease, diabetes mellitus, thyroid cancer, Hair loss, heat intolerance or cold intolerance Skin Skin: No rash or changing moles Breast Breast: No left breast lump, right breast lump, nipple discharge, breast pain, abnormal mammogram, abnormal US or breast enlargement Musc Musculoskeletal: No back problems, arthritis, rheumatoid arthritis, gout or joint pain Cardio Cardiovascular: No murmur, pacemaker, heart disease, atrial fibrillation, high blood pressure, heart attack, heart stent, palpitations, shortness of breat with exertion or chest pain Psych Psychiatric: No depression, anxiety or hearing voices Resp Respiratory: No shortness of breath, No sleep apnea, No cough, No COPD, No asthma, No emphysema and No wheezing Gastro Gastrointestinal: No abdominal pain, Yes nausea or vomiting, No diarrhea, No constipation, No blood in stool, No acid reflux, No hemorrhoids, No ulcers, No gallbladder problem and No black,tarry stools Pepe Hematologic: No blood thinners, No blood disorders, No bleeding, No anemia and No blood clots Neuro Neurologic: No system reviewed and no additional complaints, except as documented, No as per HPI, No abnormal gait, No abnormal hearing, No abnormal movements, No abnormal speech, No behavioral changes, No burning sensations, No confusion, No convulsions, No disequilibrium, No dizziness, No localized weakness, No frequent falls, No headache(s), No lack of coordination, No loss of vision, No memory loss, No numbness, No other visual disturbances, No radicular pain, No restless legs, No sensory deficit, No syncope, No tingling, No tremor(s), No weakness and No other Exam Const General: cooperative, healthy appearing, comfortable and no acute distress Orientation: alert, awake and oriented x3 Other: Appears somewhat thinner than her last visit GI Other: Nondistended, well-healed midline laparotomy scar.? Soft and nontender to palpation x4 quadrants. Assessment and Plan Assessment and Plan (1) Colon cancer: ?Status:?Chronic ?Qualifiers: ?Colon location:?hepatic flexure? Qualified Code(s):?C18.3 - Malignant neoplasm of hepatic flexure ?Comment: Right colonic cancer at the hepatic flexure, status post right hemicolectomy on 04/05/2021.? Pathology showed invasive adenocarcinoma, tumor invades muscularis propria into the serosal fat,? 17 of 17 lymph nodes negative for carcinoma, T3 N0 M0-stage II.? CEA? 4.5 on 03/27/2021. Preoperative CT of the chest abdomen and pelvis 03/28/2021 was negative.? Patient's repeat CEA was 4.4 on 02/16/2022 from 4.9 on 10/31/2021 and 3.7 on 07/05/2021.? CT of the chest abdomen pelvis on 10/13/2021 is normal-no evidence of metastatic disease. Patient reports no interval concerns and has had a 11 pound weight loss over the last 1 year through increased activity and decreased p.o. intake.? I have shared with patient that part of her surveillance plan for her colon cancer diagnosis includes a surveillance colonoscopy at her 1 year anniversary of diagnosis.? Technically this makes the scope to 03/13/2022.? We will plan to reach out to gastroenterology and inquire whether they plan to perform this surveillance colonoscopy or whether he will be scheduled through this office.? Patient is provided prep instructions in the interim and asked to begin to pave the way for this procedure at work.? Additionally, patient was once again encouraged to seek smoking cessation and offered support. ?Plan: ? Inquire with gastroenterology to ensure that patient has a 1 year surveillance colonoscopy performed either later this month or early next month ? Plan for follow-up CEA and update H&P in another 3 months if the above is undertaken with gastroenterology I have examined the patient the following changes are noted: Patient confirms that she completed her bowel prep successfully and has not had any personal health changes, but some additional stress after she suddenly lost her son) and states this was the cause of her cancellation of her prior scope). She states that she is still grieving through this process. Given that her prep was completed successfully, we will not proceed for this make up surveillance colonoscopy given her personal history of colon cancer and need for surveillance per NCCN guidelines.
--- NOTE | 2022-05-03 09:27 | OP.COLON_ITS ---
Patient Name: Kelly Flynn Procedure Date: 05/03/2022 8:26 AM Date of : 1970 Age: 52 Procedure: Colonoscopy Indications: High risk colon cancer surveillance: Personal history of colon cancer Providers: Cheo Tamayo MD Medicines: See the Anesthesia note for documentation of the administered medications Patient Profile: Last Colonoscopy: 1 year ago. Complications: No immediate complications. Estimated blood loss: Minimal. Procedure: Pre-Anesthesia Assessment: - The heart rate, respiratory rate, oxygen saturations, blood pressure, adequacy of pulmonary ventilation, and response to care were monitored throughout the procedure. After I obtained informed consent, the scope was passed under direct vision. Throughout the procedure, the patient's blood pressure, pulse, and oxygen saturations were monitored continuously. The colonoscope was introduced through the anus and advanced to the ileocolonic anastomosis. The colonoscopy was performed without difficulty. The patient tolerated the procedure well. The quality of the bowel preparation was adequate to identify polyps. Scope In: 8:44:50 AM Scope Withdrawal Time 0 hours 16 minutes 40 seconds Scope Out: 9:15:51 AM Total Procedure Duration Time 0 hours 31 minutes 1 second Findings: Skin tags were found on perianal exam. There was evidence of a prior functional end-to-end ileo-colonic anastomosis in the mid transverse colon. This was patent and was characterized by healthy appearing mucosa. The anastomosis was traversed. Two semi-sessile, non-bleeding polyps were found in the rectum and mid transverse colon. The polyps were 5 mm in size. Biopsies were taken with a cold forceps for histology. Estimated blood loss was minimal. The retroflexed view of the distal rectum and anal verge was normal and showed no anal or rectal abnormalities. Multiple small and large-mouthed diverticula were found in the sigmoid colon. No biopsies or other specimens were collected for this exam. Impression: - Perianal skin tags found on perianal exam. - Patent functional end-to-end ileo-colonic anastomosis, characterized by healthy appearing mucosa. - Two 5 mm, non-bleeding polyps in the rectum and in the mid transverse colon. Biopsied. - The distal rectum and anal verge are normal on retroflexion view. - Diverticulosis in the sigmoid colon. No specimens collected. Recommendation: - Discharge patient to home (via wheelchair). - Resume previous diet today. - Continue present medications. - Await pathology results. - Repeat colonoscopy date to be determined after pending pathology results are reviewed for surveillance based on pathology results. - Telephone my office for pathology results in 1 week. - High fiber diet today. Procedure Code(s): --- Professional --- 67427, Colonoscopy, flexible; with biopsy, single or multiple Diagnosis Code(s): --- Professional --- Z85.038, Personal history of other malignant neoplasm of large intestine Z98.0, Intestinal bypass and anastomosis status K62.1, Rectal polyp D12.3, Benign neoplasm of transverse colon (hepatic flexure or splenic flexure) K64.4, Residual hemorrhoidal skin tags K57.30, Diverticulosis of large intestine without perforation or abscess without bleeding CPT copyright 2017 [employer]. All rights reserved. The codes documented in this report are preliminary and upon sales order processor review may be revised to meet current compliance requirements. Cheo Tamayo MD 05/03/2022 9:27:02 AM This report has been signed electronically. Number of Addenda: 0 Note Initiated On: 05/03/2022 8:26 AM
--- NOTE | 2022-05-03 09:27 | OP.CCLET_ITS ---
05/03/2022 Ron Gutierrez [address] [place] [address] Re : Colonoscopy procedure for Kelly Flynn Dear Dr. Gutierrez This procedure was performed on April. My impressions and recommendations are as follows: Impressions : - Perianal skin tags found on perianal exam. - Patent functional end-to-end ileo-colonic anastomosis, characterized by healthy appearing mucosa. - Two 5 mm, non-bleeding polyps in the rectum and in the mid transverse colon. Biopsied. - The distal rectum and anal verge are normal on retroflexion view. - Diverticulosis in the sigmoid colon. No specimens collected. Recommendations : - Discharge patient to home (via wheelchair). - Resume previous diet today. - Continue present medications. - Await pathology results. - Repeat colonoscopy date to be determined after pending pathology results are reviewed for surveillance based on pathology results. - Telephone my office for pathology results in 1 week. - High fiber diet today. My findings are described in the full procedure note, which is enclosed. If I can be of further assistance, please feel free to contact me at Doctor phone number(s): , Work: . Sincerely, Cheo Tamayo MD 05/03/2022 9:27:02 AM This report has been signed electronically.
== END 2022-05-03 10:30 | disposition home or self-care (01) ==
LOC: EN 07:35 → AC 07:36
PROVIDERS: PCP Family Medicine; Referring Provider Family Medicine; Visit Provider Surgery
PROC: 0DJD8ZZ Inspection of Lower Intestinal Tract, Via Natural or Artificial Opening Endoscopic (ICD-10-PCS; CPT 45378; principal; 2022-05-03 08:25)
DX: Z12.11 Encounter for screening for malignant neoplasm of colon (principal); K57.30 Diverticulosis of large intestine without perforation or abscess without bleeding; F17.210 Nicotine dependence, cigarettes, uncomplicated; K62.1 Rectal polyp; K64.4 Residual hemorrhoidal skin tags; D12.3 Benign neoplasm of transverse colon; Z85.038 Personal history of other malignant neoplasm of large intestine
CPT/HCPCS: 45380; 88305; J7120; J2405

== ENCOUNTER → 2022-11-26 | Outpatient (CLI) | payer BC, SELFPAY ==
[2022-11-26 18:04] LABS: Absolute Lymphocyte Count 2.72 X10^3/uL (0.83-4.51); Absolute Neutrophil Count 6.9 X10^3/uL (2.0-7.7); Basophil# 0.05 X10^3/uL; Basophil% 0.5 % (0-1); Eosinophils% 1.9 % (0-5); Hematocrit 41.6 % (37-47); Hemoglobin 14.2 g/dL (12.0-15.0); Lymphocyte # 2.72 X10^3/ul (0.83-4.51); Lymphocyte % 25.9 % (19-41); Mean Corp Hgb Conc 34.1 g/dL (32-36); Mean Corpuscular Hgb 30.7 pg (27.0-32.0); Mean Corpuscular Volume 89.8 fL (81-99); Mean Platelet Vol. 10.3 fl (6.2-12.0); Monocyte# 0.56 X10^3/uL; Monocyte% 5.3 % (0-10); NRBC Flagged by Analyzer 0 % (0-5); Neutrophil # 6.92 X10^3/uL (2.7-7.7); Neutrophil % 65.9 % (47-70); Platelet Count 302 K/mm3 (150-450); RBC Distribution Width CV 14.1 % (11.6-14.6); RBC Distribution Width SD 46.3 fl (35.1-43.9); Red Blood Count 4.63 M/mm3 (4.2-5.4); White Blood Count 10.5 K/mm3 (4.4-11.0)
[2022-11-26 18:14] LABS: Erythrocyte Sedimentation Rate 16 mm/hr (0-30)
[2022-11-26 18:20] LABS: Hemoglobin A1c 5.6 % (3.8-5.6)
[2022-11-26 18:37] LABS: ALB/GLOB Ratio 0.9 RATIO (0.9-2.4); AST(SGOT) 20 U/L (15-37); Alanine Aminotransfer ALT/SGPT 30 U/L (13-56); Albumin, Serum 3.7 g/dL (3.2-5.0); Alkaline Phosphatase 118 U/L (45-117); Anion Gap 5 (5-15); BUN 15 mg/dL (7-18); BUN/Creat Ratio 17.6 RATIO (10-20); Calcium,Total 9.4 mg/dL (8.5-10.1); Chloride 107 mmol/L (98-107); Creatinine, Serum 0.85 mg/dL (0.55-1.02); EST Glomerular Filtration Rate 74 mL/min (>60); Est Glom Filt Rate - Afr Amer 89 mL/min (>60); Ferritin 153 ng/mL (8-252); Free T3 2.2 pg/mL (2.18-3.98); Glucose 104 mg/dL (74-106); Potassium 3.9 mmol/L (3.5-5.1); Protein, Total 7.7 g/dL (6.4-8.2); Sodium Level 139 mmol/L (136-145); T4 Free Direct 0.84 ng/dL (0.76-1.46)
[2022-11-26 18:53] LABS: Hepatitis C Antibody Non-Reactive (Nonreactive); Syphilis Antibodies Non-reactive; Vitamin B12 525 pg/mL (211-911)
[2022-11-28 12:09] LABS: Carcinoembryonic Antigen 4.9 ng/mL (0.0-4.7); Lyme Scn Total Ab w/Rflx Negative (Negative)
== END | disposition home or self-care (01) ==
LOC: MTLAB 15:44
PROVIDERS: PCP Family Medicine; Referring Provider Family Medicine; Visit Provider Family Medicine
DX: E04.1 Nontoxic single thyroid nodule (principal); N95.1 Menopausal and female climacteric states; Z85.038 Personal history of other malignant neoplasm of large intestine; R53.81 Other malaise
CPT/HCPCS: 36415; 80053; 82378; 82607; 82728; 82746; 83036; 84439; 84443; 84481; 85025; 85652; 86618; 86780; 86803

== ENCOUNTER → 2023-08-12 | Outpatient (CLI) | payer BC, SELFPAY ==
--- NOTE | 2023-08-12 16:15 | RAD_ITS ---
INDICATION: pain EXAMINATION/TECHNIQUE: X-RAY - LEFT XR Knee 3 Views COMPARISON: FINDINGS: SOFT TISSUES: No soft tissue swelling or gas. No radiopaque foreign body. BONES/JOINTS: No acute fracture or subluxation.. Slightly narrowed medial femoral tibial compartment.. Preservation of the joint space.. No sclerotic or destructive changes observed. RAD/Knee 3 Views IMPRESSION: Slightly narrowed medial femorotibial compartment. Electronically Signed: Castillo Nair DO at 23:54 EDT ,
== END | disposition home or self-care (01) ==
PROVIDERS: PCP Family Medicine; Referring Provider Nurse Practitioner Family; Visit Provider Nurse Practitioner Family
DX: M25.562 Pain in left knee (principal)
CPT/HCPCS: 73562

== ENCOUNTER → 2023-09-17 | Outpatient (CLI) | payer BC, SELFPAY ==
--- NOTE | 2023-09-17 10:52 | MRI_ITS ---
STUDY: MRI LEFT KNEE REASON FOR EXAM: Female, 53 years old. Left knee pain. TECHNIQUE: Standardized fat and water weighted pulse sequences were obtained in all 3 orthogonal planes. COMPARISON: Left knee radiographs dated 08/12/2023. FINDINGS: There is degenerative free edge tearing of the body and posterior horn of the medial meniscus with peripheral extrusion. There is degenerative arthrosis of the medial femorotibial compartment with joint space narrowing, tiny marginal osteophyte formation, moderate to high-grade chondromalacia, and subchondral marrow edema on both sides of the joint. Intact medial collateral ligamentous complex (MCL). Normal distal semimembranosus, gracilis and semitendinosus tendons. Normal lateral meniscus. Normal hyaline cartilage of the lateral femorotibial compartment. There is mild osteoarthritic spur formation of the lateral knee compartment. Normal proximal tibiofibular articulation. Normal lateral collateral (fibular) ligament. Normal popliteus tendon. Normal biceps femoris tendon. Normal anterior cruciate ligament (ACL). Normal posterior cruciate ligament (PCL). There is moderate grade chondromalacia along the patellar apex. Congruent patellofemoral articulation. Normal medial and lateral patellar retinaculum. Normal quadriceps tendon. Normal patellar tendon. Normal Hoffa''s fat pad. There is a tiny joint effusion. There is a septated popliteal cyst, spanning a craniocaudal distance of approximately 4 cm, with synovitis. The soft tissues are unremarkable. There is no acute fracture. MRI/Lower Ext Joint Only (Routine) IMPRESSION: Degenerative free edge tearing of the body and posterior horn of the medial meniscus with peripheral extrusion. Tricompartment degenerative arthrosis, most severe in the medial femorotibial compartment. Tiny joint effusion. 4 cm septated popliteal cyst, with synovitis. Electronically Signed: Kaushal Zuñiga MD at 12:26 EDT ,
== END | disposition home or self-care (01) ==
PROVIDERS: PCP Family Medicine; Referring Provider Physician Assistant; Visit Provider Physician Assistant
DX: M25.562 Pain in left knee (principal); S83.8X2A Sprain of other specified parts of left knee, initial encounter
CPT/HCPCS: 73721

== ENCOUNTER 2023-10-04 14:00 | Outpatient (RCR) | payer BC, SELFPAY ==
--- NOTE | 2023-10-04 15:05 | HP.PTEVAL ---
Patient's Visit Information Visit Information Visit Information: SANDY DAVIDSON is a 53 year old F referred to Physical Therapy by Gabe Skelton PA-C with a diagnosis of SPRAIN OF LEFT KNEE MUNILATERAL PRIMARY OSTEOARTHRITIS. Date of Evaluation: 10/04/23 Physical Therapist: Bala Buck, PT, Cert MDT, OCS Visit Plan Frequency: 1VISIT Plan: PT EVAL ONLY PER PATIENT INSTRUCTING ON HOW TO USE FWW INSTRUCTED TO PATIENT ON FWW WITH TTDW LLE WITH GAIT Subjective Subjective: This 53 y/o female presents to physical with left knee pain. Patient developed knee pain without mechanism of injury. Patient seen DAVE Skelton . Then Seen DR Bruner had MRI showed degenerative free edge tearing of the body and posterior horn of the medial meniscus with peripheral extrusion tricompartmental degenerative arthrosis, most severe in the medial femorotibial compartment. want PT evaluation to show how to use FWW with little weight bearing. Aggravating walking/standing and unable to to squat. Pain with stairs. Denies paresthesia/tingling -. Location of pain medial knee constant ache. Patient is unable to RTW. RTD in 2weeks. Tried cortisone injection did not help. Patient stated DR cunha wants to show how to uses FWW SOCIAL: VOCATION: [place] Pain Left Knee: Pain Intensity (Out of 10): 10 Pain Intensity Range: 10 Objective Objective: POSTURE: mild forward posture GAIT: ambulates with fww decrease WB LLE with knee flexed EDEMA: absent PALAPTION: medial joint line AROM: 0-115 degrees supine knee flexion MMT: 4-/5 quads/hams Goals Goal 1:: Patient was seen for PT for gait training with TTWB Goal Time Frame: 1VISIST Rehabilitation Potential Physical Therapy Diagnosis: This patient has left knee pain had MRI showed meniscus severe arthrosis medial knee with decrease ROM ,weakness and impaired gait with recommendation for walker training Anticipated Interventions Patient/Client Instruction: Educate patient on: Condition and Plan of Care For the Purpose of:: To improve gait and locomotor functions and Other Other: GAIT TRAINING Text: Thank you for the opportunity to evaluate your patient. For Medicare and Medicare HMO plans, please review the plan of care and approve it. It will need to be FAXED BACK to us at [phone] for Medicare purposes. For Medicare only, by signing this I certify the plan of care. Please let me know if there are questions or concerns regarding this plan of care. Physician Signature: Date:
== END 2023-10-04 19:00 | disposition home or self-care (01) ==
LOC: PT 14:00
PROVIDERS: PCP Family Medicine; Referring Provider Physician Assistant; Visit Provider Physician Assistant
DX: S83.8X2D Sprain of other specified parts of left knee, subsequent encounter (principal); M17.12 Unilateral primary osteoarthritis, left knee; M21.162 Varus deformity, not elsewhere classified, left knee
CPT/HCPCS: 97162

== ENCOUNTER → 2023-11-07 | Outpatient (CLI) | payer BC, SELFPAY ==
--- NOTE | 2023-11-07 12:06 | CT_ITS ---
CT LEFT LOWER EXTREMITY WITH 3-D IMAGING CLINICAL INDICATION: LT KNEE OSTEOARTHRITIS TECHNIQUE: Axial CT images of the left lower extremity (including left hip, left knee, and left ankle) was performed without IV contrast material. Coronal and sagittal reformats were provided. The protocol utilizes one or more of the following dose reduction techniques: automated exposure control, adjustment of mA and/or kV according to patient size, and/or use of iterative reconstruction technique. RADIATION DOSAGE (If Supplied By Facility): CTDIvol = ( 18.77 ) mGy, DLP = ( 1222.81 ) mGycm COMPARISON: Left knee MRI dated 09/17/2023. FINDINGS: Bones: Unremarkable left hip joint. There is severe degenerative arthrosis of the medial femorotibial compartment of the left knee, with [id number], small marginal osteophyte formation, and subchondral sclerosis. There is mild degenerative arthrosis of the patellofemoral and lateral femorotibial compartments of the left knee. Unremarkable left ankle. Osseous structures are intact without evidence of fracture or dislocation. No lytic or blastic osseous masses. Soft Tissues: There is a small left knee joint effusion. There is a septated popliteal cyst, spanning a craniocaudal distance of approximately 6.5 cm. The deep soft tissue structures are otherwise unremarkable. The superficial soft tissues are unremarkable without evidence of edema, hematoma, or foreign body. CT/Extremity Lower without Contra IMPRESSION: Tricompartment degenerative arthrosis of the left knee, most severe in the medial femorotibial compartment. Small left knee joint effusion with a 6.5 cm septated popliteal cyst. Electronically Signed: Kaushal Zuñiga MD at 10:54 EDT ,
== END | disposition home or self-care (01) ==
LOC: CT 12:00
PROVIDERS: PCP Family Medicine; Referring Provider Student in an Organized Health Care Education/Training Program; Visit Provider Student in an Organized Health Care Education/Training Program
DX: M17.12 Unilateral primary osteoarthritis, left knee (principal)
CPT/HCPCS: 73700

== ENCOUNTER 2023-11-28 05:26 | Day surgery (SDC) | payer BC, SELFPAY ==
--- NOTE | 2023-11-07 12:05 | EKG12_ITS ---
Test Reason : PREOP Blood Pressure : / mmHG Vent. Rate : 081 BPM Atrial Rate : 081 BPM P-R Int : 160 ms QRS Dur : 066 ms QT Int : 360 ms P-R-T Axes : 048 -03 030 degrees QTc Int : 418 ms Normal sinus rhythm Normal ECG Confirmed by IRENE HURD, MARY ([id number]), editor index SULAIMAN GHOSH ([id number]) on 11/11/2023 11:10:43 AM Referred By: Dennis Bruner Confirmed By:MARY BONILLA MD
[2023-11-07 13:15] LABS: Absolute Lymphocyte Count 2.13 X10^3/uL (0.83-4.51); Absolute Neutrophil Count 8.4 X10^3/uL (2.0-7.7); Basophil# 0.06 X10^3/uL; Basophil% 0.5 % (0-1); Eosinophil# 0.16 X10^3/uL; Eosinophils% 1.4 % (0-5); Hematocrit 43.1 % (37-47); Hemoglobin 14.5 g/dL (12.0-15.0); Lymphocyte # 2.13 X10^3/ul (0.83-4.51); Lymphocyte % 18.7 % (19-41); Mean Corp Hgb Conc 33.6 g/dL (32-36); Mean Corpuscular Hgb 30.1 pg (27.0-32.0); Mean Corpuscular Volume 89.4 fL (81-99); Mean Platelet Vol. 10.2 fl (6.2-12.0); Monocyte% 5.3 % (0-10); NRBC Flagged by Analyzer 0 % (0-5); Neutrophil % 73.5 % (47-70); Platelet Count 299 K/mm3 (150-450); RBC Distribution Width CV 14.6 % (11.6-14.6); RBC Distribution Width SD 47.2 fl (35.1-43.9); Red Blood Count 4.82 M/mm3 (4.2-5.4); White Blood Count 11.4 K/mm3 (4.4-11.0)
[2023-11-07 13:45] LABS: Magnesium 2.3 mg/dL (1.6-2.6)
[2023-11-07 13:47] LABS: Albumin, Serum 3.6 g/dL (3.2-5.0); Anion Gap 8 (5-15); BUN 14 mg/dL (7-18); BUN/Creat Ratio 16.4 RATIO (10-20); Calcium,Total 9.7 mg/dL (8.5-10.1); Chloride 105 mmol/L (98-107); Creatinine, Serum 0.86 mg/dL (0.55-1.02); EST Glomerular Filtration Rate 73 mL/min (>60); Est Glom Filt Rate - Afr Amer 89 mL/min (>60); Glucose 95 mg/dL (74-106); Potassium 4.3 mmol/L (3.5-5.1); Sodium Level 137 mmol/L (136-145)
[2023-11-28] VITALS (13 sets, daily range): BP systolic 93–147; BP diastolic 64–93; PULSE 70–92; RESP 14–18; TEMP 36.1–37.5; O2SAT 94–100; BMI 32.3
[2023-11-28] MEDS: Lactated Ringers 1,000 ML 999 ML IV (06:11)
[2023-11-28] MEDS: Celecoxib 200 MG Capsule 400 MG PO (06:13)
[2023-11-28] MEDS: Acetaminophen 500 MG Tablet 1000 MG PO ×2 (06:14→14:15)
[2023-11-28] MEDS: Gabapentin 600 MG Tablet PO (06:14)
[2023-11-28] MEDS: Magnesium 1 GM over 15 mins IV (06:16)
[2023-11-28 06:53] LABS: Bedside Glucose 80 mg/dL (74-106)
--- NOTE | 2023-11-28 07:06 | PCM.PRE.AN2 ---
ASA Classification* ASA Classification ASA Classification: 2 Assessment & Plan Anesthesia* Anesthesia Assessment Anesthesia Assessment: Discussed sedation and/or anesthesia options, risks, benefits, and alternatives with patient/parents/legal guardian/POA. Questions invited. The patient/parents/legal guardian/POA seems to understand and agrees to proceed with anesthesia plan. Reviewed the physical assessment, medical history, allergy history and patient home medications list prior to surgery/procedure/anesthetic and documented any changes. Performed airway and anesthesia risk assessments. Anesthesia Type Anesthesia Type: Spinal (*see written pre anesthesia record for full assessment) Anesthesia Focused Assessment* Temperature: 97.2 F Pulse Rate: 78 Blood Pressure: 147/86 Respiratory Rate: 18 Pulse Ox: 99 Airway Assessment Mouth opens: >3 cm Mallampati Score: II Focused Labs Anesthesia Preop lab: CBC WBC 11.4 K/mm3 (4.4-11.0) H 11/07/23 12:38 RBC 4.82 M/mm3 (4.2-5.4) 11/07/23 12:38 Hgb 14.5 g/dL (12.0-15.0) 11/07/23 12:38 Hct 43.1 % (37-47) 11/07/23 12:38 Plt Count 299 K/mm3 (150-450) 11/07/23 12:38 CHEMISTRY Potassium 4.3 mmol/L (3.5-5.1) 11/07/23 12:38 Sodium 137 mmol/L (136-145) 11/07/23 12:38 Magnesium 2.3 mg/dL (1.6-2.6) 11/07/23 12:38 BUN 14 mg/dL (7-18) 11/07/23 12:38 Creatinine 0.86 mg/dL (0.55-1.02) 11/07/23 12:38 Glucose 95 mg/dL (74-106) 11/07/23 12:38 POC Glucose 80 mg/dL (74-106) 11/28/23 05:58 TSH 2.60 uIU/mL (0.358-3.74) 11/26/22 15:49 COAG PT 12.2 SECONDS (11.7-14.9) 04/04/21 11:22 Pre-Assessment Diagnosis/Proposed Procedure Planned Operative Procedure(s): (L) Total Knee Replacement Robotic Arm Assist Anesthesia History Anesthesia History - health diagnostics teacher: Anesthesia History - health diagnostics teacher Hx Hospitalization No 11/04/23 13:22 Any Problems With Anesthesia No 11/04/23 13:22 Cholinesterase deficiency No 11/04/23 13:22 You/Your Family Experience No 11/04/23 13:22 fever (hyperthermia) with Relationship Recent Exposure to Contagious No 11/28/23 06:22 Disease Does patient have nerve No 11/04/23 13:22 stimulator Patient instructed to have device shut off --Does patient have Pacemaker No 11/28/23 06:22 or ICD? When Was Last Pacemaker Check QUESTION #4 FULL TEXT: You/Your Family Experience fever (hyperthermia) with Anesthesia Last Oral Intake Last Oral intake: Last Oral Intake NPO since 00:00 11/28/23 06:22 Meds taken in AM with sips of No 11/28/23 06:22 water? Meds patient instructed to take am of surgery PONV PONV - health diagnostics teacher: PONV - health diagnostics teacher Female Yes 11/04/23 13:22 HX of Motion Sickness No 11/04/23 13:22 HX of N/V After Surgery No 11/04/23 13:22 Non-Smoker No 11/04/23 13:22 Duration of Surgery greater No 11/04/23 13:22 than 60 minutes Number of Risk Factors 1 11/04/23 13:22 PONV Score Low Risk 11/04/23 13:22 Height & Weight Height & Weight: Anesthesia: Height & Weight Height 4 ft 11 in 11/28/23 06:22 Weight: 72.575 kg 11/28/23 06:22 Body Mass Index (BMI) 32.3 11/28/23 06:22 Respiratory Assessment Respiratory Assessment - health diagnostics teacher: Respiratory Tract Infection Hx - health diagnostics teacher Hx Respiratory Tract Infection No 11/04/23 13:22 STOP Sleep Apnea STOP Sleep Apnea - health diagnostics teacher: STOP Sleep Apnea - health diagnostics teacher Hx Hypertension No 11/04/23 13:22 Hx Sleep Apnea No 11/04/23 13:22 CPAP BIPAP Do you snore loudly (louder No 11/04/23 13:22 than talking or can be heard Do you often feel tired/ No 11/04/23 13:22 fatigued/ sleepy during daytime? Has anyone observed you stop No 11/04/23 13:22 breathing during sleep? STOP Results Negative 11/04/23 13:22 QUESTION #5 FULL TEXT : Do you snore loudly (louder than talking or can be heard through closed doors)? 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 Specify any problems Hx of Preganancy in last 3 No 11/04/23 13:22 Months Nurse Filling Out Transfusion VCHRISTIN 11/04/23 13:22 & Questions: Date: 11/04/23 11/04/23 13:22 Time: 13:25 11/04/23 13:22 Patient unable to answer at this time (ie. confused, unrespo /Reproduction History /Reproductive History - health diagnostics teacher: /Reproductive Hx- health diagnostics teacher Hx Now No 11/04/23 13:22 Gestational Age (in weeks): EDC: Hx Hx Para Hx Section SAB No 11/04/23 13:22 Active Medications Active Medications: Current Medications Generic Name Dose Route Start Last Admin Trade Name Tiffanie PRN Reason Stop Dose Admin Acetaminophen 1,000 mg 11/28/23 07:30 11/28/23 06:14 Acetaminophen 500 Mg Tablet PO 11/28/23 07:31 1,000 mg X1 ONE Administration Celecoxib 400 mg 11/28/23 07:30 11/28/23 06:13 Celecoxib 200 Mg Capsule PO 11/28/23 07:31 400 mg X1 ONE Administration Sodium Chloride 77.4 ml/ 0 ml 11/28/23 07:30 Ropivacaine 200 mg/ OPERA.SITE 11/28/23 07:31 Epinephrine HCl 0.6 mg/ X1 ONE Ketorolac Tromethamine 30 mg/ Morphine Sulfate 5 mg Dexamethasone Sodium Phosphate 10 mg 11/28/23 07:30 Dexamethasone 10 Mg/Ml Vial IV 11/28/23 07:31 X1 ONE Gabapentin 600 mg 11/28/23 07:30 11/28/23 06:14 Gabapentin 600 Mg Tablet PO 11/28/23 07:31 600 mg X1 ONE Administration Lactated Ringer's 1,000 mls @ 999 mls/hr 11/28/23 07:30 11/28/23 06:11 IV 11/28/23 08:30 999 mls/hr .Q1H1M OH Administration Cefazolin Sodium 2 gm/ Sodium 110 mls @ 150 mls/hr 11/28/23 07:30 Chloride IV 11/28/23 08:13 PREOP ONE Tranexamic Acid 1,000 mg/ 110 mls @ 660 mls/hr 11/28/23 07:30 Sodium Chloride IV 11/28/23 07:39 X1 ONE Tranexamic Acid 1,000 mg/ 110 mls @ 660 mls/hr 11/28/23 07:30 Sodium Chloride IV 11/28/23 07:39 X1 ONE Lactated Ringer's 1,000 mls @ 125 mls/hr 11/28/23 07:30 IV 11/28/23 15:29 .Q8H OH Magnesium Sulfate 1 gm/ 102 mls @ 408 mls/hr 11/28/23 07:30 11/28/23 06:33 Dextrose IV 11/28/23 07:44 Infused X1 ONE Infusion Lactated Ringer's 1,000 mls @ 75 mls/hr 11/28/23 05:45 IV .[id number] OH Insulin Human Lispro 1 - 6 unit 11/28/23 07:30 Insulin Lispro 100 Unit/Ml Insuln.Pen SC Q4H PRN PRN BG>/= 180, SEE PROTOCOL Protocol PFSH Medical History Leg cramps Cancer Left ovarian cyst Wears partial dentures Wears dentures Alcohol use Marijuana use Arthritis Easy bruising Shortness of breath on exertion Smoker Allergy/AdvReac Type Severity Reaction Status Date / Time No Known Allergies Allergy Verified 11/28/23 06:06 Family History Mother Cancer Father Cancer Surgical History S/P laparoscopic colectomy (~03/2021) Hx of colonoscopy History of partial hysterectomy Hx of appendectomy History of Social History Smoking Status: Current every day smoker tobacco type: cigarettes Review of Systems (Anesthesia) ROS Narrative System reviewed and no additional complaints, except as documented.
--- NOTE | 2023-11-28 07:30 | KNEE_PTH ---
PATIENT: SANDY DAVIDSON LOC: [facility] – [place] U#:[id number] AGE/SX: 53/F ROOM: RE11/28/[address]: Dr. Dennis Bruner DO : 1970 BED: DIS: 11/28/2023 SPEC #: [id number] RECD: 11/28/23 10:04 STATUS: MONICA REWillard #: [id number] BRADY: 11/28/23 07:[address]: Dennis Bruner DEPT: SURGICAL PATHOLOGY RECD BY: Nemesio Boone ENTERED: 11/28/23 11:06 SP TYPE: TOTAL KNEE OTHR DR: Dr. Ron Gutierrez MD Tissues: Knee, NOS Procedures: Decalcification bone/plaque Surgery Specimen Level IV HEADER OPERATION: Total knee replacement robotic arm assist PRE-OP DIAGNOSIS: Grade IV osteoarthritis left knee TISSUE SUBMITTED: Bone and soft tissue left knee MICROSCOPIC DIAGNOSIS Bone and soft tissue, left knee, total knee replacement/resection: Pieces of bone with degenerative osteoarthritic changes. Dense fibroconnective tissue. : 12/04/2023 MICROSCOPIC DESCRIPTION Slides are reviewed. GROSS DESCRIPTION Received is one container designated bone and soft tissue left knee. The specimen consists of multiple fragments of carias-yellow bone measuring in aggregate 7.0 x 9.0 x 2.0 cm. A piece of soft tissue is noted attached to the bone measuring 2.0 x 1.0 x 0.3cm. A number of bony fragments contain articular surfaces consistent with tibial plateau and femoral condyle and displaying prominent osteophyte formation, eburnation and bone erosion. Soft tissue is submitted in its entirety. Legal Recruiter sections are submitted in two cassettes as follows: 1 - soft tissue, 2 - bone after decalcification. SYD/ 11/28/2023 TC: CPT: 13586, [id number]
[2023-11-28] MEDS: Cefazolin 2 GM in 0.9% Normal Saline (100mL Bag) 100 ML IV (07:39)
[2023-11-28] MEDS: TXA 1000mg in NS100 100ml (IVPB at Incision) 660 MG IV (07:48)
[2023-11-28] MEDS: dexAMETHasone 10 MG/ML Vial IV (07:58)
[2023-11-28] MEDS: TXA 1000mg in NS100 100ml (IVPB at Closure) 660 MG IV (08:43)
[2023-11-28] MEDS: JPS (Morphine 10mg/ml) OPERA.SITE (08:49)
[2023-11-28] MEDS: Lactated Ringers 1,000 ML 125 ML IV ×2 (09:20→10:23)
--- NOTE | 2023-11-28 09:20 | PCM.POST.ANE ---
Anesthesia: Postop Eval I Current Vital Signs Temperature: 98.0 F Pulse Rate: 83 Blood Pressure: 93/73 Respiratory Rate: 14 Pulse Ox: 96 Oxygen Delivery Method: Room Air Assessment Airway patent: Yes Spontaneous unlabored respirations: Yes Mental status: Awake and Calm nausea: No Vomiting: No Anesthesia Complication: No Fluid Hydration Crystalloid volume administer (ml): 1,400 Total IV fluid infused: 1,400 Progress Note Anesthesia document: Postop Eval 1 completed: Yes
--- NOTE | 2023-11-28 09:35 | OP.PCM_ITS ---
Report of Operation Date of Procedure: 11/28/23 Description of Surgical Findings:: Preoperative diagnosis: Left knee primary osteoarthritis Postoperative diagnosis: Left knee primary osteoarthritis Procedure: Press-fit left total knee arthroplasty Surgeon: Dennis Bruner DO Mobile Engineer: Helen Escobedo PA-C Anesthesia: Spinal with sedation, adductor canal block Anesthesiologist: Dr. Cabello Complications: None apparent Drains: None Estimated blood loss: 20 cc Urinary output: None recorded IV fluids: 1400 cc crystalloid Specimens: Total knee resections Surgical implants: Reg triathlon cruciate retaining femoral #1, primary tibial baseplate #1, triathlon X3 tibial bearing insert CS 10 mm Indications: This is a 70-[id number]-[id number] male seen in the outpatient setting diagnosed with left knee osteoarthritis with significant varus deformity. She failed nonoperative management with intra-articular corticosteroid injections, activity modification, bracing, [id number] analgesics. X-rays revealed grade 4 medial compartment changes. I recommended a left total knee arthroplasty. The risk, benefits, alternatives to procedure reviewed with patient at length and he agreed to proceed. Risks included but were not limited to bleeding, infection, loss of life or limb, need for additional surgery, persistent pain, intraoperative or postoperative fracture, instability, loosening of components, wound complications, stiffness, neurovascular injury, DVT or PE. Patient expressed understanding these risks and wished to proceed with surgery. Informed consent was obtained in the outpatient setting. Description of procedure: Patient was identified in the preoperative holding area by name, medical record number, and date of . Informed consent was confirmed with the patient. The operative knee was marked with a surgical marker. At time of her procedure, patient brought to the operative suite and positioned supine a standard operating table. Anesthesia then administered a spinal anesthetic. She was then repositioned in the supine position with all bony prominences well-padded. We then placed a well-padded pneumatic tourniquet on the left upper thigh. The left upper extremity was brought across patient's chest throughout the procedure. We then prepped and draped the left lower extremity in a normal, sterile orthopedic fashion. We performed a timeout with all parties in attendance in agreement with the side, site, operation be performed. No concerns were voiced and would like to proceed with surgery. 2 g Ancef was administered prior to the incision by anesthesia staff as well as 1 g IV TXA. First exsanguinated the left lower extremity with a Esmarch bandage. Tourniquet was inflated to 280 mmHg which remained inflated for 41 minutes. Esmarch was removed. I planned a standard midline approach to the left knee approximately 15 cm in length. Skin was sharply incised with a 10 blade scalpel developing full-thickness layers down to the retinaculum. Layers were developed identifying the VMO. I then planned a standard medial parapatellar arthrotomy performed in flexion. The anterior horn of the medial meniscus was released. Hoffa's fat pad was then released. I then everted the patella in extension and brought the knee into 90 degrees of flexion. The anterior horn of the lateral meniscus was then released. The ACL was split in its mid substance with a 10 blade. We then brought the knee back into extension. The patella was examined after was everted and cartilage appeared to have only mild chondromalacia. Given her lack of significant patellofemoral joint space narrowing on x-ray I did not resurface the patella. I then placed pins in the metaphyseal distal femur medial to lateral for the Jarrett arrays. In similar fashion, I made a 2 cm incision approximately a handsbreadth distal to the tibial tubercle along the medial aspect of the tibia, drilling 2 bicortical pins for the tibial array. The knee was brought into flexion. The patella was subluxed laterally but not everted. Medial lateral retractors were placed. We then utilized the Social Plus software to confirm our planned surgical procedure and oriented with the patient's osseous anatomy. All checks with the Social Plus system were confirmed. Patient had a flexible varus deformity after performing stress examination utilizing the [employer] Plus software. With minimal alignment changes of the components via the Jarrett software, the knee appeared to balance well. I first started with the tibial cut, ensuring protection of the MCL and patellar tendon. A tibial wafer was then excised. I then proceeded to make the posterior femoral, anterior, anterior chamfer cuts with the same blade. Ligaments were protected with Intermedics retractors. Sawblade was then exchanged to perform the distal femoral and posterior chamfer cuts. The robot was then removed from the surgical field. Remaining loose bone and meniscus was excised carefully. Posterior osteophytes were removed from the distal femur with a curved osteotome and rongeur. Trial components were then placed. Balance was excellent in both extension and 90 degrees flexion. There was some recurvatum noted with a 9 mm polyethylene insert and I increased to a 10 mm insert. No mid flexion instability was apparent. Patella was trialed. Tracking was excellent. We then marked for tibial baseplate. Distal femoral pegs were drilled. Tibial keel was punched. Trials were removed. Press-fit prongs were drilled for. Periarticular block was administered. The wound was copiously irrigated with normal saline solution. Betadine solution was irrigated into the wound and the wound edges. Tourniquet was deflated. Hemostasis was excellent. An additional 1 g TXA was administered IV. I selected a size 10 mm polyethylene which was placed and impacted per reinforcement maker recommendations. Final components appeared very well balanced with excellent range of motion. There is no significant remaining flexion contracture. The wound was copiously irrigated with normal saline solution. Capsule was closed watertight with #1 strata fix barbed suture. Deeper report muscle layer was reapproximated with 0 Vicryl suture. Dermis was reapproximated buried interrupted 2-0 Vicryl suture. Skin was finally reapproximated gosia. Patient tolerated the procedure well without apparent complication. She was safely awakened in the operative suite, transferred to his hospital bed and subsequently to PACU in stable condition. Need for skilled assistant director of plant operations: Helen Escobedo PA-C was critical to the outcome of the case. During the course of the procedure the physician assistant director of plant operations played a vital role. Her intimate knowledge of my steps in the procedure aided in safe and expedient completion of the procedure. The PA played a vital role in positioning particularly in obtaining the appropriate positioning. The PA was also vital in the retraction of soft tissues during the exposure and projecting vital structures. The PA was also vital and protecting soft tissues during times of bony cuts. She also played a vital role in closure with my direct supervision. The PA was also important during reduction and dislocation of the joint and trials intraoperatively. Post Operative Plan: Plan for outpatient same-day discharge today. Will mobilize with therapy after spinal wears off. Outpatient physical therapy to start 12/02/2023. Weightbearing: Range of motion and weightbearing as tolerated left lower extremity. Antibiotics: Ancef 2 g prior to incision. 1 dose IV 1 g Ancef prior to discharge. DVT Prophylaxis: Multimodal with SCDs, SANTIAGO hose, early mobilization, aspirin 81 mg twice daily. James: None Dressing: Maintain silver dressing x5 days X-Rays: 2-week x-rays in the office. Follow-up: 2 weeks in office for staple removal
--- NOTE | 2023-11-28 09:40 | RAD_ITS ---
STUDY: X-RAY - LEFT KNEE REASON FOR EXAM: Female, 53 years old. Post op -- AP and Lateral xray of operative knee in PACU. TECHNIQUE: 2 views of the left knee. COMPARISON: None. FINDINGS: There are new postoperative changes related to left total knee arthroplasty with patellar resurfacing. There is a vertical staple line along the anterior aspect of the knee. There is gas in the patellofemoral joint recess and anterior soft tissues, compatible with recent surgery. The orthopedic hardware components are intact. There is no periprosthetic fracture. Normal proximal tibiofibular articulation. RAD/Knee 1 or 2 Views IMPRESSION: New postoperative changes related to left total knee arthroplasty. Electronically Signed: Kaushal Zuñiga MD at 10:12 EDT ,
--- NOTE | 2023-11-28 09:57 | POSTOPAN2_ITS ---
Anesthesia Postop Eval I Sum Postop Eval Completion status Anesthesia document: Postop Eval 1 completed: Yes Anesthesia Postop Eval I Summary Anesthesia Postop Eval I Summary: Anesthesia Postop Eval I: Assessment Summary Airway patent Yes 11/28/23 09:21 REAL ESTATE AGENCY [email or web address] Spontaneous unlabored Yes 11/28/23 09:21 REAL ESTATE AGENCY [email or web address] respirations Mental status Awake,Calm 11/28/23 09:21 REAL ESTATE AGENCY [email or web address] nausea No 11/28/23 09:21 REAL ESTATE AGENCY [email or web address] Vomiting No 11/28/23 09:21 REAL ESTATE AGENCY [email or web address] Anesthesia Postop Eval I: Fluid Summary Crystalloid volume administer 1,400 11/28/23 09:21 REAL ESTATE AGENCY [email or web address] (ml) Colloids volume administered ( ml) Blood Product volume administered (ml) Total IV fluid infused 1,400 11/28/23 09:21 REAL ESTATE AGENCY [email or web address] Anesthesia Postop Eval I: Summary Notes Anesthesia Complication No 11/28/23 09:21 REAL ESTATE AGENCY [email or web address] Anesthesia Complication Comment: Post-operative progress note Anesthesia: Postop Eval II Evaluation Mental status: Awake Pain Level: 0 nausea: No Vomiting: No
--- NOTE | 2023-11-28 09:57 | PCM.POSTANE2 ---
Anesthesia Postop Eval I Sum Postop Eval Completion status Anesthesia document: Postop Eval 1 completed: Yes Anesthesia Postop Eval I Summary Anesthesia Postop Eval I Summary: Anesthesia Postop Eval I: Assessment Summary Airway patent Yes 11/28/23 09:21 MAINTENANCE [email or web address] Spontaneous unlabored Yes 11/28/23 09:21 MAINTENANCE [email or web address] respirations Mental status Awake,Calm 11/28/23 09:21 MAINTENANCE [email or web address] nausea No 11/28/23 09:21 MAINTENANCE [email or web address] Vomiting No 11/28/23 09:21 MAINTENANCE [email or web address] Anesthesia Postop Eval I: Fluid Summary Crystalloid volume administer 1,400 11/28/23 09:21 MAINTENANCE [email or web address] (ml) Colloids volume administered ( ml) Blood Product volume administered (ml) Total IV fluid infused 1,400 11/28/23 09:21 MAINTENANCE [email or web address] Anesthesia Postop Eval I: Summary Notes Anesthesia Complication No 11/28/23 09:21 MAINTENANCE [email or web address] Anesthesia Complication Comment: Post-operative progress note Anesthesia: Postop Eval II Evaluation Mental status: Awake Pain Level: 0 nausea: No Vomiting: No
[2023-11-28] MEDS: Cefazolin 1 GM/50 ML BAG IV (12:07)
[2023-11-28] MEDS: oxyCODONE 5 MG Tablet PO (13:02)
== END 2023-11-28 14:30 | disposition home or self-care (01) ==
LOC: SDC 05:26 → AC 06:03
PROVIDERS: Anesthesiology; PCP Family Medicine; Referring Provider Student in an Organized Health Care Education/Training Program; Visit Provider Student in an Organized Health Care Education/Training Program
PROC: 0SRD0JZ Replacement of Left Knee Joint with Synthetic Substitute, Open Approach (ICD-10-PCS; CPT 27447; principal; 2023-11-28 07:15)
DX: M17.12 Unilateral primary osteoarthritis, left knee (principal); M21.162 Varus deformity, not elsewhere classified, left knee; Z90.711 Acquired absence of uterus with remaining cervical stump; Z85.038 Personal history of other malignant neoplasm of large intestine; F17.210 Nicotine dependence, cigarettes, uncomplicated; Z79.82 Long term (current) use of aspirin
CPT/HCPCS: 27447; 01402; 64447; 36415; 73560; 80048; 82040; 82962; 83735; 85025; 87081; 88305; 88311; 93005; 97162; 97165; C1776; J7120; A4216; J2405; J3475

== ENCOUNTER 2024-01-28 13:30 | Outpatient (RCR) | payer BC, SELFPAY | END 2024-01-28 19:00 | disposition home or self-care (01) | LOC: PT 13:30 | PROVIDERS: PCP Family Medicine; Referring Provider Physician Assistant Surgical; Visit Provider Physician Assistant Surgical | DX: Z47.1 Aftercare following joint replacement surgery (principal); Z96.652 Presence of left artificial knee joint | CPT/HCPCS: 97110; 97140; 97161; 97530 ==

== ENCOUNTER 2024-03-16 05:36 | Emergency (ER) | payer BC, SELFPAY ==
[2024-03-16 05:38] VITALS: BP 130/110; PULSE 72; RESP 20; TEMP 36.7; O2SAT 99; BMI 31.4
--- NOTE | 2024-03-16 05:45 | EDS_ITS ---
HPI History of Present Illness Chief Complaint: Lower Extremity Injury Informant: patient Occured/Mechanism Comment: Atraumatic pain over the right greater trochanteric region Onset/Context/Timing Onset: Today Context: Sudden Onset Current Severity: Mild Maximum Severity: Severe Worsened by: Movement Relieved by: Nothing Associated Symptoms Associated Symptoms: Negative for Parasthesia, Weakness or Loss of Funtion Narrative Narrative: Patient is a 53-year-old woman who is status post left total knee arthroplasty who presents with atraumatic right hip pain. She localized the pain over the r ight greater trochanteric region. She denies fever, chills night sweats. She denies history of peptic ulcer disease, kidney disease or diabetes. She denies weight loss or night sweats. Patient has not noted a rash. Patient denies radicular pain. Patient denies bowel bladder dysfunction. Patient denies pain in the right leg or foot. Prior similar symptoms: No Recent Illness/Hospitalization: Yes PFSH PFSH Medical History Loose left total knee arthroplasty Leg cramps Cancer Left ovarian cyst Wears partial dentures Wears dentures Alcohol use Marijuana use Arthritis Easy bruising Shortness of breath on exertion Smoker Home Medications ?Medication ?Instructions ?Recorded ?Last Taken ?Type hydrocodone-acetaminophen 5-325mg 1 tab PO Q6H PRN PRN Pain 1 day #4 03/16/24 Unknown Rx 5mg-325mg TABLETS naproxen 500 mg tablet 500 mg PO BID #14 tabs 03/16/24 Unknown Rx Allergy/AdvReac Type Severity Reaction Status Date / Time trazodone AdvReac Nausea Verified 03/16/24 05:38 Family History Mother Cancer Father Cancer Surgical History S/P laparoscopic colectomy (~03/2021) Hx of colonoscopy History of partial hysterectomy Hx of appendectomy History of Social History Smoking Status: Current every day smoker tobacco type: cigarettes ROS ROS ED Constitutional Constitutional ED: Denies chills, fever(s), subjective, sweats or weight loss Cardiovascular Cardiovascular: Denies chest pain or palpitations Respiratory/Chest Respiratory/Chest: Denies cough, dyspnea or dyspnea on exertion Gastrointestinal Gastrointestinal: Denies abdominal pain, diarrhea, nausea or vomiting Genitourinary Genitourinary ED: Denies dysuria, hematuria or urinary frequency Musculoskeletal Musculoskeletal: Reports other Details: Per HPI narrative ; Denies arthralgias, back pain, myalgias or neck pain Integumentary Denies Abrasions or rash Neurologic Neurologic: Denies paresthesias or weakness Hematologic/Lymphatic Hematologic/Lymphatic: Denies easy bleeding or easy bruising EXAM Physical Exam Const Vital Signs: 03/16/24 05:38 03/16/24 05:49 Temperature 98.0 F Temperature Source Oral Pulse Rate 72 Respiratory Rate 20 H Blood Pressure 130/110 H 180/77 H Blood Pressure Mean 116 111 Pulse Ox 99 Oxygen Delivery Method Room Air Positive well nourished and well developed General Appearance ED: well developed HEENT Reports moist mucous membranes normocephalic and atraumatic Neck full ROM and supple Resp normal respiratory effort, no retractions and clear to auscultation bilaterally Cardio regular rate, regular rhythm, S1 normal heart sound, S2 normal heart sound and no murmurs GI non-tender, non-distended and no masses Palpation: soft Extremity normal to inspection and full ROM Extremity Narrative: There is no shortening of the right lower extremity. DP PT pulse are palpable. EHLs intact. Straight leg test and crossover test negative. Patella reflex and ankle reflex are symmetric. There is no clonus Babinski sign noted. Logrolling causes minimal discomfort. Refugio Rosa 4 test causes discomfort over the greater trochanteric region. She is able to lift her leg up against gravity. There is no skin lesions noted or evidence of bruising. She has normal sensation L2-L5 EHL is intact. General Extremety ED: Negative for cyanosis or edema General Extremity: Negative for cyanosis or edema Neuro oriented x3, CN's II-XII intact bilaterally, moves all extremities and no sensory deficits noted Sensorium / Orientation: alert Motor Exam: strength 5/5 throughout Deep Tendon Reflexes: Rt Patellar (L4): 2+ and Rt Ankle (S1): 2+ Deep Tendon Reflexes Back: Rt Patellar (L4): 2+ and Rt Ankle (S1): 2+ Plantar Reflex: Downgoing: bilateral MDM MDM MDM Narrative Medical decision making narrative: The patient was distracted and talking to the nurses areas that she complained of pain when I palpated now she does not. Will obtain x-ray. Patient was medicated with oral NSAIDs and opiate analgesia. 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 This was performed March 2021. Her CEAs have decreased over the past 12 months. Radiography Chest X-Ray - ED: Read by ED Physician (Three-view x-ray of the right hip reveals no abnormality. No fracture, subluxation dislocation or any significant arthritic changes.) Diagnostic Testing: Clinical Impression(s) from Imaging Studies Hip/Pelvis X-Ray 03/16/24 05:55 IMPRESSION: No evidence of displaced pelvic or hip fracture. Electronically Signed: Antonio Chamberlain MD at 6:40 EST , Treatment and Re-Evaluation Narrative: Patient was told that her x-rays were negative. Patient apparently told the nurse she wants her pain gone now. Patient was informed since she vomited after she received her pain medicines that she will be redosed. She requested formally to receive a shot. She was informed that there is no benefit of a shot versus pill. She was told that there have been studies that looked at the efficacy at 1 and 2 hours and there is no difference. She was informed that shot hurts, is more expensive and there is no benefit. Patient was able to ambulate. She had no difficulty ambulating according to the nurse. Discharge Plan Triage Chief Complaint: Lower Extremity Injury ED Provider: Joe Frey Dx/Rx/DC Orders Clinical Impression: Acute right hip pain, Elevated blood-pressure reading without diagnosis of hypertension, History of colon cancer Instructions: LEANDRA WALTERS Hip Strain Prescriptions: New hydrocodone-acetaminophen 5-325 mg tablet 1 tab PO Q6H PRN PRN (Reason: Pain) 1 Days Qty: 4 0RF naproxen 500 mg tablet 500 mg PO BID Qty: 14 0RF Primary Care Provider: Ron Gutierrez Referrals: Ron Gutierrez MD [Primary Care Provider] - 5-7 Days Good Pelayo MD [Med Staff - Active Staff] - 1 Week if not improving Print Language: [place] Disposition Disposition: Home, Self Care
[2024-03-16] MEDS: Naproxen 500 MG Tablet PO ×2 (05:47→07:23)
[2024-03-16] MEDS: HYDROcodone Bitartrate/Apap 5/325 Tablet PO ×2 (05:47→07:23)
[2024-03-16 05:49] VITALS: BP 180/77
--- NOTE | 2024-03-16 05:55 | RAD_ITS ---
EXAM: XR RIGHT HIP WITH PELVIS WHEN PERFORMED, 2 OR 3 VIEWS CLINICAL INDICATION: Injury/Pain TECHNIQUE: Two or three views of the right hip with pelvis when performed. COMPARISON: 01/31/2021 FINDINGS: BONES/JOINTS: Unremarkable. No displaced fracture. No destructive or sclerotic lesions. Note that overlapping bowel shadows may however obscure fine detail. Sacroiliac joint is unremarkable. No widening of the pubic symphysis. The articular structures are unremarkable. SOFT TISSUES: Unremarkable. No soft tissue swelling or gas. RAD/HIP, UNI W/ Pelvis 2-3 Views IMPRESSION: No evidence of displaced pelvic or hip fracture. Electronically Signed: Antonio Chamberlain MD at 6:40 EST ,
[2024-03-16] MEDS: Ondansetron ODT 4 MG Tablet PO ×2 (06:57→07:28)
[2024-03-16 07:37] VITALS: BP 178/76; PULSE 80; RESP 16; O2SAT 99
== END 2024-03-16 08:00 | disposition home or self-care (01) ==
PROVIDERS: Emergency Provider Emergency Medicine; PCP Family Medicine; Visit Provider Emergency Medicine
DX: M25.551 Pain in right hip (principal); R03.0 Elevated blood-pressure reading, without diagnosis of hypertension; F17.210 Nicotine dependence, cigarettes, uncomplicated; Z85.038 Personal history of other malignant neoplasm of large intestine
CPT/HCPCS: 73502; 99283

== ENCOUNTER 2024-06-05 14:49 | Outpatient (CLI) | payer BC, SELFPAY ==
--- NOTE | 2024-06-05 14:53 | CT_ITS ---
PROCEDURE: LOW DOSE CT LUNG SCREENING REASON FOR EXAM: Patient has smoked 1 pack per day for 39 years. Current smoker. History of colon cancer. TECHNIQUE: Low Dose CT Lung Screening without contrast COMPARISON: Comparison is made with prior study dated October 13, 2021. FINDINGS: PULMONARY NODULES: (Only nodules >6mm are reported) Nodules described below are on series 1 unless otherwise specified. Pulmonary Nodules: No concerning pulmonary nodules. Hardware:None Lymph Nodes:No mediastinal hilar or axillary lymphadenopathy. Heart and Vasculature:Normal heart size. No pericardial effusion.Thoracic aorta and pulmonary arteries have normal contours; noncontrast technique limits evaluation. Coronary Artery Calcifications: Present Lungs and Airways: Hyperinflation. Mild degree of emphysematous changes. Pleura:No pleural effusion. No pneumothorax. Upper Abdomen:Visualized portions of the upper abdominal viscera are unremarkable. Bones:Degenerative changes of the thoracic spine. CT/Low Dose CT Lung Screening IMPRESSION: 1. BASED ON THE ACR LUNG RADS FOR THE MOST SUSPICIOUS NODULE (IF ANY) DESCRIBE D IN THIS REPORT, THE OVERALL LUNG RADS SCORE IS 2.2 - BENIGN (BASED ON IMAGING FEATURES OR INDOLENT BEHAVIOR). RECOMMEND 12-MON TH SCREENING LDCT.. 2. SMOKING CESSATION COUNSELING IS RECOMMENDED IF THE PATIENT IS STILL SMOKING . 3. OTHER SIGNIFICANT FINDINGSNone. One or more dose reduction techniques were used (e.g., Automated exposure contr ol, adjustment of the mA and/or kV according to patient size, use of iterative reconstruction technique). The following information is provided for reference:Lung-RADS 2021 Assessment C ategories. Additional information involving Lung-RADS is available at www.acr.org. 0-INCOMPLETE 1-NEGATIVE:No nodules or definitely benign nodules. Complete, central, popcorn , or centric ring calcifications OR fat containing 2-BENIGN APPEARANCE (based on imaging features or indolent behavior). Juxtaple ural nodule: < 10mm AND solid; smooth margins; oval, entiform, or triangular shape Solid nodule: <6mm at baseline or new< 4mm Part solid Nodule: < 6mm total mean diameter at baseline Nonsolid nodule:(GGN) < 30mm OR >=30mm stable or slowly growing Airway nodule, subsegmental at baseline, new, or stable Category 3 nodule stabl e or decreased in size at 6-month follow-up CT or Category 3 or 4A nodules that resolve on follow-up OR category 4B findings prov en to be benign following diagnotic work up. 3 - Probably Benign (Based on imaging features or behavior) Solid Nodule: >= 6 to <8mm at baseline OR new 4 to <6mm Part-solid nodule: >= 6mm toal mean diam. with solid component <6mm at baseline OR new < 6mm total mean diam. Non-solid nodule: GGN >= 30mm at baseline or new Atypical pulmonary cyst: Growing cystic component (mean diam.) of thick-walled cyst Category 4A nodule stable or decreased in size at 3-month follow-up CT (excl.ai rway). 4A - Suspicious Solid nodule: >=8 to < 15mm at baseline OR growing < 8mm OR new 6 to < 8mm Part solid nodule: >= 6mm total mean diam. w/ solid component >=6mm to < 8mm at baseline OR new or growing < 4mm solid component Airway nodule, segmental or more proximal at baseline or new Atypical pulmonary cyst: Thick-walled OR multilocular at baseline OR becomes mu ltilocular 4B - Very Suspicious Airway nodule, segmental or more proximal, and stable or growing Solid nodule: >= 15mm at baseline OR new or growing >= 8mm Part solid nodule: Solid component >= 8mm OR new or growing >= 4mm solid compon ent Atypical pulmonary cyst: Thick-walled with growing wall thickness/nodularity OR Growing multilocular (mean diam.) OR Multilocular with increased loculation or new/increased opacity Slow-growing solid or part solid nodule w/ growth over multiple screening exams 4X - Very Suspicious Category 3 or 4 nodules with additional features that increase the suspicion fo r lung cancer. S - Clinically Significant or potentially significant findings (non-lung cancer ) Reading Location: [facility]
--- NOTE | 2024-06-05 15:22 | BI_ITS ---
PROCEDURE: SCRN MAMM (CAD)W/ALPHONSO BILAT REASON FOR EXAM: F, Age 54 y/o, . Routine mammogram. No family history. TECHNIQUE: Bilateral screening digital breast tomosynthesis with 2D and 3D images. Computer aided detection. COMPARISON: Prior exam(s) dating back to December 14, 2019.. FINDINGS: The breasts are heterogeneously dense which may obscure small masses. Stable small benign-appearing bilateral axillary lymph nodes. No suspicious masses, areas of developing architectural distortion, or suspicious calcifications. BI/SCRN MAMM (CAD)W/ALPHONSO BILAT IMPRESSION: BI-RADS 2: BENIGN. RECOMMEND ANNUAL MAMMOGRAPHIC SCREENING. Follow-up code: Routine Follow-up The patient will be notified of the results by letter. Reading Location: [id number]
== END 2024-06-05 23:59 | disposition home or self-care (01) ==
LOC: CT 14:53
PROVIDERS: PCP Family Medicine; Referring Provider Family Medicine; Visit Provider Family Medicine
DX: Z12.31 Encounter for screening mammogram for malignant neoplasm of breast (principal); F17.210 Nicotine dependence, cigarettes, uncomplicated
CPT/HCPCS: 71271; 77063; 77067

== ENCOUNTER → 2024-08-04 | Outpatient (CLI) | payer BC, SELFPAY ==
[2024-08-04 18:29] LABS: Absolute Lymphocyte Count 2.81 X10^3/uL (0.83-4.51); Absolute Neutrophil Count 8.2 X10^3/uL (2.0-7.7); Basophil# 0.05 X10^3/uL; Basophil% 0.4 % (0-1); Eosinophil# 0.22 X10^3/uL; Eosinophils% 1.8 % (0-5); Hemoglobin 13.4 g/dL (12.0-15.0); Lymphocyte # 2.81 X10^3/ul (0.83-4.51); Lymphocyte % 23.3 % (19-41); Mean Corp Hgb Conc 34.4 g/dL (32-36); Mean Corpuscular Hgb 30.2 pg (27.0-32.0); Monocyte# 0.66 X10^3/uL; Monocyte% 5.5 % (0-10); NRBC Flagged by Analyzer 0 % (0-5); Neutrophil # 8.24 X10^3/uL (2.7-7.7); Neutrophil % 68.5 % (47-70); Platelet Count 352 K/mm3 (150-450); RBC Distribution Width CV 14.2 % (11.6-14.6); RBC Distribution Width SD 45.7 fl (35.1-43.9); Red Blood Count 4.43 M/mm3 (4.2-5.4)
[2024-08-04 19:23] LABS: Erythrocyte Sedimentation Rate 17 mm/hr (0-30)
[2024-08-04 19:59] LABS: ALB/GLOB Ratio 1.4 RATIO (0.9-2.4); AST(SGOT) 24 U/L (<=31); Alanine Aminotransfer ALT/SGPT 21 U/L (<=34); Albumin, Serum 4.3 g/dL (3.5-5.0); Alkaline Phosphatase 108 U/L (35-104); Anion Gap 13 (5-15); BUN 18 mg/dL (4-19); BUN/Creat Ratio 20.1 RATIO (10-20); Calcium,Total 9.9 mg/dL (7.6-11.0); Chloride 104 mmol/L (98-108); Creatinine, Serum 0.88 mg/dL (0.70-1.20); EST Glomerular Filtration Rate 77 (>60); Globulin 3.2 g/dL (2.2-4.2); Glucose 92 mg/dL (70-99); Potassium 4.1 mmol/L (3.3-5.1); Protein, Total 7.5 g/dL (5.9-8.4); Sodium Level 139 mmol/L (133-145)
[2024-08-04 20:22] LABS: CPK Total, Creatine Kinase 110 U/L (24-195); Cholesterol 220 mg/dL (<=200); High Density Lipoprotein 37 mg/dL; Low Density Lipoprotein Calc. 151 mg/dL; Triglycerides 160 mg/dL; Very Low Density Lipoprotein 32 mg/dL (5-40); cholesterol:hdl ratio screen 6.01
[2024-08-06 15:08] LABS: PROEL- Albumin 3.5 g/dL (2.9-4.4); PROEL- Alpha-1 Globulin 0.3 g/dL (0.0-0.4); PROEL- Alpha-2 Globulin 1.1 g/dL (0.4-1.0); PROEL- Beta Globulin 1.2 g/dL (0.7-1.3); PROEL- Gamma Globulin 0.8 g/dL (0.4-1.8); PROEL- Globulin, Total 3.5 g/dL (2.2-3.9); PROEL-M-Spike Not Observed g/dL (Not Observed)
== END | disposition home or self-care (01) ==
LOC: MTLAB 15:24
PROVIDERS: PCP Family Medicine; Referring Provider Family Medicine; Visit Provider Family Medicine
DX: R25.2 Cramp and spasm (principal); Z13.220 Encounter for screening for lipoid disorders; E04.1 Nontoxic single thyroid nodule
CPT/HCPCS: 36415; 80053; 80061; 82550; 84165; 84443; 85025; 85652

== ENCOUNTER → 2025-01-26 | Outpatient (CLI) | payer BC, SELFPAY ==
--- NOTE | 2025-01-26 15:29 | RAD_ITS ---
PROCEDURE: CHEST PA AND LATERAL 01/26/2025 REASON FOR EXAM: BRONCHITIS TECHNIQUE: Procedure Code: RADCXR Modality: DX Procedure: CHEST PA AND LATERAL COMPARISON: Frontal chest, 02/04/2020. FINDINGS: The lungs are clear. There are no pleural effusions. The heart size is normal. There is calcific vascular disease of the thoracic aorta. The upper abdominal bowel gas pattern is normal. There are no acute bony abnormalities of the chest. RAD/Chest PA and Lateral IMPRESSION: No evidence of acute cardiopulmonary pathology. Other findings as noted. Reading Location: [id number]
== END | disposition home or self-care (01) ==
LOC: MTRAD 15:25
PROVIDERS: PCP Family Medicine; Referring Provider Family Medicine; Visit Provider Family Medicine
DX: J40 Bronchitis, not specified as acute or chronic (principal)
CPT/HCPCS: 71046